=== PATIENT | female | born 2000 | race Caucasian/White ===

== ENCOUNTER 2020-04-22 09:00 | Outpatient (RCR) | payer MEDICAID, SELFPAY ==
--- NOTE | 2020-04-22 09:05 | BH.SGPN.GN ---
Behaviors/Verbalizations/Mental Status: [] Client alert and oriented, casual appearance. Eye contact good. Motor activity appropriate. Speech within normal limits. Affect congruent, mood anxious. Thoughts linear, logical, no signs of hallucinations or delusions. Reviewed client?s symptom tracker, no risk for suicidal ideation, plan, or intent as of 04/22/20. Client Response/Progress/Benefit: [] Client responded well to session, first day in IOP tx and she did well to remain attentive and engaged throughout. Client reports feeling nervous but excited today as she is anxious to start group therapy for the first time but is excited to be taking this step for her mental health. Expressed that her current positives include recognizing the need for help with her anxiety and reaching out for additional support, as well as making progress on repainting her room. Client shared wanting to learn new coping skills for her anxiety. Current stressor noted as adapting to the group environment but did well to identify that it may take some time to learn and find new skills to be helpful. Appeared to benefit from the support of the group environment. Will continue IOP tx to improve mood stability, increase healthy coping skill repertoire, and prevent decompensation. Narrative Note: []
--- NOTE | 2020-04-22 10:13 | BH.SGPN.GN ---
Behaviors/Verbalizations/Mental Status: []Client alert and oriented, neatly dressed and groomed. Eye contact good. Motor activity appropriate. Speech within normal limits. Affect unable to gather due to wearing a mask for COVID protocol, mood anxious. Thoughts linear, logical, no signs of hallucinations or delusions. Client Response/Progress/Benefit: []Client receptive of session, attentive in discussion and activity. Client discussed the quote and connected with personal and interpersonal consequences of not managing emotions. Client helped group identify barriers that impact one?s ability to communicate when emotions are high. These barriers included; negative thoughts, scattered thinking, and feeling out of control. Client stated it is important to communicate effectively when emotions are high to help supports understand. Attentive during psychoeducation on steps to improve emotional regulation. Client participated in the activity and did well to manage emotions throughout. Client did well to provide encouragement. Client appeared to benefit from increasing awareness of how emotions can impact communication and practicing in the moment coping skills. Client's first day of IOP. Will continue IOP tx to prevent decompensation of anxiety and depressive symptoms and to improve daily functioning. Narrative Note: []
--- NOTE | 2020-04-22 11:14 | BH.SGPN.GN ---
Behaviors/Verbalizations/Mental Status: []Client alert and oriented, neatly dressed and groomed. Eye contact good. Motor activity appropriate. Speech within normal limits. Affect unable to gather due to wearing a mask for COVID-19, mood anxious. Thoughts linear, logical, no signs of hallucinations or delusions. Client Response/Progress/Benefit: []Client engaged in session AEB client listening attentively to peers and providing input. Attentive during psychoeducation on 4 zones of regulation. Client able to identify feelings and behaviors for each zone. Group identified coping skills one can use to support self in each zone which included: journaling, opposite action, thought challenging, walking pets, listening to music, deep breathing, progressive muscle relaxation, and reaching out to supports. Client stated belief that she is in the yellow zone today because she feels anxious, nervous, and excited about it being her first day in IOP. Client reports she can benefit from going to [employer] today and sitting in nature. Benefited from increased education on zones of regulation or stages of alertness for emotions and healthy coping skills to use for each zone. Will continue IOP tx to prevent decompensation, improve mood stability, and increase healthy coping skills. Narrative Note: []
--- NOTE | 2020-04-22 14:44 | BH.COMM_ITS ---
Communication Note - Communication with Client Communication Note: Met with pt to complete intial paperwork and [place] suicide risk screening. No signicant changes since pre-admission screening. Low risk for suicide. Denies active SI, plan, or intent. Protective factors. Future- oriented. Pt denies any history of suicide attempts, but reported she once thought about writing letters when she was suicidal but then I stopped myself. Denies any cutting or other self-injurious behaviors.
--- NOTE | 2020-04-23 09:05 | BH.SGPN.GN ---
Behaviors/Verbalizations/Mental Status: [] Eye contact is good. Motor activity is appropriate. Appearance is casual. Speech is Appropriate. Mood is anxious. Affect is congruent. Thoughts are linear and logical. No evidence of psychosis. Reviewed daily check in sheet and no reports of suicidal ideations or intent. Client Response/Progress/Benefit: [] Pt was an active participant in group discussion. Daily symptom tracker notes 4/5 for anxiety. Emotion for today is tired and anxious. Shared that she is feeling emotionally overwhelmed and discussed some recent stressors which have been impacting her mood. Also notes that she did not sleep well last night. Yesterday was her first day in IOP and she beleives that it was helpful and is optimistic about the program. No progress noted. Benefited from group support, encouragment, and feedback. Will continues in IOP to maintain safety, increase functioning, and prevent decompensation. Narrative Note: []
--- NOTE | 2020-04-23 10:08 | BH.SGPN.GN ---
Behaviors/Verbalizations/Mental Status: []Client alert and oriented, casually dressed. Eye contact good. Motor activity appropriate. Speech within normal limits. Affect congruent, mood euthymic, anxious. Thoughts linear, logical, no signs of hallucinations or delusions. Client Response/Progress/Benefit: [] Client receptive of session, engaged throughout. She did well to work with the group on discussing the quote and identifying ways in which perspective can impact mental health and one's outlook. Client shared that learned behaviors and confirmation-bias has had impacts on her perspective in the past. Engaged in discussion on how one develops perspective. Client worked with group to identify how negative perspective can impact mental health which included: unrealistic expectations, self-sabotage, maintain depression and anxiety, assuming the worst, giving up, increased distorted thoughts, and relationship tension. Client connected with group discussion that having a positive or open-minded perspective can help a person overcome challenges, be more willing to seek help, and increase self-confidence. Provided insight that perspective can change depending on where we are currently at mental health brennan. Client appeared to benefit from increasing understanding of mental health benefits of a positive perspective and potential consequences to progress when perspective is negative. Progress noted in increased engagement in group environment. Will continue IOP tx to promote use of healthy coping skills, reduce anxiety symptoms further, and prevent decompensation. Narrative Note: []
--- NOTE | 2020-04-23 11:15 | BH.SGPN.GN ---
Behaviors/Verbalizations/Mental Status: []Client alert and oriented, casual dress, hygiene tended to. Eye contact good. Motor activity appropriate. Speech within normal limits. Affect congruent, mood anxious and euthymic. Thoughts linear, logical, no signs of hallucinations or delusions.? Client Response/Progress/Benefit: [] Client responded well to session, attentive and provided input throughout. Group shared that if one does not recognize their strengths, it could lead to increased mental health symptoms, taking on more than they can handle, and giving up on goals. Client provided a personal example of the power of perspective on self-esteem levels. Connected with the benefits of recognizing personal strengths on improving mental health which included: increased self-confidence, increased willingness to try new things, and open mindedness. Client able to identify personal strengths she possesses which includes: humor, intellect, and self-awareness. Client reported identified strengths have supported mental health progress in the past by allowing for her to remain positive and find the ?silver lining? in a negative situation, motivated her to work towards goals, and reminded herself of her own abilities in times in which she has struggled with self-doubt. Appeared to benefit from recognizing personal strengths and identifying strategies to increase recognition of strengths. ?Will continue IOP tx to prevent decompensation, improve consistent application of skills, as well as continue to improve mood stability and anxiety management. Narrative Note: []
--- NOTE | 2020-04-23 14:07 | BH.MDN ---
Multi-Disciplinary Note - Note 30-min Individual Time Started:: 12:23 Date: 04/23/20 Purpose of session/treatment goals addressed:: The purpose of this session was to gather information on client's current stressors, symptoms, and treatment goals. Another goal was to build rapport and provide psychoeducation. Eye Contact:: Good Motor Activity:: Appropriate Appearance:: Neat Speech:: Rapid Mood:: Euthymic, Anxious Affect:: Other - unable to gather due to wearing a mask for COVID-19 procotol. Thoughts:: Linear, Logical, No evidence of hallucinations/delusions noted Staff Interventions:: Therapist used active listening and open-ended questions to explore client's current stressors, symptoms, history, and treatment goals. Therapist used strengths perspective to build rapport and provide emotional support. Therapist provided psychoeducation on anxiety and maintainance cycles. Therapist gave client encouragement and normalized her anxiety on her first week of IOP. Therapist gave client homework to identify her physical warning signs, safety behaviors, and thoughts associated with anxiety. Client Response:: Client responded well to session, open to meeting with therapist. Client reported she felt less overwhelmed in group today and that client is starting to get used to the flow of IOP. Client willing to share some of her history with therapist. Client reported she has had anxiety forever and she began experiencing depression her radha year of high school. Client described her anxiety as an abusive partner because client's anxiety causes client to avoid, function poorly, and have negative thoughts. Client stated she used to have a better handle on her anxiety, but it has recently become worse. 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 Client reported she is on her 5th year in college because at one point her anxiety was so bad client's grades suffered. Client shared she gets panic attacks, has physical symptoms, and often has ruminations/intrusive thinking. Client reported last week she had intrusive thoughts about suicide which scared client. Client denies any suicidal ideations today. Client identified coping skills that have helped client in the past such as hiking, horseback riding, games, and being in nature. Client receptive to homework given by therapist. Risks/Concerns:: Client reported having intrusive suicidal ideations last week that lasted all day, but were controllable. Client shared she did not have a specific plans or intent to act on these thoughts. Client denies any active suicidal ideations, plan, or intent as of 04/23/20. Client reports ability to maintain safety and is future oriented. Progress Toward Goals/Plan:: Client's first week of IOP, is doing well to connect with peers and engage in group sessions. Client endorses a depressed mood, recent intrusive suicidal ideations, ruminations, panic attacks, racing thoughts, and inability to function at her baseline. Client worries that her anxiety will keep her from doing well in school. Will continue IOP tx to prevent decompensation, evaluate current medications, improve daily functioning, and reduce intensity of anxiety. Time Stopped:: 12:42
--- NOTE | 2020-04-24 09:16 | BH.NA_ITS ---
Physical Data - Vital Signs Pulse Rate: 72 Blood Pressure: 128/72 - Height/Weight Height: 1.6 m - stated Weight:: 95.254 kg - stated Weight in Pounds: 210.0 lbs Nutritional History - Appetite Nutritional Instructions:: If client shows signs of a swallowing problem, weight change of 10 pounds or more in the last month, or is on a diabetic diet, the physician will review and request a dietitian consult, as appropriate. All unintentional weight loss will be referred to the physician for decision on need for dietitian consult. Describe your appetite:: Fair - Client states that she has a decreased appetite from stress and her eating varies. Client states that she will eat 1-2 meals a day. Functional Assessment - Sleep Pattern Describe any problems with sleeping: Client states that she is not sleeping well and is having wierd/stressful dreams. Client states she is getting an average of 8 hours per night but was getting 12 hours of sleep prior. - Activities Motor Activity:: Functional - Client states that she had been feeling with low energy and motivation. Sensory/Communication Assess - Vision Problems Do you have any vision problems?: None - Communication Problems Do you have difficulty understanding what people are saying?: No Medical Problems/History - Additional History Additional comments:: Client states that she has a history of Depression, Anxiety, PTSD, and Panic disorder. Surgical History - Surgical History Have you had any surgeries? If so, list type and date:: Yes - Manilla teeth Substance Abuse - Substance Abuse Please describe substance abuse in the last 30 days:: Client states that she drinks ETOH occasionally/rarely. Client denies any tobacco use past or present. Client states that she has been using Marijuana daily to help with her panic attacks/anxiety. Client states that she consume caffiene, drinks pop 1-2 times per week. Mental Status Summary - Mental Status Significant Findings/Observations on Appearance and Mood:: Client is alert and oriented x4. Client is casually groomed. Client is cooperative with assessment, makes good eye contact during conversation. Client's speech is with normal rate and volume, coherent and spontaneous. Client appears mildly depressed and mildly anxious during assessment. Client makes logical associations, normal processing. Client denies delusions and hallucinations, none evident. Client appears to have good insight and judgement. Suicide Assessment - Suicidal Ideation Are you currently or have you been suicidal in the past?: No - Client reports past SI. Denies current SI/HI. Suicidal Intentional Rating Scale (SIRS): No suicidal thoughts (past or present), Suicidal thoughts (past) - Client states SI in the past, has never had any psychiatric admissions. Physician Notification: If Active suicidal thoughts/Will not contract for safety is checked, contact physician and document in the Physician Notification section below. Past Psychiatric History - MH Treatment Hx Past Psychiatric Medications:: Client states that she has been on past medications; Prozac, Zoloft, Effexor, Viibryd, Pristiq. Age of first mental health symptoms: Client states that she has had mental health symptoms for a long time but was officially diagnosed her freshman year in high school. Describe (age, circumstance, etc) any past hospitalizations: Client denies any past mental health hospitalizations. Current providers for mental health treatment (counselor, psychiatrist, catalytic case operator, etc.): Client states that she is seen by outpatient psych STACY Hernandez from [facility]. Client states that she sees a therapist at [facility] Zeinab Perez. Fall Risk Assessment - Age Age: Less than 60 - Mental Status Mental Status: Willing & able to ask for assistance when needed - Physical Status Physical Status: No problems - Impairments Impairments: None - Elimination Elimination: Continent AND independent - Gait or Balance Gait or Balance: Walks independently - Hx of Falls History of falls in the past 6 months: No known history - Medications/Substances Psychotropics:: Antidepressants, Antihistamines (e.g. Benadryl) Medications/substances used within the past 24 hours or ordered to administer: 1-2 of the medications/substances listed above - Total Score Total Points:: 1 RN Summary of Impressions - Impressions Recommendations: Include psychiatric and medical issues, treatment planning recommendations, and discharge planning needs. Impressions: Psychiatric Issues: Panic disorder (F41.0), generalized anxiety disorder, major depressive disorder recurrent moderate (F33.1); history of PTSD - Level of Care How do the client's current symptoms and functional deficits support need for this level of care?: Client details onset of current episode, stating it started approximately 2 weeks ago after stopping the Viibryd d/t having developed serotonin syndrome. Client states that she was having crying spells, daily panic asstacks, and increased anxiety. Client states that she would use Marijuana to try and treat the panic attacks and anxiety but it would not help. States she was having fleeting SI, low energy and motivation. Client states she is stressed from school, needing to bring her grades up for [employer]et school and resulting in her having to attend school longer with increased school debt. IOP will promote gains and prevent further decompensation while providing social support and skills training.
[2020-04-24 10:17] VITALS: BP 128/72; PULSE 72
--- NOTE | 2020-04-24 11:19 | BH.SGPN.GN ---
Behaviors/Verbalizations/Mental Status: []Client alert and oriented, casually dressed. Eye contact good. Motor activity appropriate. Speech within normal limits. Affect congruent, mood euthymic. Thoughts linear, logical, no signs of hallucinations or delusions. Client Response/Progress/Benefit: []Pt active participant as evidenced by pt providing input throughout session, taking notes, and completed worksheet. Pt engaged in discussion about discussing additional cognitive distortions. Pt engaged in discussion about how to reframe distorted thoughts to a more rational statement. Pt shared example of a personal distorted thought she has My boss seems angry so I must have done something wrong.? Pt reported this thought makes her feel anxious, nervous and on edge. Pt identified distortion to be personalization, mind-reading and predicting the future. Pt stated she reframed the distorted thought to ?I?m not responsible for how she feels, I know I didn?t do anything wrong?. Pt seemed to benefit from practicing identifying and reframing distorted thoughts. Pt to continue IOP level of care to increase healthy coping, decrease anxious symptoms and prevent decompensation. Narrative Note: []
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
--- NOTE | 2020-04-24 11:58 | BH.DR.ITP ---
Initial Treatment Plan - Patient Information Visit Information: ADMISSION DATE: EXPECTED LOS: 4-6 weeks - Problems/Symptoms Problem #1:: Anxiety Symptom:: Worry, rumination, panic attacks Problem #2:: Depression Symptom:: Sadness, decreased concentration, decreased motivation
--- NOTE | 2020-04-24 15:11 | BH.MTP_ITS ---
Master Treatment Plan - Patient Information Program Physician:: Dr. Soheila Juares Primary Therapist:: Jenae Combs - Psychiatric Diagnoses Psychiatric Diagnoses:: Panic disorder (F 41.0), generalized anxiety disorder, major depressive disorder recurrent moderate (F 33.1); history of PTSD Diagnosis Code(s):: F 41.0; F 33.1 - Estimated LOS Estimated LOS (in weeks):: 6 Problem/Goal #1 - Problem/Goal #1 Stated Goal:: Client will reduce anxiety and panic symptoms while increasing ability to function on daily basis. Description of Barriers: Client self-reports high, at times unrealistic, expectations for herself and perfectionism. Client shared this causes her to push herself too hard at times. 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 Client also self-identifies as a people pleaser and has difficulty advocating for her needs at times. Client has a history of serotonin syndrome and worries about medication. Client uses marijuana, which she self-reported is a safety behavior, but client reports it is one of the only things that helps with anxiety. Functional Impact: Client is a 20-year-old female with a history of panic disorder, DEL, and PTSD. Client has no history of psychiatric admissions. Client was referred to [facility] by her outpatient psychiatrist due to worsening depression, daily panic attacks, and fleeting suicidal ideations. Client reports an exacerbation of symptoms within the past two weeks which she believes was triggered by stopping her Viibryd due to serotonin syndrome. Client currently endorses crying spells, increased sleep, low energy, low motivation, lack of concentration, hopelessness, and anhedonia. Client reported she had fleeting suicidal ideations within the last two weeks, describing them as intrusive thoughts. Client denies that she would ever act on the thoughts, but she could t ell that it was getting bad and I needed help. Client's main stressors include school and student loans. 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 Client endorses severe anxiety with ruminations and daily panic attacks. Client reports she self- medicates with marijuana once a day. Client's anxiety and depressive symptoms have been impacting her daily functioning at home, school, and work. Client had to take time off from her job two weeks ago because of her anxiety. Client has not been back to work since. Goal Relevant Strengths/Supports: Client is a kind, intelligent, and hardworking young woman who verbalizes that she wants to improve her mental health. Client has strong family support and is self-motivated. 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 Client uses humor, animals, and creativity to cope with mental health. Client demonstrates good insight to her warning signs and has worked with her outpatient therapist on developing healthy coping skills. - Objectives Objective #1 Stated Objective: Client will identify 2-3 anxiety/panic triggers and 2 coping skills to use when feeling anxious to manage anxiety as shown by decreasing her DSM-5 scores for anxiety. Interventions: Therapist will provide education on anxiety, avoidance behaviors, and maintenance cycles. Therapist will help client explore personal symptoms and warning signs of anxiety. Therapist will teach client coping skills to improve emotional regulation, mindfulness, and distress tolerance to help client cope with anxiety in the moment. Discharge Criteria: Client will have accomplished this goal when she can identify at least 2 triggers and report using 2 coping skills to manage anxiety. Additionally, client will have accomplished this goal when her DSM-5 scores show a reducion for anxiety. Target Date: 06/03/20 Review Date: 05/22/20 Status: open Objective #2 Stated Objective: Client will identify 2-3 cognitive distortions that lead to rumination and learn 2-3 ways to manage these thoughts to better manage anxiety Interventions: Therapist will provide education on the most common cognitive distortions and teach client the connection between thoughts, emotions, and feelings. Therapist will assist client in identifying, challenging, and rep lacing dysfunctional thoughts with positive, more realistic thoughts. Therapist will use CBT and DBT techniques to help client gain awareness of thinking errors and learn how to more effectively handle negative thoughts. Therapist will also use self-compassion to help client set more realistic expectations for herself. Discharge Criteria: Client will have accomplished this goal when can identify at least 2 cognitive distortions and at least 2 coping skills to manage negative thoughts. Target Date: 06/03/20 Review Date: 05/22/20 Status: open Problem/Goal #2 - Problem/Goal #2 Stated Goal:: Client will reduce depressive symptoms, lack of motivation, and sadness due to major depressive disorder. Description of Barriers: Client self-reports high, at times unrealistic, expectations for herself and perfectionism. Client shared this causes her to push herself too hard at times. 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 Client also self-identifies as a pe ople pleaser and has difficulty advocating for her needs at times. Client has a history of serotonin syndrome and worries about medication. Client uses marijuana, which she self-reported is a safety behavior, but client reports it is one of the only things that helps with anxiety. Functional Impact: Client is a 20-year-old female with a history of panic disorder, DEL, and PTSD. Client has no history of psychiatric admissions. Client was referred to [facility] by her outpatient psychiatrist due to worsening depression, daily panic attacks, and fleeting suicidal ideations. Client reports an exacerbation of symptoms within the past two weeks which she believes was triggered by stopping her Viibryd due to serotonin syndrome. Client currently endorses crying spells, increased sleep, low energy, low motivation, lack of concentration, hopelessness, and anhedonia. Client reported she had fleeting suicidal ideations within the last two weeks, describing them as intrusive thoug hts. Client denies that she would ever act on the thoughts, but she could tell that it was getting bad and I needed help. Client's main stressors include school and student loans. 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 Client endorses severe anxiety with ruminations and daily panic attacks. Client reports she self- medicates with marijuana once a day. Client's anxiety and depressive symptoms have been impacting her daily functioning at home, school, and work. Client had to take time off from her job two weeks ago because of her anxiety. Client has not been back to work since. Goal Relevant Strengths/Supports: Client is a kind, intelligent, and hardworking young woman who verbalizes that she wants to improve her mental health. Client has strong family support and is self-motivated. 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 Client uses humor, animals, and creativity to cope with mental health. Client demonstrates good insight to her warning signs and has worked with her outpatient therapist on developing healthy coping skills. - Objectives Objective #1 Stated Objective: Client will identify at least 2-3 negative self-talk messages used to reinforce negative core beliefs and replace thoughts with positive, realistic messages. Interventions: Therapist will help client identify distorted, negative beliefs about self and replace with more realistic, affirmative messages. Therapist will use CBT to help client increase insight to the connection between thoughts, emotions, and behaviors. Therapist will also use dialectical thinking to help client combat all or nothing expectations. Therapist will encourage client to practice thought challenging. Discharge Criteria: Client will have achieved this goal when can verbalize at least 2 negative self-talk messages and effectively replace those thoughts with affirmative messages. Target Date: 06/03/20 Review Date: 05/22/20 Status: open Objective #2 Stated Objective: Client will learn and utilize 2-3 healthy coping strategies to better manage depressive symptoms as shown by a reduced DSM-5 scores for depression. Interventions: Through group and individual sessions, therapist will help client identify triggers and warning signs of depression and emotional dysregulation i ncluding emotional, physical, and behavioral changes. Therapist will teach client various coping skills to manage her symptoms and give client tangible resources to use to regulate emotions. Therapist will use cognitive restructuring techniques and help client gain awareness of negative thoughts that reinforce guilt and depression. Therapist will provide psychoeducation on maintenance cycles and help client learn ways to break unhealthy maintenance cycles. Therapist will help client incorporate behavioral activation and assist client in setting SMART goals. Discharge Criteria: Client will have met this goal when he can report learning and using at least 2 coping skills to manage depressive symptoms. Additionally, client will have met this goal when his depressive symptoms have reduced on the DSM-5 scale. Target Date: 06/03/20 Review Date: 05/22/20 Status: open
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
--- NOTE | 2020-04-25 09:08 | BH.SGPN.GN ---
Behaviors/Verbalizations/Mental Status: [] Client alert and oriented, casually dressed. Eye contact good. Motor activity appropriate. Speech within normal limits. Affect congruent, mood anxious, dysthymic. Thoughts linear, logical, no signs of hallucinations or delusions. Reviewed client?s symptom tracker, no risk for suicidal ideation, denies plan, or intent as of 04/25/20. Client Response/Progress/Benefit: [] Client attentive and willing to share with the group. Reports feeling ?overwhelmed and tired today as she is still adjusting to actively applying the skills learning in IOP tx, as well as remember all materials covered. Connected with discussion on breaking things down and focusing on small group take aways rather than trying to remember everything. Identified current mental health wins as teaching her mom about the different cognitive distortion which led to a positive discussion, as well as making the decision to practice self-love by taking additional time off work to focus on her mental health. Indicated this had been a difficult decision but she is proud of herself for making it. Appeared to benefit from identifying areas of progress as well as the supportive and structured group setting. Will continue IOP tx to continue to promote healthy skill application, improve mood stability and anxiety management, as well as prevent decompensation. Narrative Note: []
--- NOTE | 2020-04-25 10:17 | BH.SGPN.GN ---
Behaviors/Verbalizations/Mental Status: []Client alert and oriented, casual appearance. Eye contact good. Motor activity appropriate. Speech within normal limits. Affect congruent, mood dysthymic. Thoughts linear, logical, no signs of hallucinations or delusions. Client Response/Progress/Benefit: []Client responded well to session, contributing to discussion and engaged during the activity. Attentive during discussion on the quote. Group identified benefits to change included: personal growth, improving relationships, advancement in job, improved mood, better outlook on life, increased motivation and improved hopefulness. Worked with the group to identify barriers to change, which included: unmanaged emotions, toxic person, lack of knowledge of skills, fear of the unknown, self-sabotage, fear of failure, and cognitive distortions. Client participated along with group in activity where they identified and discussed the emotions related to change. Client reported her initial reaction to change varies based on the situation. At times she can embrace the change and other times she avoids change when possible. Benefited from increased awareness and understanding of emotions, benefits, and barriers related to change. Will continue IOP tx to increase healthy coping, challenge unrealistic expectations of self and prevent decompensation. Narrative Note: []
--- NOTE | 2020-04-25 11:16 | BH.SGPN.GN ---
Behaviors/Verbalizations/Mental Status: []Client alert and oriented, neatly dressed and groomed. Eye contact good. Motor activity appropriate. Speech within normal limits. Affect unable to gather due to wearing a mask for COVID-19 protocol, mood anxious. Thoughts linear, logical, no signs of hallucinations or delusions. Client Response/Progress/Benefit: []Client was an active participant, contributing to discussion and listening attentively to peers. Client participated during discussion on the change process as well as weighing the pros and cons associated with change. She shared specific emotions one might experience throughout the process of change, indicating anxiety and hope as emotions common with change. Client benefited from learning to work through pros/cons of personal changes through use of decisional balance sheet. Identified a change she wants to make is seeking a different type of treatment at [facility] for her anxiety. Client able to identify the pros and cons of this change and indicated that making the change would improve her mental health and potentially give her relief without the help of medications. Client?s goal today is to contact the providers at [facility] and learn more about the treatment. Recommended continued IOP tx to prevent decompensation of anxiety symptoms, improve mood stability, and reduce avoidance. Narrative Note: []
--- NOTE | 2020-04-29 09:04 | BH.SGPN.GN ---
Behaviors/Verbalizations/Mental Status: []Client alert and oriented, casually dressed and groomed. Eye contact good. Motor activity appropriate. Speech within normal limits. Affect unable to gather due to client wearing a mask for COVID-19 protocol. Mood anxious and irritable. Thoughts linear, logical, no signs of hallucinations or delusions. Therapist reviewed client?s symptom tracker and there were no signs of suicidal ideation or risk. Client Response/Progress/Benefit: []Client responded well to session, receptive to feedback from peers. Client reports feeling frustrated today. Client shared that the weekend was overall stressful, but there were good things too. Client reported she got to see her sister, saved a bird, and her mom helped client finish painting. Client reported that she experienced a lot of anxiety this weekend and felt overwhelmed. Client shared this caused negative thinking because client wants to get better quickly, so when she experiences anxiety client views it as starting over. Client receptive to thought challenging from group and recognized positives. Client appeared to benefit from reflecting on her use of coping skills and thought challenging in the moment. Will continue IOP tx to prevent decompensation of anxiety symptoms, improve work-related functioning, and increase mood stability. Narrative Note: []
--- NOTE | 2020-04-29 10:11 | BH.SGPN.GN ---
Behaviors/Verbalizations/Mental Status: [] Client alert and oriented, casual appearance. Eye contact good. Motor activity appropriate. Speech WNL. Affect congruent, mood euthymic and anxious. Thoughts linear, logical, no signs of hallucinations or delusions. Client Response/Progress/Benefit: [] Client responded well to session, attentive and engaged throughout discussion and activity. Client appeared to connect with the topic of fear of failure. Client reported that to her failure is ?a void? that can happened when not reaching a goal. Expressed that she has a hard time when faced with potential failure as she often views this as scary and painful. Group discussed common initial reactions to failure which included; decreased motivation, guilt, self-sabotage, and disappointment. Client connected with the concept that mindset is powerful in determining how a person moves forward after failing. Able to connect with the examples fellow participants shared of how failure can lead to future successes. Engaged and positive during the group activity, did well to guide fellow participants during activity. Client appeared to benefit from gaining awareness of the impact of fear of failure can have on one?s mental health and wellbeing. Progress noted in self-report of increased skill application and improved social anxiety management. Will continue IOP tx to prevent decompensation of mood symptoms, improve anxiety management, and continue to improve mental health sx management. Narrative Note: []
--- NOTE | 2020-04-29 11:20 | BH.SGPN.GN ---
Behaviors/Verbalizations/Mental Status: []Client alert and oriented, casual appearance. Eye contact good. Motor activity appropriate. Speech within normal limits. Affect congruent, mood anxious. Thoughts linear, logical, no signs of hallucinations or delusions. Client Response/Progress/Benefit: []Client responded well to session, participating during the group activity and willing to complete the worksheet. Client completed the fear of failure worksheet and reported that fear of failure has kept her from feeling confident in her abilities. Client able to identify barriers that reinforce her fear of failure which included: all or nothing thinking, lack of self-confidence, perfectionism, comparing self, expectations of others, and consequences of failing. Client attentive during discussion of the different strategies to help overcome fear of failure. Group identified strategies such as: positive self-talk, thought challenge, opposite action, redefine definition of failure, positive supports, and remembering that failure is a learning experience. Client appeared to benefit from learning ways to overcome fear of failure. Will continue IOP tx to increase healthy coping, challenge distorted thoughts and prevent decompensation. Narrative Note: []
--- NOTE | 2020-04-30 09:03 | BH.SGPN.GN ---
Behaviors/Verbalizations/Mental Status: [] Client alert and oriented, casually dressed. Eye contact good. Motor activity appropriate. Speech within normal limits. Affect congruent, mood euthymic, anxious. Thoughts linear, logical, no signs of hallucinations or delusions. Reviewed client?s symptom tracker, no risk for suicidal ideation, plan, or intent as of 04/30/20. Client Response/Progress/Benefit: [] Client attentive and willing to share with the group. Reports feeling excited but tired today as she has been trying to use all of the skills learned but feels a little emotionally overwhelmed by the amount of new information. Appeared to benefit from other participants normalizing these feelings for client. Client did well to identify current mental health wins which included reviewing cognitive distortions and helping her mom challenge her own negative thoughts, as well as making plans for self-care this weekend to begin playing a new video game she has been looking forward to. Expressed that her current stressor has been struggling with waking up ?shaky? but did well to implement health coping strategies such as deep breathing and listening to music to help this from ruining her whole day. Appeared to benefit from identifying areas of progress as well as the supportive and structured group setting. Will continue IOP tx to maintain gains, improve mood stability, and continue to promote healthy mental health sx management. Narrative Note: []
--- NOTE | 2020-04-30 10:16 | BH.SGPN.GN ---
Behaviors/Verbalizations/Mental Status: [] Client alert and orient. Appearance casual and appropriately groomed. Speech an appropriate rate and tone. Motor activity WNL. Mood anxious and euthymic, affect congruent. No evidence of delusion or hallucinations. Client Response/Progress/Benefit: [] Pt receptive to session, participating throughout. Provided input as the group brainstormed the positive and negative aspects of stress on physical and mental health. Group worked together to define stress and pt noted that to her stress is an overwhelming feeling or sense of obligation. Identified daily responsibilities as being common stressors. Group did well to identify that the benefits of stress include: motivates us, heightened senses/focus, increased productivity, and keeps us safe. Identified personal impacts of too much stress as: decreased performance, irritability, lashing out, and isolation/avoidance. Client identified her own current stressors as worries related to getting back to work, medication management, finishing her room, finances, physical and mental health, as well as fears about her future. Client reports that the level of her stress jar is ?Pretty full, but not overflowing yet?. Indicated being in IOP treatment has already assisted in better managing current stressors. Progress in improved insight and ability to recognize barriers impacting mental health progress as well as apply healthy coping skills. Recommended to continue IOP tx to improve healthy coping skill application, reduce mental health sx, and prevent decompensation. Narrative Note: []
--- NOTE | 2020-04-30 10:16 | BH.SGPN.GN ---
Behaviors/Verbalizations/Mental Status: []Client alert and oriented, casually dressed and groomed. Eye contact good. Motor activity appropriate. Speech within normal limits. Affect unable to gather due to wearing a mask for COVID-19 protocol, mood euthymic, anxious. Thoughts linear, logical, no signs of hallucinations or delusions. Client Response/Progress/Benefit: []Client receptive to session, participating throughout. Provided input as the group brainstormed the positive and negative aspects of stress on physical and mental health. Provided input on quote, indicating that choosing one thought over another is thought redirecting. Group worked together to define stress and provided input during discussion about eustress vs distress. Client identified her stressors today to include: getting back to work, medications, painting her bedroom, money, health, weight loss, mental health, and worries about future. Client reported her stress jar is not overflowing due to the help and support she has received at IOP. Seemed to benefit from increased awareness of her current stressors and insight of how stress impacts client. Recommended to continue IOP tx to continue healthy coping skill application, reduce mental health sx, and prevent decompensation. Narrative Note: []
--- NOTE | 2020-04-30 11:14 | BH.SGPN.GN ---
Behaviors/Verbalizations/Mental Status: []Client alert and oriented, neatly dressed and groomed. Eye contact good. Motor activity appropriate. Speech within normal limits. Affect unable to gather due to wearing a mask for COVID-19 protocol, mood euthymic, anxious. Thoughts linear, logical, no signs of hallucinations or delusions. Client Response/Progress/Benefit: []Client engaged participant in session as evidenced by client listening attentively to others and providing input during session. Client reported when she does not manage her stress well client cries, yells, sleeps to avoid, eats, smokes, and has panic attacks. Client contributing during discussion about the 4 A's of managing stress. Client able to give different strategies for all the A's and connect it back to her life. Client wants to work on managing her stressor of painting her room. Client reported she wants to reduce her stressor by focusing on ?doing it bit by bit? and reaching out to supports. Client shared this will help client reduce anxiety and be more realistic. Client seemed to benefit from increased awareness of the impact of stress on mental health and increasing repertoire of stress management strategies. Will continue IOP tx to promote use of healthy coping skills, reduce intensity of anxiety, and improve daily functioning. Narrative Note: []
--- NOTE | 2020-04-30 14:03 | BH.MDN_ITS ---
Multi-Disciplinary Note - Note 30-min Individual Time Started:: 12:22 Date: 04/30/20 Purpose of session/treatment goals addressed:: The purpose of this session is to address current symptoms, stressors, and triggers. Another goal was to discuss creating a fear ladder to help client overcome anxiety. Other topics included self-compassion. Eye Contact:: Good Motor Activity:: Appropriate Appearance:: Casual Speech:: Appropriate Mood:: Anxious Affect:: Other - unable to gather due to client wearing a mask for COVID-19 protocol. Thoughts:: Linear, Logical, No evidence of hallucinations/delusions noted Staff Interventions:: Therapist used active listening and open-ended questions to explore client's current symptoms, stressors, and triggers. Therapist used strengths perspective to empower client on her application of coping skills and participation in group. Therapist provided psychoeducation on anxiety and discussed the concept of a fear ladder. Therapist helped client identify and challenge distorted thinking that was reinforcing anxiety about returning to work. Client Response:: Client responded well to session, open to meeting with therapist. Client stated she has been enjoying group and stated it has been easy to participate. Client reports she has been trying to apply the coping skills she has been learning during group. Client identified using thought challenging and positive self-talk. Client continues to struggle with anxious thoughts and panic attacks, but she is proud of herself because client was able to fight off a panic attack the other day. Client reported her biggest stressor right now is feeling like she should return to work. When asked what her intent was behind returning to work, client shared I feel like they will be upset if I don't. Client and therapist challenged this thought. Client stated there is no evidence to suggest that she will get in trouble for not returning, in fact, her boss told her to take the time she needs. Client reported she does not feel ready to return, but she worries about what others think. Encouraged to practice self- compassion and challenge mental health stigma. Client receptive to discussion of creating a fear ladder. Client will work on this for homework. Risks/Concerns:: Client denies any suicidal ideations, plan, or intent as of 04/30/20. Client continues to be future oriented. Progress Toward Goals/Plan:: Client's second week of IOP. Client reports enjoying IOP so far and shared that everything has been very helpful. Client has been using positive self-talk and thought challenging which has been beneficial. Client continues to endorse ruminations, panic attacks, crying spells, difficulty concentrating, and lack of motivation. Will continue IOP tx to prevent decompensation, improve mood stability, and increase ability to cope with anxiety in the moment. Time Stopped:: 12:52
--- NOTE | 2020-05-01 09:06 | BH.SGPN.GN ---
Behaviors/Verbalizations/Mental Status: [] Client alert and oriented, casual dress. Eye contact good. Motor activity appropriate. Speech within normal limits. Affect unable to gather due to client wearing a mask for COVID-19 protocol, mood euthymic and anxious. Thoughts linear, logical, no signs of hallucinations or delusions. Reviewed client?s symptom tracker, no signs of suicidal ideation, plan, or intent as of today. Client Response/Progress/Benefit: [] Client responded well to session, providing feedback to peers. Client reports feeling anxious but positive today sharing that she is proud of the progress she has made but continues to struggle with overwhelming and distorted thoughts which is a current stressor. Noted that although she is continuing to struggle, she has improved in her overall ability to challenge these thoughts and use affirmational statements when experiencing negative self-talk. Current positives identified as taking the step to commit to taking the next 2 weeks of work off to focus on her mental health. Noted this was an anxiety provoking experience but that she felt proud of her decision to care for herself. Identified an additional win as making plans to hangout with a friend this weekend. Appeared to benefit from reflecting on her application of coping skills and ability to challenge negative thoughts. Will continue IOP tx to promote more consist mood stability, improve daily functioning, and reduce intensity of symptoms. Narrative Note: [] Narrative Note: []
--- NOTE | 2020-05-01 09:09 | BH.SGPN.GN ---
Behaviors/Verbalizations/Mental Status: []Client alert and oriented, casual appearance. Eye contact good. Motor activity appropriate. Speech within normal limits. Affect congruent, mood dysthymic. Thoughts linear, logical, no signs of hallucinations or delusions. Client Response/Progress/Benefit: []Pt responded well to session AEB pt openly sharing thoughts and feelings and listening attentively to others. Pt stated she had a rough night because engaged in self-deprecating thoughts after spilling paint two times. Pt reported she she a good job of managing her first pain spill, but after she spilled the paint again she started to thinking negatively of herself. Pt stated she struggled with challenging the negative thoughts. Pt stated a mental health positive was completing her painting project despite having negative thoughts. Pt reported current stressor is feeling frustrated about slipping back into negative thinking because makes her feel like she is not progressing. Pt seemed to benefit from support from peers. Pt to continue IOP to increase healthy coping, reframe distorted thought patterns and prevent decompensation. Narrative Note: []
--- NOTE | 2020-05-01 10:18 | BH.SGPN.GN ---
Behaviors/Verbalizations/Mental Status: []Alert and oriented. Eye contact is good. Motor activity is appropriate. Appearance is casual. Speech is Appropriate. Mood is anxious. Affect unable to gather due to wearing a mask for COVID-19 protocol. Thoughts are linear and logical. No evidence of psychosis. Client Response/Progress/Benefit: []Client was an active participant in group discussion and activity. Listened to discussion on quote and ?growth isn?t by chance because it?s your response that makes growth happen.? Client agreed with peers that there are internal and external forces in life. Group worked together to come up with common negative forces in life which can hold them back from growth. These included; negative thinking, self-doubt, toxic people, lack of effort, and use of unhealthy skills. Group then worked together to identify common positive forces which help them grow. These included; healthy coping skills, positive support, positive self-talk, and self-care. Client reported challenging negative thinking is a positive force. Benefited AEB increased insight and awareness on the impact of negative and positive forces on mental wellness. Will continue IOP tx to reduce decrease intensity of anxiety and panic while increasing ability to function. Narrative Note: []
--- NOTE | 2020-05-01 11:18 | BH.SGPN.GN ---
Behaviors/Verbalizations/Mental Status: [] Eye contact is good. Motor activity is appropriate. Appearance is casual. Speech is Appropriate. Mood is anxious, euthymic. Affect is constricted. Thoughts are linear and logical. No evidence of psychosis. Client Response/Progress/Benefit: [] Pt receptive of session, actively engaged in activity and group discussion. Worked with group to process the activity and connect negative forces in the task with those experienced in their own lives. Pt identified personal negative forces impacting mental health progress to include: unrealistic expectations, negative self-talk, unhealthy coping skills, unregulated emotions, and cognitive distortions. Group then worked together to identify common positive forces in activity and life which help us grow. Pt personal positive forces included: healthy supports, a desire to improve, personal resilience, personal goals, and willingness to put forth the effort. Pt was attentive during psychoeducation on the importance of utilizing many aspects of positive forces and benefited from group with increased insight on the impact of negative and positive forces on mental wellness. Identified wanting to improve kindness to self as a stronger positive force. Progress noted in self-report of improved ability to recognize and utilize healthy skills, as well as her improved use of thought challenging. Pt recommended continued IOP tx to maintain gains, improve symptom management, and continue to work on healthy anxiety management. Narrative Note: []
--- NOTE | 2020-05-01 12:08 | PCM.BH.PN_ITS ---
Progress Note Progress Note: History of Present Illness/Interim History: [] The patient is a 20-year-old single female who is seen in follow-up at the behavioral health program at [facility]. I last saw the patient about 1 week ago and she states that overall she is doing about the same as she was last week. Her mood remains somewhat depressed and she is still having occasional panic attacks. She is still having trouble motivating herself to accomplish things. She took 100 mg of Lamictal but felt dizzy the first day or so that she took it so she decreased back to 75 mg of Lamictal. She has been tolerating the 75 mg dose well. Her mother takes Lamictal for cyclothymia. The patient denies any suicidal or homicidal ideation. She denies hallucinations, delusions or any symptoms of abbie. She is having much less thoughts that she would not care if she or did not wake up tomorrow. Current Psychiatric Medications: [] Lamictal 75 mg p.o. daily (x1 week); Wellbutrin XL 300 mg p.o. every morning Mental Status Examination: [] Patient is a 20-year-old single female who appears normal for stated age and is wearing a mask due to the pandemic. She is cooperative and pleasant during the interview. She has no psychomotor agitation or retardation. She has good eye contact and her speech is normal rate and rhythm and fluent with no pressure. Mood remains somewhat depressed. Affect is full. Thought process is goal-directed and organized. Thought content: No evidence of suicidal or homicidal ideation. There is evidence of occasional passive thoughts that she would not care if she but says that these are less than last week. There is no evidence of hallucinations or del usions. Judgment is intact. Insight: Some present. Impulsivity: Low. Diagnoses: [] [place] I: [] Panic disorder (F 41.0), generalized anxiety disorder, major depressive disorder recurrent moderate; history of PTSD [place] II: [] Deferred [place] III: [] Irregular menses [place] IV:[]] School, and work issues Plan: [] The patient will continue the IOP program in behavioral health at [facility] as the support, structure, education, individual and group therapy will hopefully prevent worsening of the patient's symptoms. She felt safe during the interview and if at any time she does not feel safe she will let us know or go to the emergency room. The risk, options, possible side effects and complications of the medications were discussed with the patient and she understands and accepts these. She agrees to continue the Lamictal 75 mg p.o. daily and a prescription was sent in for 25 mg pills, take 3 or 75 mg p.o. daily. She will continue to follow-up with her outpatient psychiatric and medical providers. 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
--- NOTE | 2020-05-02 09:03 | BH.SGPN.GN ---
Behaviors/Verbalizations/Mental Status: []Client alert and oriented, casually dressed. Eye contact good. Motor activity appropriate. Speech within normal limits. Affect congruent, mood euthymic, anxious. Thoughts linear, logical, no signs of hallucinations or delusions. Reviewed client?s symptom tracker, no risk for suicidal ideation, plan, or intent as of 05/02/20. Client Response/Progress/Benefit: []Client attentive and willing to share with the group. Reports feeling anxious today which she explained is due to feeling she has made progress in managing her mental health sx, but continues to struggle with anxiety and self-doubt. Notes that this is a current stressor for her. Client receptive of support from the group and the discussion that progress is not linear as we often expect it to be. Did well to identify current mental health wins which included stepping outside her comfort zone and hanging out with a ?new friend? as well as continuing to practice components of self-compassion. Progress noted in client self-report of improved application of thought challenge skills and reports of reduced social anxiety. Will continue IOP tx to maintain gains, improve mood stability, and continue to promote healthy mental health sx management. Narrative Note: []
--- NOTE | 2020-05-02 10:17 | BH.SGPN.GN ---
Behaviors/Verbalizations/Mental Status: []Eye contact is good. Motor activity is appropriate. Appearance is casual. Speech is Appropriate. Mood is anxious, euthymic. Affect is unable to gather due to wearing a mask for COIVD-19 protocol. Thoughts are linear and logical. No evidence of psychosis. Client Response/Progress/Benefit: []Client was an active participant in group discussion and activity, providing input throughout. Client worked with peers on defining what goals are. Client reported ?if you wait to be proud of yourself, you get easily discouraged.? Brainstormed with the group the benefits of goal setting which included: increased motivation, sense of accomplishment, increased confidence, growth, and purpose. Client helped group discussed the barriers that keep people from either setting goals are following through with goals. Client gave an example of self-sabotage as a barrier to following through with goals. Able to provide feedback during psychoeducation on SMART goals. Engaged in activity and did well to provide ideas and listen to peers. Client appeared to benefit from learning the mental health benefits of setting goals that are SMART. Will continue IOP tx to further improve mood stability and reduce negative thinking that reinforces anxiety. Narrative Note: []
--- NOTE | 2020-05-06 09:02 | BH.SGPN.GN ---
Behaviors/Verbalizations/Mental Status: []Client alert and oriented, casual dress. Eye contact good. Motor activity appropriate. Speech within normal limits. Affect unable to gather due to client wearing a mask for COVID-19 protocol, mood anxious. Thoughts linear, logical, no signs of hallucinations or delusions. Reviewed client?s symptom tracker, no signs of suicidal ideation, plan, or intent as of today. Client Response/Progress/Benefit: [] Client responded well to session, attentive and providing supportive statements. Client reports feeling anxious today because client is considering texting her boss asking if client should return to work. 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 Client willing to process it more with individual therapist. Client reported several mental health wins today which included: finishing painting her room, following through with journaling her strengths, and using self-care over the weekend. Client shared she has been using positive affirmations and thought challenging to cope with her anxiety. Appeared to benefit from processing her stressor with the group and connecting with peers. Progress noted in client's generalization of coping skills. Will continue IOP tx to promote mood stability, further decrease anxiety, and improve daily functioning. Narrative Note: []
--- NOTE | 2020-05-06 11:15 | BH.SGPN.GN ---
Behaviors/Verbalizations/Mental Status: []Client alert and oriented, casually dressed, hygiene appeared to be tended to. Eye contact good. Motor activity appropriate. Speech within normal limits. Affect unable to gather due to wearing a mask for COVID-19 protocol, mood anxious and depressed. Thoughts linear, logical, no signs of hallucinations or delusions Client Response/Progress/Benefit: []Client receptive of session, engaged and positively contributing. Participated in group discussion on the various areas of self-care, benefits, and types of self-care activities for each area. Client completed self-assessment activity on her own utilization of the different areas of self-care and was able to identify current practices she actively practices and areas she can improve upon. Client reported she can improve financial, professional, and physical self-care. Client stated she wants to work on practicing maintaining a balanced diet more consistently and setting healthier boundaries in the workplace. Client appeared to benefit from increasing awareness of how she can improve self-care balance. Progress noted as client has been able to increase application of healthy coping skills and self-reports improved anxiety management. Will continue IOP tx to decrease negative thoughts, increased symptom management, and improve mood stability. Narrative Note: []
--- NOTE | 2020-05-07 09:02 | BH.SGPN.GN ---
Behaviors/Verbalizations/Mental Status: []Client alert and oriented, casual dress, hygiene tended to. Eye contact good. Motor activity appropriate. Speech within normal limits. Affect congruent, mood anxious. Thoughts linear, logical, no signs of hallucinations or delusions. Reviewed client?s symptom tracker, pt denies current suicidal thoughts or intention to date. Client Response/Progress/Benefit: [] Pt responded well to session as evidenced by her listening to peers, providing feedback to others and sharing thoughts and feelings. Pt stated she was able to complete her goal of writing down two mental health positives and two strengths. Pt stated she used skills of thought challenge, opposite action, and positive affirmations. Pt reported a stressor is feeling disconnected with her dad because they are arguing more lately about politics. Pt accepted feedback from group. Progress noted with pt reporting utilization of healthy coping skills and following through with completing her goal. Pt still reporting depressed mood with anxious thoughts. Pt to continue IOP to increase healthy coping, challenge negative thoughts and prevent decompensation. Narrative Note: []
--- NOTE | 2020-05-07 10:10 | BH.SGPN.GN ---
Behaviors/Verbalizations/Mental Status: []Eye contact is good. Motor activity is appropriate. Appearance is casual. Speech is WNL, soft. Mood is dysthymic, anxious. Affect unable to gather due to wearing a mask for COVID-19 protection. Thoughts are linear and logical. No evidence of psychosis. Client Response/Progress/Benefit: [] Pt was an active participant AEB contributing to discussion and participating in activity. Though at times remaining passive and taking notes rather than providing input. Connected with the topic of pitfalls and helped the group discuss barriers that keep them from choosing a healthier path to mental wellness. These barriers included; lack of self-confidence, negative self-talk, grief, lack of awareness, desire to remain in comfort zone, and toxic people. Pt reported that low self-confidence and avoidance are barriers that have impacted ability to overcome pitfalls in the past. Group worked together to identify examples of personal pitfalls which included; not reaching out to supports, isolation, avoidance, making excuses, lack of motivation, not using skills, and overworking. Engaged during the activity and did well to provide support and encouragement to the group. Several times pt appeared to become anxious when faced with increased responsibilities during the task. She did well to use healthy coping skills to regulate these emotions and prevent becoming overwhelmed. Pt benefited from increased awareness on the impact that pitfalls can have on mental health. Will continue IOP tx to further decrease negative thinking that impacts anxiety, improve communication with supports, and better manage her mental health sx. Narrative Note: []
--- NOTE | 2020-05-07 11:08 | BH.SGPN.GN ---
Behaviors/Verbalizations/Mental Status: []Client alert and oriented, casually dressed and groomed. Eye contact good. Motor activity appropriate. Speech within normal limits. Affect unable to gather due to client wearing a mask for COVID-19 protocol, mood anxious. Thoughts linear, logical, no signs of hallucinations or delusions. Client Response/Progress/Benefit: []Client receptive of session, engaged throughout AEB client participating in discussion and listening to others. Processed activity with group and connected it to overcoming personal pitfalls in life. Client completed a worksheet where she identified personal pitfalls impacting mental health progress. Identified pitfalls as: unrealistic expectations, fear of failure, avoidance, negative self-talk, and all or nothing thinking. Attentive and contributing during psychoeducation on strategies to overcome pitfalls. Client stated she will work on the pitfall of unrealistic expectations. Client stated she will work on this by asking herself would I have these expectations for a loved one? Benefited from identifying personal pitfalls and strategies to overcome these pitfalls. Client to continue IOP level of care to improve mood stability, reduce intensity of anxiety, and improve work-related functioning. Narrative Note: []
--- NOTE | 2020-05-07 14:02 | BH.MDN ---
Multi-Disciplinary Note - Note 45-min Individual Time Started:: 12:19 Date: 05/07/20 Purpose of session/treatment goals addressed:: The purpose of this session was to address client's current stressors, symptoms, and ambivalence. Another was to use a decisional balance technique to improve healthy decision making. Other topics included: thought challenging and self-compassion. Eye Contact:: Good Motor Activity:: Appropriate Appearance:: Casual Speech:: Appropriate Mood:: Anxious Affect:: Congruent - tearful Thoughts:: Linear, Logical Staff Interventions:: Therapist used active listening and open-ended questions to explore client's current stressors, symptoms, and ambivalence. Therapist used a decisional balance exercise to help client make a well-balanced decision. Therapist assisted client in using cognitive restructuring techniques to combat distortions. Therapist also encouraged client to use self-compassion rather than having unrealistic expectations for self. Therapist gave client homework to challenge two negative thoughts a day. Client Response:: Client responded well to session, open to meeting with therapist. Client shared she has been doing well with applying coping skills. Client reflected on her progress and recognized that it has been one week since she had a full blown panic attack. Client shared her biggest stressor right now is feeling ambivalent about whether she should return to work or not. Client stated she is torn because on one hand client is feeling not ready to return because of anxiety, but on the other hand what if I am ready and I'm just making excuses. Client receptive to completing a decisional balance chart. 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 After further reflection, client recognized that she would benefit more from continuing to take time off work. Client's pros for staying off work included: time for self-care, continuing to work on her mental health, and getting better in a less stressful environment. Client shared the main reason she wanted to return to work is because she fears what others will think if she stays off. Client able to practice thought challenging and self-compassion to combat negative thinking. Receptive to communicating her choice with her boss and parents. Also receptive to practicing thought challenging for homework. Risks/Concerns:: Client denies any suicidal ideations, plan, or intent as of 05/07/20. Client is future oriented and notes many protective factors. Progress Toward Goals/Plan:: Client has been responding well to treatment and is demonstrating progress towards her treatment goals. Client has been using healthy coping skills including deep breathing, positive self-talk, mindfulness, and thought challenging. Client reported her last panic attack was a week ago which is significant progress because she was reporting daily panic attacks. Client continues to struggle with decision making, ruminations, poor appetite, crying spells, and inability to work. Client will continue IOP tx to promote use of healthy coping skills, improve work-related functioning, and reduce anxiety symptoms. Time Stopped:: 13:00
--- NOTE | 2020-05-08 10:25 | BH.SGPN.GN ---
Behaviors/Verbalizations/Mental Status: []Client alert and oriented, neatly dressed and groomed. Eye contact good. Motor activity appropriate. Speech within normal limits. Affect unable to gather due to wearing a mask for COVID-19 protocol, mood euthymic. Thoughts linear, logical, no signs of hallucinations or delusions. Client Response/Progress/Benefit: []Client was an engaged participant throughout group session AEB client contributing to discussion of healthy versus unhealthy coping skills. Client reported ?we don?t have to carry our stress load in unhealthy ways, we can use positive skills.? Group identified unhealthy coping skills which included; avoidance, isolation, drugs and alcohol, denial, and taking emotions out on others. Group reported people turn to unhealthy skills because of habit and learned behaviors. Client agreed that learning healthy coping skills takes self-awareness and practice. Participated in the activity and discussed the importance of creating a strong foundation of healthy coping skills in order to manage life stressors. Client seemed to benefit from increased awareness of importance of increasing healthy coping skills and consequences of utilizing unhealthy coping skills. Client will continue IOP tx to promote gains, further decrease anxiety, and improve work-related functioning. Narrative Note: []
--- NOTE | 2020-05-09 09:03 | BH.SGPN.GN ---
Behaviors/Verbalizations/Mental Status: []Client alert and oriented, neatly dressed and groomed. Eye contact good. Motor activity appropriate. Speech within normal limits. Affect unable to gather due to wearing a mask for COVID-19 protocol, mood euthymic. Thoughts linear, logical, no signs of hallucinations or delusions. Reviewed client?s symptom tracker, no risk for suicidal ideation, plan, or intent as of 05/09/20. Client Response/Progress/Benefit: []Client responded well to session, providing supportive statements to peers. Client reports feeling calm and optimistic today. Client shared she has reached the one week masha of the journaling goal client set for herself last week. Client stated she is proud of herself for sticking to this goal and it has helped client reframe negative thinking. Client's other mental health wins included having a productive conversation with her mother and spending time with a friend. Client's stressor today is that she needs to have a conversation with her dad and client feels anxious about this. Appeared to benefit from reflecting on her generalization of coping skills and improved mood. Progress noted in client's report of reduced intensity of anxiety. Will continue IOP tx to further decrease symptoms, improve self-confidence, and increase ability to function. Narrative Note: []
--- NOTE | 2020-05-09 11:20 | BH.SGPN.GN ---
Behaviors/Verbalizations/Mental Status: []Client alert and oriented, casual in appearance. Eye contact good. Motor activity appropriate. Speech within normal limits. Affect congruent, mood euthymic, anxious. Thoughts linear, logical, no signs of hallucinations or delusions. Client Response/Progress/Benefit: []Pt active participant and providing input throughout. Appeared to connect with the discussion reviewing three categories of skills for managing anxiety which included mind-based, body-based, and self-soothing. She worked with the group to provide examples throughout and contributed ideas. Pt described to the group what mindfulness is and gave an example of grounding skills she has used in the past to help with managing her own anxiety. Pt did well to identify a skill in each mindfulness category she is willing to practice. Identified skills included: body-based: nature walks, Self-soothing as: watching Tunde Ross, and mind-based: logic games. Pt seemed to benefit from increased awareness of healthy skills to manage anxiety related symptoms and in identifying skills willing to practice outside treatment environment. Progress noted with increased thought challenging and reduced reports of panic sx. Client to continue IOP level of care to increase healthy coping skills, continue to promote emotion regulation skills, and prevent decompensation. Narrative Note: []
--- NOTE | 2020-05-13 09:05 | BH.SGPN.GN ---
Behaviors/Verbalizations/Mental Status: [] Client alert and oriented, casual dress. Eye contact good. Motor activity appropriate. Speech within normal limits. Affect unable to gather due to client wearing a mask for COVID-19 protocol, mood euthymic and anxious. Thoughts linear, logical, no signs of hallucinations or delusions. Reviewed client?s symptom tracker, no signs of suicidal ideation, plan, or intent as of today. Client Response/Progress/Benefit: []Pt responded well to session, providing feedback to peers. Reports feeling a little anxious but calm today. Pt indicated that she is nervous about an upcoming vet appointment for her cat as she always gets anxious about something being wrong when taking them for check-ups. She did well to challenge ?what if? thoughts and identify skill such as listening to calming music that she could use to reduce overall anxiety levels. Pt expressed using thought challenging much more consistently which is a current mental health positive for her. Additional positive noted as reaching out to a new friend regarding her anxiety and expressed that this had been a positive experience as her friend has struggled with their own anxiety and could relate. Pt appeared to benefit from reflecting on her application of coping skills and continued ability to challenge negative thoughts. Will continue IOP tx to promote more consist mood stability, improve daily functioning, and reduce intensity of symptoms. Narrative Note: []
--- NOTE | 2020-05-13 11:16 | BH.SGPN.GN ---
Behaviors/Verbalizations/Mental Status: []Client alert and oriented, casually dressed and groomed. Eye contact good. Motor activity appropriate. Speech within normal limits. Affect unable to gather due to client wearing a mask for COVID-19 protocol, mood euthymic. Thoughts linear, logical, no signs of hallucinations or delusions. Client Response/Progress/Benefit: []Client engaged participant as evidenced by client providing input throughout discussion and listening attentively to peers. Client participated in the discussion of how each resiliency component can help increase personal resiliency. Client identified current resiliency traits she currently possesses and then identified what trait she would like to improve. Client reports belief she has been using the resiliency traits of making connections and self-care. Client stated she would like to work on nurturing a positive view of self. Client reported she will do this by challenging one negative thought, based on a past experience, a day to promote self-compassion. Client appeared to benefit from increasing insight to ways in which client can improve resilience to adversity and daily stressors. Client to continue IOP tx to improve mood stability, increase work-related functioning, and promote emotional regulation. Narrative Note: []
--- NOTE | 2020-05-14 09:00 | BH.SGPN.GN ---
Behaviors/Verbalizations/Mental Status: []Client alert and oriented, neatly dressed and groomed. Eye contact good. Motor activity appropriate. Speech within normal limits. Affect unable to gather due to wearing a mask for COVID-19 protocol, mood anxious. Thoughts linear, logical, no signs of hallucinations or delusions. Reviewed client?s symptom tracker, no risk for suicidal ideation, plan, or intent as of 05/14/20. Client Response/Progress/Benefit: []Client responded well to session, receptive to feedback and providing support to others. Client reports feeling anxious today. Client shared she had a lot of social anxiety this weekend, but for the most part, client was able to manage it. Client's game plan from last week was to challenge negative thinking and client stated she has been practicing this skill frequently. Client stated she has also been spending time outdoors to decompress which has been effective in reducing anxious thoughts and physical symptoms. Appeared to benefit from reflecting on her generalization of coping skills. Will continue IOP tx as client continues to struggle with work-related functioning and can further reduce intensity of anxiety. Narrative Note: []
--- NOTE | 2020-05-14 11:16 | BH.SGPN.GN ---
Behaviors/Verbalizations/Mental Status: []Client alert and oriented, casually dressed and groomed. Eye contact good. Motor activity appropriate. Speech within normal limits. Affect congruent, though difficult to assess as pt wearing a mask due to COVID-19 hospital protocol, mood euthymic and anxious. Thoughts linear, logical, no signs of hallucinations or delusions. Client Response/Progress/Benefit: [] Client an active participant AEB contributing to discussion, providing feedback, and taking notes throughout. Client participated in group discussion about the different types of support and benefits different support can provide. She gave examples regarding occupational, self-help, and spiritual supports. Client noted that spiritual support can include meditation and being outdoors in nature. Client identified she would like to increase social support in the area of personal mental health support by challenging herself to reach out to current supports more consistently and being open to developing new relationships. Client shared this will help improve the diversity and strength of her overall support system. Client seemed to benefit from identifying a type of support she would like to improve upon and brainstorming small steps to take in order to successfully do so. Progress noted as shown by client's improved ability to manage anxieties without escalating to panic and increased skill application. Client to continue IOP tx to maintain gains, improve healthy coping skills, and increase mood stability. Narrative Note: []
== END 2020-05-14 23:59 ==
LOC: BHIOP 09:00
PROVIDERS: Referring Provider Psychiatry & Neurology Psychiatry; Visit Provider Psychiatry & Neurology Psychiatry
DX: F41.0 Panic disorder [episodic paroxysmal anxiety] (principal); F41.1 Generalized anxiety disorder; F33.1 Major depressive disorder, recurrent, moderate; F12.90 Cannabis use, unspecified, uncomplicated; N92.6 Irregular menstruation, unspecified; Z79.899 Other long term (current) drug therapy
CPT/HCPCS: 90792; 99213; H0035; H2012; H2020; T1002; 90832; 90834

== ENCOUNTER 2020-05-15 09:00 | Outpatient (RCR) | payer MEDICAID, SELFPAY ==
[2020-05-15 00:35] VITALS: BP 128/72; PULSE 72
--- NOTE | 2020-05-15 09:05 | BH.SGPN.GN ---
Behaviors/Verbalizations/Mental Status: [] Client alert and oriented, casual dress. Eye contact good, tearful when processing. Motor activity appropriate. Speech within normal limits. Affect unable to gather due to client wearing a mask for COVID-19 protocol, mood dysthymic and anxious. Thoughts linear, logical, no signs of hallucinations or delusions. Reviewed client?s symptom tracker, no signs of suicidal ideation, plan, or intent as of today. Client Response/Progress/Benefit: [] Client attentive and openly shared with the group, tearful throughout. Reports feeling anxious today. Client attributes this to struggling to manage her anxiety on the previous date and feeling discouraged as a result. She went on to discuss trying several different skills to ease her anxiety without success which resulted in client beginning to experience intrusive thoughts. Shared worrying that she had not made as much progress as she had thought but was able to apply thought challenging to prevent from further escalating. Client was receptive of and appeared to benefit from supportive feedback and suggestions provided by the group. Able to identify that today is a new day and there are several steps she can take to manage her anxiety this morning. Progress noted in client ability to apply thought challenging skills to reduce escalation. Will continue IOP tx to prevent decompensation, improve mood stability, and promote healthy mental health sx management. Narrative Note: []
--- NOTE | 2020-05-15 10:22 | BH.SGPN.GN ---
Behaviors/Verbalizations/Mental Status: []Client alert and oriented, casual dress, hygiene tended to. Eye contact good. Motor activity appropriate. Speech within normal limits. Affect unable to gather due to wearing a mask for COVID-19 protocol, mood euthymic and anxious. Thoughts linear, logical, no signs of hallucinations or delusions. Client Response/Progress/Benefit: []Client responded well to session, attentive and contributing to discussion. Client worked cooperatively with the group to identify factors that contributed to how we define ourselves which included: upbringing, societal expectations, our abilities, accomplishments, failures, education, and how others view us. Client reported she has experienced the impacts of mental health stigma. Client reported she has been told ?anxiety is something I can just control.? Client worked with group to identify that stigma can keep people from: connecting with others, being open with others, going after a job or goals, and asking for help. Client seemed to benefit from increased awareness of how mental health stigma can impact progress. Client to continue IOP tx further decrease anxiety symptoms, improve daily functioning, and increase confidence. Narrative Note: []
--- NOTE | 2020-05-15 11:18 | BH.SGPN.GN ---
Behaviors/Verbalizations/Mental Status: []Pt eye contact fair, casually dressed, motor activity appropriate, speech normal rate and tone. mood euthymic. Affect could not be assessed due to patient wearing a mask because of COVID-19 precautions. thoughts linear and intact, no evidence of delusions or hallucinations. Client Response/Progress/Benefit: []Client responded well to session AEB listening and taking notes, as well as providing input throughout session. Engaged in activity about facts and statistics of mental illness. Group connected with the mental health statistics, recognizing the prevalence of mental health. Group brainstormed strategies to combat social and perceived stigma which included: educating others and themselves, no longer using negative language about mental illness, being open about mental health and not using deflection like humor or joking to minimize symptoms. Client stated she would benefit from being more open and honest to others about her mental health in order to reduce social and perceived mental health stigma. Appeared to benefit from increasing awareness of strategies to combat stigma. Will continue IOP tx to reduce anxiety, challenge distorted thoughts, and prevent decompensation. Narrative Note: []
--- NOTE | 2020-05-15 14:08 | BH.MDN_ITS ---
Multi-Disciplinary Note - Note 45-min Individual Time Started:: 12:05 Date: 05/15/20 Purpose of session/treatment goals addressed:: The purpose of this session was to address current mood state and review techniques to help client manage anxiety and challenge distortions. Other topics included: boundary setting, communication, and self-care. Eye Contact:: Good Motor Activity:: Appropriate Appearance:: Neat Speech:: Rapid Mood:: Anxious Affect:: Congruent - tearful at times Thoughts:: Racing, No evidence of hallucinations/delusions noted Staff Interventions:: Therapist used active listening and open-ended questions to explore client's current symptoms, triggers, and stressors. Therapist helped client process a recent trigger with client's mother. Therapist gently challenged client's distorted thought patterns and assisted client in reframing negative thoughts. Therapist explore barriers to boundary setting with client's mother and helped client challenge these barriers. Therapist empowered client to practice verbalizing boundaries. Therapist gave client homework to set boundaries tonight and practice self-care. Client Response:: Client responded well to session, open to meeting with therapist. Client reports feeling anxious and exhausted today following a stressful day yesterday. Client reported her mother is a support in client's life, but also a trigger for anxiety. Client shared my mom catastrophizing a lot and that their anxiety feeds off one another. Client reports this has been the case for a long period of time. Client shared her mother refuses to get professional help and relies mainly on client and client's father for support. Client stated it's like I'm her therapist and it's a lot of pressure. Client recognizes she could benefit from setting boundaries with her mother, but client is afraid to verbalize boundaries. Client fears that she will hurt her mother and ?feel like I?m walking on eggshells.? Client receptive to thought challenging from therapist. Client acknowledged that if client continues to not set boundaries client's mental health will be negatively impacted and client will continue to enable her mother from not getting professional help. Client receptive to having a family session to help verbalize some of client's boundaries and improve communication. Client plans to communicate one boundary tonight and to take time for self-care. Risks/Concerns:: Client denies any suicidal ideations, plan, or intent as of 05/15/20. Future oriented an multiple protective factors. Progress Toward Goals/Plan:: Client has been responding well to treatment and is demonstrating progress towards her treatment goals. Client has been using healthy coping skills including deep breathing, positive self-talk, mindfulness, and thought challenging. Client reported her last panic attack was two weeks ago and yesterday she experienced significant anxiety, but client did not have a panic attack. Client continues to struggle with ruminations, poor appetite, crying spells, and boundary setting with her mother that causes distress. Client will continue IOP tx to promote use of healthy coping skills, improve work- related functioning, and reduce anxiety symptoms. Time Stopped:: 12:48
--- NOTE | 2020-05-16 10:19 | BH.SGPN.GN ---
Behaviors/Verbalizations/Mental Status: []Client alert and orient. Appearance casual and appropriately groomed. Speech an appropriate rate and tone. Motor activity WNL. Mood euthymic, affect unable to gather due to client wearing a mask for COVID-19 protocol. No evidence of delusion or hallucinations.? Client Response/Progress/Benefit: []Client responded well to session, attentive and contributing to discussion. Group discussed benefits of healthy communications on mental health which included: getting help, better relationships, less misinterpretations, and improved emotional regulation. Group additionally discussed potential barriers to communication including: shutting down, tone of voice, assumptions, yelling, passive aggressive behaviors, and poor emotional regulation. Client stated mind-reading is a ?big communication pothole? because it causes frustration. Attentive during psychoeducation on the four communication styles. Client self-reports identifying most with the passive communication style. Client shared she is a people pleaser and does not want to ruin relationships. However, client finds that when she is passive, client does not express her needs or set healthy boundaries. Progress noted in increased insight into personal communication styles and barriers. Client to continue in IOP tx further decrease anxiety, improve daily functioning, and increase self-confidence. Narrative Note: []
--- NOTE | 2020-05-17 09:00 | BH.SGPN.GN ---
Behaviors/Verbalizations/Mental Status: [] Client alert and oriented, casual dress. Eye contact good. Motor activity appropriate. Speech within normal limits. Affect unable to gather due to client wearing a mask for COVID-19 protocol, mood euthymic and anxious. Thoughts linear, logical, no signs of hallucinations or delusions. Reviewed client?s symptom tracker, no signs of suicidal ideation, plan, or intent as of today. Client Response/Progress/Benefit: [] Pt responded well to session, providing feedback to peers. Reports feeling cautiously optimistic today. Pt indicated that she is feeling more confident in her progress and ability to better manage symptoms of anxiety since struggling on the previous date. Expressed that she took the day to practice stepping outside of her usual comfort zone and challenged herself to have an unstructured ?relaxation day?. Shared typically feeling the need to create a plan which may have been contributing to overall anxiety levels. So, instead pt told herself ?You need to actually take a break? and spent time enjoying nature. Able to identify this as a mental health win. Additional win noted as planning to begin a building project with her dad which is something she enjoys doing. Noted an ongoing stressor as ongoing nausea, but expressed plans to touch base with the psychiatrist and was receptive of tips from the group. Progress noted in pt ability to implement healthy coping skills and self-reported improved mental health sx. Will continue IOP tx to promote more consist mood stability, improve daily functioning, and reduce intensity of symptoms. Narrative Note: []
--- NOTE | 2020-05-21 11:22 | BH.SGPN.GN ---
Behaviors/Verbalizations/Mental Status: []Client alert and oriented, neatly dressed and groomed. Eye contact good. Motor activity appropriate. Speech within normal limits. Affect unable to gather due to wearing a mask for COVID-19 protocol, mood anxious and euthymic. Thoughts linear, logical, no signs of hallucinations or delusions. Client Response/Progress/Benefit: []Client was an active participant in group discussion and attentive during the activity. Engaged during activity and provided ideas on how to cope with internal barriers that keep clients stuck from moving towards goals. Barriers identified by the group included: fear of the unknown, not knowing what skills to use, poor boundaries, low motivation, and negative thinking. Strategies identified for overcoming these barriers included: deep breathing, affirmations, reaching out to supports, thought challenging, opposite action, and positive self-talk. Client reported she wants to work on overcoming her barrier of fear of failure which is keeping client from returning to work. Client shared she plans to do this by facing her fears and texting her boss to return to work on a part-time basis. Benefited from group by identifying obstacles and solutions to desired reality. Progress noted in client?s increased self-awareness of barriers. Will continue IOP tx to promote gains made in reducing the intensity of her anxiety and to improve daily functioning. Narrative Note: []
--- NOTE | 2020-05-21 14:25 | BH.MDN_ITS ---
Multi-Disciplinary Note - Note 45-min Individual Time Started:: 09:08 Date: 05/21/20 Purpose of session/treatment goals addressed:: The purpose of this session was to address client's current symptoms, application of coping skills, and progress. Another goal was to discuss plan of care moving forward and ways to promote gains. Other topics included scheduling a family session. Eye Contact:: Good Motor Activity:: Appropriate Appearance:: Neat Speech:: Appropriate Mood:: Euthymic Affect:: Congruent - laughing Thoughts:: Linear, Logical, No evidence of hallucinations/delusions noted Staff Interventions:: Therapist used active listening and open-ended questions to explore client's current symptoms, application of coping skills, and thoughts on progress. Therapist gave client the DSM-5 and reviewed progress with client. Therapist explored client?s goals moving forward and discussed plan of care. Therapist used strengths perspective to empower client on her boundary setting this weekend, use of coping skills, and progress. Therapist gave client homework on self-care. Client Response:: Client responded well to session, open to meeting with therapist. Client reported she has been doing well and was cheerful about recent progress. Client shared she set a boundary with her mother this weekend and spent time with her father. Client has been practicing thought challenging and spends time each night practicing mindfulness. Client shared I'm definitely kinder to myself. Client stated thought challenging and self-compassion have helped client reduce anxiety and combat unrealistic expectations. Client reported she would like to continue working on managing her physical anxiety symptoms and shared that she has been having issues with eating and nausea. Client completed the DSM-5 and expressed excitement over her progress. Client shared I think I want to ramp it up a notch. Client would like to work on sitting with the uncomfortable, maintenance, and being intentional about self- care. Client practiced sitting uncomfortable with the therapist during session. Client and therapist sat in silence for a minute. Client shared she was anxious, but used her sense of humor to cope. Client willing to work on self-care for homework. Risks/Concerns:: Client denies any suicidal ideations, plan, or intent as of 05/21/20. Progress Toward Goals/Plan:: Client has been responding well to treatment and is demonstrating progress towards her treatment goals. Client has been using healthy coping skills including deep breathing, positive self-talk, mindfulness, and thought challenging. Client her last panic attack was several weeks ago and that she has been able to manage her anxiety more consistently. Client?s DSM-5 scores have decreased by 50% since admission. Client continues to struggle with ruminations, poor appetite,unrealistic expectations of self, and boundary setting. Client will continue IOP tx to promote use of healthy coping skills, improve work-related functioning, and reduce anxiety symptoms. Time Stopped:: 09:48
--- NOTE | 2020-05-21 14:42 | BH.MTP_ITS ---
Treatment Plan Review Date of Admission:: 04/22/20 Date of Treatment Plan Review:: 05/21/20 Admitting Diagnoses:: Panic disorder (F 41.0), generalized anxiety disorder, major depressive disorder recurrent moderate (F 33.1); history of PTSD Current Diagnoses:: Panic disorder (F 41.0), generalized anxiety disorder, major depressive disorder recurrent moderate; history of PTSD Patient's Response to Treatment:: Client has been responding well to treatment and is demonstrating progress towards her treatment goals AEB reduction in DSM-5 scores and high engagement in group and individual sessions. Client has been using healthy coping skills including deep breathing, positive self-talk, mindfulness, and thought challenging. Client is an active group member who often gives insight to discussion, feedback to peers, and connects the topics to her daily life. Client is highly engaged in her individual sessions and is consistent with homework and skill utilization outside of group. Client's consistent application of skills is likely the reason for her reduction in symptoms and improved mood. Client is established with aftercare and would like to join the [facility] aftercare group when she discharges. Status of Current Problems and Symptoms: Client continues to struggle with ruminations, poor appetite, unrealistic expectations of self, and boundary setting with her mother. Client stated she has been feeling sick to my stomach most days which makes it difficult for client to eat. Client shared this is consistent with her physical symptoms of anxiety in the past. Will see Dr. Juares about this tomorrow. Client's symptoms of anxiety and depression have decreased, but her anxiety scores are still within the moderate to severe range. Problem #1 Problem Name:: Will reduce anxiety and panic symptoms while increasing ability to function Status of Goals:: Objective 1- mostly complete with ongoing work encouraged. Client can identify her warning signs and triggers for panic and anxiety and client has been practicing healthy coping skills on a daily basis. Client has not had a panic attack in over two weeks. Client?s DSM-5 scores for anxiety have decreased by 41% but her scores are still in the moderate-severe range and can be further decreased. Client reports feeling more confident about returning to work part-time. Objective 2- complete with ongoing work encouraged. Client can identify her cognitive distortions that lead to rumination and she has been actively practicing thought challenging skills. Client reports she still catastrophizes at times, but this has reduced in duration. Team Recommendations:: Client encouraged to continue working on this treatment goal to reinforce healthy coping skills and to further decrease anxiety symptoms which will help client return to work. Client and therapist currently working on mindfulness, boundary setting, thought challenging, and self-compassion. Problem #2 Problem Name:: Client will reduce depressive symptoms, lack of motivation, and sadness Status of Goals:: Objective 1- complete with ongoing work encouraged. Client is able to more easily recognize negative self-talk statements and has been practicing journaling her positive qualities. Client has also been practicing thought challenging on a daily basis. Objective 2- complete with ongoing work encouraged to further reduce symptoms. Client?s DSM-5 scores for depression decreased by 50% since admission and she no longer feels hopeless or down most days. Client has been more active AEB spending time with friends, getting out in nature, and practicing positive self-talk. Team Recommendations:: Client encouraged to continue working on this treatment goal to reinforce healthy coping skills and to further decrease depressive symptoms. Client and therapist currently working on realistic expectations, thought challenging, and positive self-talk.
--- NOTE | 2020-05-22 12:41 | PCM.BH.PN ---
Progress Note Progress Note: History of Present Illness/Interim History: [] The patient is seen in follow-up at the [facility] behavioral health IOP program. The patient is a 20-year-old single female who I last saw 3 weeks ago. At that time no medication changes were made. She states that she has had some nausea for about 2 weeks now and feels at times sick to her stomach. I discussed with the patient that this is not likely to be due to her medications because her medication doses have not been changed for over 4 weeks now. She states that her mood is better and is good currently. Her anxiety is much improved and she has not had a panic attack since over 3 weeks ago. She feels she is learning a lot in the IOP program. She denies suicidal or homicidal ideation. She denies hallucinations, delusions or any symptoms of abbie. She denies any thoughts of . Current Psychiatric Medications: [] Lamictal 75 mg p.o. daily (x4 weeks now); Wellbutrin XL 300 mg p.o. every morning Mental Status Examination: [] Patient is a 20-year-old single female who appears normal for stated age and is seen by telehealth. She is casually dressed and groomed with good hygiene. She is cooperative and pleasant during the interview. She has no psychomotor agitation or retardation. Her eye contact is good and her speech is normal rate and rhythm and fluent with no pressure. Mood is euthymic. Affect is full. Thought process is goal-directed and organized. Thought content: No evidence of suicidal or homicidal ideation. No evidence of passive thoughts. No evidence of hallucinations or delusions. Judgment is intact. Insight: Good. Impulsivity: Low Diagnoses: [] [place] I: []. Panic disorder; generalized anxiety disorder; major depressive disorder recurrent moderate; history of PTSD [place] II: [] Deferred [place] III: [] Irregular menses [place] IV:[]] School and work issues Plan: [] The patient will continue the IOP program as the structure, support, education, individual and group therapy are hopefully preventing worsening of the patient's symptoms. She felt safe during the interview and if at any time she does not feel safe she will let us know or go to the emergency room. The risks, options, possible side effects and complications of the medication were discussed with the patient and she understands and accepts these. She did have dizziness when she was on 100 mg of Lamictal but the dizziness resolved when we dropped it to 75 mg. After long discussion with the patient we decided she would give it a few more weeks and see if the symptoms resolve as the symptoms could be due to the over 90 ?F temperature is we have had outside all week. She is encouraged to drink enough fluids. I will see the patient in 1 to 2 weeks and at that time if she her symptoms have of nausea have not improved I will possibly decrease the Lamictal back down to 50 mg. Her mother tolerates Lamictal well. If her symptoms worsen she will call to tell us her contact her primary care doctor or go to the emergency room.
--- NOTE | 2020-05-24 09:00 | BH.SGPN.GN ---
Behaviors/Verbalizations/Mental Status: []Client alert and oriented, neatly dressed and groomed. Eye contact good. Motor activity appropriate. Speech within normal limits. Affect unable to gather due to wearing a mask for COVID-19 protocol, mood euthymic. Thoughts linear, logical, no signs of hallucinations or delusions. Reviewed client?s symptom tracker, no risk for suicidal ideation, plan, or intent as of 05/24/20. Client Response/Progress/Benefit: []Client responded well to session, attentive and providing supportive feedback to peers. Client reports feeling calm today. Client shared many mental health wins today including going fishing with a friend, reaching out to her boss and not catastrophizing when boss did not respond, and practicing coping skills. Client reported her game plan has been a lot of thought challenging. Client reported she likes to sit outside and practice coping skills client learns in IOP. Client's stressor today is that one of her cats is getting fixed and client shared getting her pets to the vet can be a process, but client shared belief this stress is manageable. Appeared to benefit from reflecting on her generalization of healthy coping skills. Will continue IOP tx to further decrease anxiety, reduce negative thinking, and improve daily functioning. Narrative Note: []
--- NOTE | 2020-05-24 10:03 | BH.SGPN.GN ---
Behaviors/Verbalizations/Mental Status: []Client alert and oriented, casual dress, hygiene tended to. Eye contact fair. Motor activity appropriate. Speech within normal limits. Affect could not be assessed due to pt wearing a face mask as precaution against coronavirus. mood euthymic. Thoughts linear, logical, no signs of hallucinations or delusions. Client Response/Progress/Benefit: []Pt engaged in session AEB pt providing input throughout discussion, taking notes and listening attentively to peers. When processing quote pt stated without boundaries everyone can walk all over you. Pt reported when setting boundaries you are setting yourself up for success because putting what you need first. Pt shared she set a boundary with her mom about what they talk to each other about which pt stated has improved their communication. Pt assisted group with identifying that boundaries can impact the following: how much someone takes advantage of you, either bring people closer or push people away, keep us safe, reduce the risk of peer pressure, impact positive or negative self-worth. Pt seemed to benefit from increased awareness of how poor boundaries can negatively impact mental health. Progress noted in pt?s increased awareness of importance of boundaries. Will continue IOP tx to continue use of healthy coping, challenge distorted thoughts, and prevent decompensation. Narrative Note: []
--- NOTE | 2020-05-24 11:05 | BH.SGPN.GN ---
Behaviors/Verbalizations/Mental Status: [] Client alert and oriented, casually dressed. Eye contact good. Motor activity appropriate. Speech within normal limits. Affect congruent, mood anxious and euthymic. Thoughts linear, logical, no signs of hallucinations or delusions. Client Response/Progress/Benefit: [] Client responded well to session, actively contributing to discussion and able to make connections during the activity. Client engaged in the boundary self-assessment activity and processing discussion. Indicated relating to the assessment question ?It is my duty to hold my supports together and solve other?s problems?, noting she often struggles with feeling this way. Client attentive during psychoeducation on the boundary setting styles and shared belief she uses porous and flexible boundary setting styles. Client stated she starts off as flexible with her boundaries but will sometimes become anxious or think she sounds stupid which results in trying to explain herself or oversharing. Reported wanting to work on challenging herself to sit with the uncomfortable went tempted to engage in oversharing. Progress noted in client?s report of reduced anxiety sx and improved skill application. Will continue IOP tx to promote use of healthy coping skills, further decrease symptoms, and improve functioning. Narrative Note: []
--- NOTE | 2020-05-28 15:24 | BH.MDN_ITS ---
Multi-Disciplinary Note - Note Family Time Started:: 14:00 Date: 05/28/20 Purpose of session/treatment goals addressed:: The purpose of this session was to engage client's mother in client's treatment by addressing symptoms, warning signs, and strategies to provide support. Another purpose was to improve communication and set boundaries. Eye Contact:: Good Motor Activity:: Appropriate Appearance:: Casual Speech:: Appropriate Mood:: Euthymic, Anxious Affect:: Congruent Thoughts:: Linear, Logical, No evidence of hallucinations/delusions noted Staff Interventions:: Therapist used open-ended questions and active listening to gather information on client's, and her mother?s, expectations for the session. Therapist had client and her mother read through a handout on ways to help loved ones with anxiety and processed it during session. Therapist enc ouraged open communication and provided clarification when necessary. Therapist provided psychoeducation on anxiety and cognitive distortions. Therapist advocated for client?s treatment needs and empowered client to share what support client will help client. Therapist assisted client and her mother in setting realistic goals and boundaries. Client Response:: Client and her mother responded well to session, open to meeting with therapist. Client's expectations for session were to increase communication and mental health support. Client's mother also wanted to accomplish these goals during session. Client's mother shared she has seen progress in client, especially in client's reduction in intensity of symptoms. Client demonstrated empowerment as she discussed her views on progress with mother. Client and her mother were open to reading and processing the handout on ways to help a loved one with anxiety. While reading through the handout, client and her mother identified strengths they already possess in support giving as well as ways they can improve. Strengths identified included: recognizing worst case scenario and identifying strategies, being realistic with each other, being a listening ear, and being mindful. Client advocated for herself and shared ways her mother could better support client's mental health. Client and mother identified areas of growth to be: not personalizing, less catastrophizing, practicing mindfulness, communicating when they need a break, and helping one another get off of negative autopilot. Client and her mother were both receptive to discussion and ways to better support one another. Discussed the importance of self-care for client and her mother. Risks/Concerns:: Client denies any suicidal ideations, plan, or intent as of 05/28/20. Progress Toward Goals/Plan:: Client has been responding well to treatment and continues to demonstrate progress towards her treatment goals. Client?s DSM-5 scores have decreased by 50% since admission and client reports improvement in functioning. Client has been using healthy coping skills and client?s mother also reports a change in client?s mood and mental health. Client continues to struggle with negative thinking that reinforces anxiety related to work and school. Client will continue IOP tx to promote use of healthy coping skills, improve work-related functioning, and reduce anxiety symptoms. Time Stopped:: 15:05
--- NOTE | 2020-05-30 09:05 | BH.SGPN.GN ---
Behaviors/Verbalizations/Mental Status: [] Eye contact is good. Motor activity is appropriate. Appearance is dischevled. Speech is Appropriate. Mood is anxious. Affect is congruent. Thoughts are linear and logical. No evidence of psychosis. Reviewed daily check in sheet and no reports of suicidal ideations or intent. Client Response/Progress/Benefit: [] Pt participated at times during group discussions. Emotion for today is stressed. Discussed several recent stressors and how they are impacting her. Insight that these stressors are impacting her mental health and reports that she is attempting to minimize their impact through coping skills (self-care, opposite-action, and thought-challenging). Progress noted per pt report. Benefited from group support, encouragement, and feedback. Will continue in IOP to maintain safety, prevent decompensation, and improve functioning. Narrative Note: [] This psychotherapy group was provided via telehealth using two-way, real-time interactive telecommunication technology between the patients and the provider.?The interactive telecommunication technology included audio and video.? ?The patient was offered telemedicine as an option for care delivery during the COVID-19 pandemic and consented to this option. ?Patient location: [place] ?Provider located at [facility]
--- NOTE | 2020-05-30 10:12 | BH.SGPN.GN ---
This psychotherapy group was provided via telehealth using two-way, real-time interactive telecommunication technology between the patients and the provider. The interactive telecommunication technology included audio and video. The patient was offered telemedicine as an option for care delivery during the COVID-19 pandemic and consented to this option. Patient location: [place] Provider located at [facility] Behaviors/Verbalizations/Mental Status: []Client alert and oriented, casually dressed. Eye contact good. Motor activity appropriate. Speech within normal limits. Affect congruent, though difficult to assess as pt attending via telehealth option. mood euthymic, anxious. Thoughts linear, logical, no signs of hallucinations or delusions. Client Response/Progress/Benefit: []Client engaged throughout session AEB providing input to discussion and taking notes throughout. Connected with discussion on how coping with external crises by using unhealthy coping skills could result in a personal crisis. Client noted that radical acceptance is fleming to learning to cope with potential crisis situations. Group reported that it is important to have awareness of warning signs which can prevent reaching crisis point. Group identified warning signs for crisis and client completed the personal warning signs worksheet. Client identified personal crisis warning signs to include: increase or decrease of appetite, loss of motivation, and negative thinking. Client went on to explain her warning signs often differ depending on whether she is anxious or depressed. Benefited by increasing awareness of crisis and personal warning signs. Progress noted in client self-report of improved overall mood and increased ability to manage daily stresors. Will continue IOP tx to increase healthy coping, improve mood stability and prevent decompensation. Narrative Note: []
--- NOTE | 2020-05-30 11:11 | BH.SGPN.GN ---
This psychotherapy group was provided via telehealth using two-way, real-time interactive telecommunication technology between the patients and the provider.?The interactive telecommunication technology included audio and video.? ?The patient was offered telemedicine as an option for care delivery during the COVID-19 pandemic and consented to this option. ?Patient location: [place] ?Provider located at [facility] Behaviors/Verbalizations/Mental Status: []Client alert and oriented, casually dressed and groomed. Eye contact fair. Motor activity appropriate. Speech within normal limits. Affect congruent. Mood euthymic. Thoughts linear, logical, no signs of hallucinations or delusions. Client Response/Progress/Benefit: []Client responded well to session as evidenced by client listening attentively to others and providing input throughout session. Client identified her warning signs for crisis and gained further awareness of earliest warning signs. Client used the warning signs: loss of motivation, negative thinking, and change in appetite to create her crisis plan. Client created a crisis action plan to help client better manage warning signs for crisis. Client?s plan included: opposite action, creating small goals, engaging in hobbies, positive self-talk, identifying her strengths, drinking more water, and using healthy distractions. Client also recognizes that she can ask outside support for help. Client appeared to benefit from creating a crisis action plan and increasing self-awareness. Client to continue IOP tx to promote use of healthy coping skills, further improve mood stability, and increase work-related functioning. Narrative Note: []
--- NOTE | 2020-05-31 09:01 | BH.SGPN.GN ---
Behaviors/Verbalizations/Mental Status: []Client alert and oriented, casual dress. Eye contact good. Motor activity appropriate. Speech within normal limits. Mood euthymic, anxious. Affect congruent, though difficult to gather due to client wearing mask per [address] guidelines. Thoughts linear, logical, no signs of hallucinations or delusions. Reviewed client?s symptom tracker, no signs of suicidal ideation, plan, or intent as of today. Client Response/Progress/Benefit: []Pt responded well to session, actively engaged throughout and providing feedback as well as input throughout. Reports feeling excited but kareem anxious today which she attributes to being able to identify areas of progress in her ability to manage multiple stressors during the week but is still struggling with some associated anxiety. Did to identify current mental health positives which include making time for self-care despite several unexpected changes in plans, as well as applying thought challenge skills when tempted to ruminate on a stressor. Expressed feeling more confident and motivated to continue working on treatment goals as a result. Shared current stressor includes having to reschedule the vet appointment for her cat which had been a source of stress earlier in the week. Pt was receptive of and appeared to benefit from support provided by the group. Progress noted in pt self-report of improved utilization of thought challenge and mindfulness skills and increased ability to manage anxiety related symptoms. Will continue IOP tx to increase coping skills which promote mood stability, improve consistency of skill application, and maintain gains made. Narrative Note: []
--- NOTE | 2020-05-31 10:15 | BH.SGPN.GN ---
Behaviors/Verbalizations/Mental Status: []Client alert and oriented, neatly dressed and groomed. Eye contact good. Motor activity appropriate. Speech within normal limits. Affect unable to gather due to wearing a mask for COVID-19 protocol, mood euthymic and anxious. Thoughts linear, logical, no signs of hallucinations or delusions. Client Response/Progress/Benefit: []Client active participant in group AEB client contributing thoughts and ideas throughout session and listening attentively to peers. Client reported the quote ?really resonates with me? and shared a personal example. Group worked together to identify barriers to making changes or taking action in their lives which included: habits, negative mindset, fear of failure, negative thinking, lack of resources, and toxic people. Group also identified that even though there are barriers to change, change is important in order to improve mental health. Client identified areas she would like to take back control over in her life to include: unrealistic expectations, fear of failure, and lack of self-confidence. Client shared these things have prevented client from having confidence about her future and second guess her career. Benefited from group through awareness of personal areas she wants to improve and benefits to taking action towards mental wellness. Will continue IOP tx to promote gains, further improve work-related functioning, and increase confidence. Narrative Note: []
--- NOTE | 2020-06-03 09:01 | BH.SGPN.GN ---
Behaviors/Verbalizations/Mental Status: []Client alert and oriented, casual dress, hygiene tended to. Eye contact good. Motor activity appropriate. Speech within normal limits. Affect congruent, mood depressed, anxious. Thoughts linear, logical, no signs of hallucinations or delusions. Reviewed client?s symptom tracker, pt reports suicidal thoughts at a rate of 2/5, though denies plan or intention to date. Reports willingness to meet with individual therapist following IOP group for further assessment. Client Response/Progress/Benefit: []Pt was an active participant in group discussion, providing input and feedback throughout, as well as openly processing thoughts and emotions with the group. Pt stated feeling ?anxious and disappointed? today as she had a difficult day yesterday. Indicated that multiple stressors had been impacting her overall mood throughout the day and that upon being reminded that school is going to start again soon, she began to experience increased panic. Pt reports attempting to use several skills to help manage her anxiety and prevent further escalation. Pt expressed setting a boundary with her mother about not being able to discuss returning to school in that moment and then taking the initiative to remove herself from the environment and go outside. Pt able to identify these as mental health wins and with encouragement from the group was able to identify that continuing to try in the face of potential setbacks/stressors indicates ongoing progress. Pt seemed to benefit from support from peers and normalizing her current difficulties with continued maintenance. Pt recommended to continue IOP level of care to increase healthy coping, challenge negative thoughts, and prevent decompensation. Narrative Note: []
--- NOTE | 2020-06-03 10:20 | BH.SGPN.GN ---
Behaviors/Verbalizations/Mental Status: []Client alert and oriented, casual dress, hygiene tended to. Eye contact fair. Motor activity appropriate. Speech within normal limits. Affect could not be assessed due to pt wearing a face mask as precaution against coronavirus. mood anxious. Thoughts linear and logical. No evidence of delusions or hallucinations. Client Response/Progress/Benefit: [] Pt responded well to session, attentive and engaged throughout discussion and activity. Pt appeared to connect with the topic of fear of failure. Pt connected with the concept that mindset is powerful in determining how a person moves forward after failing. Pt stated although failure initially is difficult to overcome, she recognizes she can learn what doesn't work from past failures. Pt could connect with unrealistic expectations as being a form of self-sabotage that leads to failure. Engaged and positive during the group activity. Pt appeared to benefit from gaining awareness of the impact of fear of failure can have on one?s mental health and wellbeing. Progress noted in pt improving with setting more realistic expectations for self. Will continue IOP tx to continue use of healthy coping skills, maintain gains, and prevent decompensation. Narrative Note: []
--- NOTE | 2020-06-03 11:20 | BH.SGPN.GN ---
Behaviors/Verbalizations/Mental Status: []Client alert and oriented, casual appearance. Eye contact good. Motor activity appropriate. Speech within normal limits. Affect unable to gather due to wearing a mask for COVID-19 protocol, mood anxious and frustrated. Thoughts linear, logical, no signs of hallucinations or delusions. Client Response/Progress/Benefit: []Client responded well to session, participating during the group activity and willing to complete the worksheet. Client completed the fear of failure worksheet and reported that fear of failure has kept her from trusting herself, trying new things, and being social. Client able to identify barriers that reinforce her fear of failure which included: double standards of self, other?s expectations and client?s perception of expectations, and fear of not coping with negative consequences. Client attentive during discussion of the different strategies to help overcome fear of failure. Group identified strategies such as: self-compassion, opposite action, setting boundaries with self and others, thought challenging, and reaching out to supports. Client appeared to benefit from learning ways to overcome fear of failure. Will continue IOP tx to increase healthy coping, challenge distorted thoughts and promote work-related functioning. Narrative Note: []
--- NOTE | 2020-06-03 13:24 | BH.MDN_ITS ---
Multi-Disciplinary Note - Note 45-min Individual Time Started:: 12:20 Date: 06/03/20 Purpose of session/treatment goals addressed:: The purpose of this session was to address current mood state and review techniques to help client manage anxiety and challenge distortions. Other topics included: boundary setting, communication, and self-care. Eye Contact:: Good Motor Activity:: Appropriate Appearance:: Casual Speech:: Appropriate Mood:: Anxious, Irritable Affect:: Congruent Thoughts:: Linear, Logical, No evidence of hallucinations/delusions noted Staff Interventions:: Therapist used active listening and open-ended questions to explore client's current symptoms, triggers, and stressors. Therapist helped client process a recent trigger which led to a panic attack yesterday. Therapist gently challenged client's distorted thought patterns and assisted client in reframing negative thoughts reinforcing frustration with progress. Therapist taught client about dialectical thinking and how client can apply this skill to help practice self-compassion. Therapist and client discussed the benefits of practicing self-care tonight. Therapist gave client homework to practice self- compassion and practice self-care. Client Response:: Client responded well to session, open to meeting with therapist. Client shared she is feeling frustrated today due to a recent panic attack. Client reported I'm just angry that I have to keep dealing with this...I hate that I have to keep working at it. Client vented her frustrations for a few minutes and then was receptive to challenging her negative thinking. Client recognized that her mood today was impacted by her negative thoughts regarding progress. Client able to challenge these thoughts by reminding herself that she has been able to control her anxiety more since starting IOP. Client provided several examples highlighting her ability to reduce anxiety in the moment and not catastrophize. Client reports feeling worried that she will never be able to take a break from working on her mental health. Discussed how this is unrealistic and processed the difference between self-care breaks and self-sabotage. Client identified self-care to be taking a night off, not being p roductive for one day, and not practicing thought challenging for a day. Client identified self-sabotage to be taking a week off, not being productive for multiple days, avoiding tasks, and not using healthy coping skills to bounce back from a tough day. Client gained awareness of her potholes or things that could keep client stuck. Receptive to practicing self-care today and reported finding dialectical thinking to be helpful in reframing her negative thoughts. Risks/Concerns:: Client denies any suicidal ideations, plan, or intent as of 06/03/20. Future oriented and multiple protective factors. Progress Toward Goals/Plan:: Client has been responding well to treatment and continues to demonstrate progress towards her treatment goals. However, client shared she had a panic attack this weekend, for the first time in almost four weeks, caused by multiple stressors. Client shared this then triggered negative thinking and frustration with progress. Client acknowledges that despite having a panic attack yesterday, she still has made significant strides in managing her anxiety. Client has been using healthy coping skills and has been able to bounce back more quickly after stressful moments. Client continues to struggle with negative thinking that reinforces anxiety related to work and school. Client will continue IOP tx to promote use of healthy coping skills, improve work- related functioning, and reduce anxiety symptoms. Time Stopped:: 13:00
--- NOTE | 2020-06-04 09:05 | BH.SGPN.GN ---
Behaviors/Verbalizations/Mental Status: [] Eye contact is good. Motor activity is appropriate. Appearance is disheveled. Speech is Appropriate. Mood is depressed. Affect is flat. Thoughts are linear and logical. No evidence of psychosis. Reviewed daily check in sheet and no reports of suicidal ideations or intent. Client Response/Progress/Benefit: [] Pt participated at times during the group discussion. Emotion for today is tired. Shared recent stressors which involves her home life and anxiety related to college starting up on 07/03/20. She feels confident and prepared regarding managing her emotions. [place] overwhelmed yesterday however was able to identify and utilized coping skills including self-care which prevent her stress from getting too overwhelming. Progress noted. Insight and utilization of skills. Benefited from group support, encouragement, and feedback. Will continue in IOP to prevent decompensation, increase coping skills, and improve daily functioning. Narrative Note: []
--- NOTE | 2020-06-04 10:16 | BH.SGPN.GN ---
Behaviors/Verbalizations/Mental Status: []Client alert and oriented, casual dress, hygiene tended to. Eye contact good. Motor activity appropriate. Speech within normal limits. Affect congruent, mood euthymic. Thoughts linear, logical, no signs of hallucinations or delusions. Client Response/Progress/Benefit: []Engaged participant AEB pt providing input throughout session, listening attentively to others and taking notes. When discussing quote pt stated at first she didn't want to come to [facility] to get help but now can see that IOP has been a great opportunity for her to get better and have personal growth. Engaged during psychoeducation portion reviewing fixed mindset. Pt worked with group to identify how a fixed mindset can impact our mental health which included: decreased motivation, giving up when faced with a setback, not asking for help, low self-esteem, and staying stuck. Seemed to connect with others when discussing example fixed mindset thoughts. Pt identified one fixed thought she has is, What if it doesn't get any better?. Pt did well to recognize that this fixed thought leads to increased doubt in her decision, decreased motivation and not wanting to make changes. Seemed to benefit from group by increasing awareness of how one's mindset impacts mental health. Progress noted with pt continuing to demonstrate increased self-awareness of negative and distorted thoughts with improved ability to challenge thoughts. Pt to continue IOP level of care to continue use of healthy coping skills, maintain gains, and prevent decompensation. Narrative Note: []
--- NOTE | 2020-06-04 11:16 | BH.SGPN.GN ---
Behaviors/Verbalizations/Mental Status: [] Client alert and oriented, casually dressed and groomed. Eye contact good. Motor activity appropriate. Speech within normal limits. Affect unable to gather due to client wearing a mask as part of COVID-19 protocol. mood anxious and euthymic. Thoughts linear, logical, no signs of hallucinations or delusions. Client Response/Progress/Benefit: [] Client actively listening during discussion and taking notes throughout. Client did well to work with group on identifying characteristics and benefits of adopting a growth mindset, indicating that this would improve overall willingness to try and self-esteem. Client taking notes and providing input during example activity in which participants helped reframe example fixed thoughts into growth mindset thoughts. Client worked to apply skills learned to reframe her own personal fixed thoughts. Reframed thought of ?This is never going to work? with growth mindset thought of ?I can develop the skills and gain the knowledge to make this work?. Noted that this would aid in improving ability to better manage potential setbacks. Benefitted from discussing benefits of growth mindset and brainstorming strategies for prompting growth-mindset. Client progress noted in improved thought challenging and anxiety management. Will continue IOP tx to continue to promote active thought challenging and skill application as well as maintain gains made.
--- NOTE | 2020-06-06 09:05 | BH.SGPN.GN ---
Behaviors/Verbalizations/Mental Status: [] Eye contact is good. Motor activity is appropriate. Appearance is casual. Speech is Appropriate. Mood is euthymic. Affect is full. Thoughts are linear and logical. No evidence of psychosis. Reviewed daily check in sheet and no reports of suicidal ideations or intent. Client Response/Progress/Benefit: [] Pt was an active participant in group discussion. Emotion for today is calm. She talked about some concentration and focus issues which she has noticed since her depressive symptoms increased. Trouble during conversations often finding herself forgetting what others are saying. Group provided feedback and discussed how they noticed the same thing with increased anxiety and depression. Provided support and some feedback on ways to increase focus during conversations. Progress noted per pt report. Utilizing skills feels more confident and stable than in the past. Will continue in IOP to maintain safety, prevent decompensation, and show consistent stable mood. Narrative Note: []
--- NOTE | 2020-06-06 11:20 | BH.SGPN.GN ---
Behaviors/Verbalizations/Mental Status: []Client alert and oriented, casually dressed and grooming appropriate. Eye contact good. Motor activity appropriate. Speech within normal limits. Affect congruent though difficult to determine as client wearing a mask per COVID-19 protocol, mood euthymic, anxious. Thoughts linear, logical, no signs of hallucinations or delusions. Client Response/Progress/Benefit: []Client engaged in session AEB contributing to discussion and taking notes throughout. Client participated in the continued discussion on what prevents moving on to the ?next chapter? in our life and the importance of problem-solving solutions to address identified barriers. Identifying denial as a barrier. Worked with peers to brainstorm the components of A,B,C,D,E problem solving method and various strategies for promoting follow-through in each stage. Client identified difficulty coping with anxiety ?in the moment? as a barrier preventing her from moving to the next chapter in mental health recovery. Shared that by problem-solving this barrier she will feel more confident and capable of managing anxiety sx in order to continue to make progress. Identified creating a list of local resources as a first step she can take in the problem-solving process. Appeared to benefit from learning about problem solving method and practice applying this to personal barriers identified. Progress noted in self-report of increased ability to apply skills prior to reaching crisis point. Continues to struggle with application of preventative coping however. Will continue IOP tx to prevent decompensation, maintain gains, and continue to improve anxiety management. Narrative Note: []
--- NOTE | 2020-06-11 09:00 | BH.SGPN.GN ---
Behaviors/Verbalizations/Mental Status: []Client alert and oriented, neatly dressed and groomed. Eye contact good. Motor activity appropriate. Speech within normal limits. Affect unable to gather due to wearing a mask for COVID-19 protocol, mood euthymic and a little anxious. Thoughts linear, logical, no signs of hallucinations or delusions. Reviewed client?s symptom tracker, no risk for suicidal ideation, plan, or intent as of 06/11/20. Client Response/Progress/Benefit: []Client responded well to session, providing supportive feedback and reflecting on progress. Client reports feeling calm but a little on edge this morning. Client reported her mood has been consistently better and her mindset has been more positive. However, client feels a little anxious about this being her last week in IOP. Assistant News Director helped client explore positive forces that can help client maintain progress. Client identify her mental health wins today which included: using opposite action, reaching out to her therapist, and having a good conversation with her mother. Client noted progress in thought challenging and use of self-compassion since starting IOP. Appeared to benefit from connecting with others and reflecting on application of coping skills. Will continue IOP tx for one more day to reinforce healthy coping skills and provide closure to treatment. Narrative Note: []
--- NOTE | 2020-06-11 10:12 | BH.SGPN.GN ---
Behaviors/Verbalizations/Mental Status: []Client alert and oriented, casually dressed and groomed. Eye contact good. Motor activity appropriate. Speech within normal limits. Affect unable to gather due to wearing a mask for COVID-19 protocol, mood anxious and euthymic. Thoughts linear, logical, no signs of hallucinations or delusions. Client Response/Progress/Benefit: []Client was an engaged participant throughout group session AEB client contributing to discussion of healthy versus unhealthy coping skills and taking notes throughout. Client reported ?it?s all about how we respond to stress?. Group identified barriers to using healthy coping skills which included; habit, not wanting to put in the effort, lack of awareness, negative attitude, and toxic environments. Client agreed that learning healthy coping skills takes time and effort and discussed how she had to practice patience with herself as she learned to implement healthier coping skills throughout the tx process. She participated in the challenge activity and agreed with the group on the importance of creating a strong foundation of healthy coping skills in order to manage life stressors. Group discussed various skills that can aid in facilitating better application of health coping skills which included: accountability, positive self-talk, visual reminders, keeping in mind the consequences of not following through, and creating a routine. Client reported connecting most with establishing a consistent routine. Client seemed to benefit from increased awareness of importance of increasing healthy coping skills and consequences of utilizing unhealthy coping skills. Client will continue IOP tx to promote gains, further improve healthy anxiety management, and continue to promote change behaviors. Narrative Note: []
--- NOTE | 2020-06-11 14:17 | BH.MDN ---
Multi-Disciplinary Note - Note 30-min Individual Time Started:: 11:30 Date: 06/11/20 Purpose of session/treatment goals addressed:: The purpose of this session was to review client's progress and review strategies that will promote mood stability and gains made in IOP. Another goal was to discuss discharge recommendations and process any current stressors. Eye Contact:: Good Motor Activity:: Appropriate Appearance:: Casual Speech:: Appropriate Mood:: Euthymic, Anxious Affect:: Congruent Thoughts:: Linear, Logical, No evidence of hallucinations/delusions noted Staff Interventions:: Therapist used open-ended questions to explore client's thoughts on personal progress. Therapist also provided emotional support and helped client problem-solve current stressors. Therapist reviewed supports and coping skills with client to promote gains and prevent setbacks. Therapist discussed aftercare plan with client and used strengths-perspective to empower client on the goals client has accomplished. Therapist discussed the benefits of ongoing maintenance and use of daily coping skills. Therapist gave client a quote collage for closure. Client Response:: Client responded well to session, open to meeting with therapist. Client reports feeling somewhat anxious about leaving, but stated she has more confidence in her skills now. Client also acknowledges that she has external supports as well who can help client including IOP aftercare, outpatient counseling, and her family. Client reflected on her progress during IOP and reported that she has noticed increased self-compassion, increased self-love and confidence, consistent use of healthy coping skills, and reduced intensity of anxiety symptoms. Client self-identified healthy coping skills that have helped client which included: opposite action, grounding, positive self-talk, thought challenging, self-care, taking breaks, setting realistic expectations, and goal setting. Client expressed gratitude for the IOP program and stated, ?you guys saved my life.? Client plans to follow up with [facility] aftercare and will see her outpatient therapist starting the middle of June. Risks/Concerns:: Client denies any suicidal ideations, plan, or intent as of 06/11/20. Progress Toward Goals/Plan:: Client has responded well to treatment and has made great progress while in IOP. Client self-reports overall improved mood, reduced anxiety, only one panic attack in 7 weeks, and improved ability to manage daily stressors. Client reports increased ability to manage her emotions and challenge negative thoughts and improved self-compassion. Client still endorses mild anxiety, but she reports increased confidence to manage these symptoms and has hope for the future. Will discharge from [facility] on 06/13/20. Time Stopped:: 11:57
--- NOTE | 2020-06-12 16:28 | BH.AFTERPLAN ---
Aftercare Plan - Demographics Treatment End Date:: 06/13/20 Psychiatrist:: Soheila Juares Psychiatrist Office #:: [phone] [facility] Therapist:: Jenae Combs Therapist Phone #:: [phone] - Medications Home Medications: Home Medications Bupropion HCl 300 mg PO DAILY 04/24/20 Fluticasone 0.05% [Flonase Nasal [place]] 1 spray NASAL DAILY PRN 04/24/20 hydrOXYzine tablet [Atarax tablet] 10 mg PO DAILY PRN 04/24/20 Lamotrigine [Lamictal] 25 mg PO DAILY 30 Days #90 tab 05/01/20 - Plan Details Progress/Aftercare Plan Details:: Keturah has made significant strides since starting IOP as shown by her improved mood, increased confidence in her skills, and increased ability to cope with daily stressors. When Keturah started IOP she was experiencing significant anxiety and daily panic attacks. Keturah was struggling with depressive thoughts, not functioning at her baseline, and managing her negative thinking. Now, Keturah can catch and challenge distortions that reinforced anxiety and hopelessness, use healthy coping skills more easily, and she feels more confident in her abilities. Keturah self-reports progress in the following areas: learning and applying self-compassion, consistent use of thought challenging, recognition of her strengths, less catastrophizing, better boundaries and communication, consistent application of coping skills, and increased confidence. Keturah also reports less smoking and has tolerated her medications well. Keturah was highly active in both group and individual therapy sessions. Keturah contributed to group discussions, offered emotional support to peers, and consistently followed through with her GAPs. In individual sessions, Keturah was receptive to feedback, consistent with homework, and willing to push herself despite anxiety. Keturah?s high motivation, willingness to be uncomfortable, and joyful personality were likely the reason for her significant progress. Keturah plans to attend [facility] aftercare group which starts for Keturah on 06/20/20. Keturah also plans to follow up with her outpatient psychiatrist and therapist for ongoing mental health services. Strategies for Success:: 1. Opposite action! Continue to break that cycle of anxiety by doing the anxious and hard thing. 2. Thought challenging! Remember to challenge distortions and reframe your thinking! 3. self-care! You deserve to take time for you, which includes taking breaks and having down time that?s not 100% productive 4. Reach out to supports! You've been doing great with this, just remember to keep it up! Also remember it?s okay to verbalize your needs to your sister and best friend. 5. Challenge your perspective and practice self-compassion. Ask yourself if your expectations are truly realistic. 6. Get out and do some grounding! Get in nature and practice that mindfulness. 7. Set small, realistic goals. 8. Practice positive self-talk and keep track of your strengths. 9. Remember progress isn?t linear! You may have a setback or bump in the road, but that doesn?t mean you?ve lost all progress. 10. Give yourself some credit! You worked your ass off! - Appointments Appointments/Referrals to Other Services:: 1. Aftercare for IOP starting on 06/20/20. 2. Meeting with me individually 06/25/20 at 2:30pm. 3. Follow up with Nereyda in [place] middle of June. 4. Follow up with outpatient psychiatry. Last appointment was 06/10/20.
--- NOTE | 2020-06-13 10:15 | BH.SGPN.GN ---
Behaviors/Verbalizations/Mental Status: []Client alert and oriented, neatly dressed and groomed. Eye contact good. Motor activity appropriate. Speech within normal limits. Affect unable to gather due to wearing a mask for COVID-19 protocol, mood euthymic. Thoughts linear, logical, no signs of hallucinations or delusions. Client Response/Progress/Benefit: []Client responded well to session, engaged and participating in group discussion. Client connected with the quote and discussed the difference between ruminating and reflecting for growth with group members. Client helped group identify the importance of change which included: growth, less anxiety and depression, confidence, and happiness. Group also identified barriers keeping clients from changing which included: fear of the unknown, fear of failure, comfort, and habit. Participated in the discussion of the different zones of change. Client reported she has struggled to get out of her comfort zone in the past which has hindered progress. Client described her comfort zone as ?complacency and not engaging in my hobbies.? Client stated she has pushed herself in IOP to get out of her comfort zone and into the learning zone which has helped client make progress. Appeared to benefit from gaining awareness of the benefits of change as well as the different zones of change. Will discharge from IOP today as client has made significant progress and no longer meets criteria for IOP level of care. Narrative Note: []
--- NOTE | 2020-06-13 11:13 | BH.SGPN.GN ---
Behaviors/Verbalizations/Mental Status: []Client alert and oriented, casually dressed and groomed. Eye contact good. Motor activity appropriate. Speech within normal limits. Affect unable to gather due to client wearing a mask per COVID-19 protocol, though appears congruent, mood euthymic. Thoughts linear, logical, no signs of hallucinations or delusions. Client Response/Progress/Benefit: []Pt was engaged throughout AEB contributing to discussion on ?comfort zone? of behavior and potential costs as well as benefits of remaining in the comfort zone. Pt reported that for her the comfort zone can lead to: reduced motivation, no longer engaging in activities she enjoys or completing responsibilities, as well as reduced self-care. Did well to work with the group on identifying potential mental health costs of remaining in one?s comfort zone which included: staying stuck, lack of personal growth, resistance to change, disengagement, and lack of motivation. Pt shared small steps she can take to step out of pt?s comfort zone as: Doing something outside of the house 1x/week, as well as journaling nightly. Pt contributed to discussion reviewing importance of accountability in following through with identified goals. Appeared to benefit from psychoeducation and working with the group to brainstorm strategies for improving personal accountability. Pt identified using the [employer] lo and writing out potential costs of not working on her goals as ways to promote personal accountability. Progress noted in self-report of improved mood as well as more active application of skills learned. Pt will discharge from [facility] tx on this date given gains made and is encouraged to follow-up with her outpatient providers as well as begin the aftercare program to continue to maintain progress. Narrative Note: []
--- NOTE | 2020-06-13 12:27 | BH.DS_ITS ---
Discharge Summary - Demographics Date of Admission:: 04/22/20 Discharge Date: 06/13/20 Presenting Problems at Admission:: Client is a 20-year-old female with a history of panic disorder, DEL, and PTSD. Client was referred to [facility] by her outpatient psychiatrist due to worsening depression, daily panic attacks, and fleeting suicidal ideations. Client reported an exacerbation of symptoms two weeks prior to starting IOP which client believed was triggered by medication changes and serotonin syndrome. At admission, client endorsed crying spells, increased sleep, low energy, low motivation, lack of concentration, hopelessness, and anhedonia. Client reported she had fleeting suicidal ideations prior to admission, describing them as intrusive thoughts. 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 Client endorsed severe anxiety with ruminations, avoidance behaviors, and daily panic attacks. Client reported her anxiety and depressive symptoms were impacting her daily functioning at home, school, and work. Discharge Diagnoses:: Panic disorder (F 41.0), generalized anxiety disorder, major depressive disorder recurrent moderate (F 33.1); history of PTSD Reason for Discharge:: Client has made significant progress towards her treatment goals AEB her reduction in DSM-5 symptom scores, self-report of increased ability to manage anxiety, and improved functioning. Client no longer meets criteria for [facility] level of care and will transition to outpatient counseling and [facility] aftercare. - Treatment Progress During Treatment & Response: Client responded well to treatment as shown by her overall consistent attendance, active participation, and significant reduction of overall DSM-5 symptoms. Client was an active participate who frequently contributed to discussions, gave insightful feedback, and took notes. Client often connected with peers and provided supportive statements and ideas to promote the use of coping skills. In individual sessions, client was receptive to learning new coping skills and was engaged in her treatment. Client followed through with her homework which often involved client facing anxiety-producing situations rather than continuing to avoid them. Per client?s report, she was consistently applying opposite action, self-care, boundary setting, and thought challenging. Client self-identified her progress as increase self-compassion, reduce panic and anxiety, increased consistency, and increase confidence in her abilities. At discharge, client?s DSM-5 symptom scores decreased by 59%. Client?s DSM-5 scores for depression decreased by 83%, anxiety decreased by 67%, and her suicidal ideations decreased by 100%. Additionally, at discharge client reported better outlook on life and optimism about work and school. Issues Still to be Addressed:: Client can continue to benefit from outpatient counseling and aftercare at [facility] to reinforce healthy coping skills and maintain progress. Client can also continue working on further improving boundaries, self-care, and use of thought challenging. Lastly, client would like to further cut back on using unhealthy coping skills to manage anxiety. Discharge Recommendations/Instructions:: Client is encouraged to follow up with her outpatient counseling, Nereyda, who does private practice near [facility]. Client plans to see this counselor when she returns to school the week of 07/01/20. Client will participate in [facility] aftercare starting on 06/20/20 and see this therapist on 06/25/20 to promote continuity of care while client waits to be seen by her outpatient therapist. Client will follow up with her outpatient psychiatrist at [facility]. Client?s last appointment was on 06/10/20. Discharge Handout: Complete Discharge Handout with client on aftercare options and continuity of care.
== END 2020-06-13 14:00 | disposition home or self-care (01) ==
LOC: BHIOP 09:00
PROVIDERS: Referring Provider Psychiatry & Neurology Psychiatry; Visit Provider Psychiatry & Neurology Psychiatry
DX: F41.0 Panic disorder [episodic paroxysmal anxiety] (principal); F41.1 Generalized anxiety disorder; F33.1 Major depressive disorder, recurrent, moderate; F43.10 Post-traumatic stress disorder, unspecified; N92.6 Irregular menstruation, unspecified; Z79.899 Other long term (current) drug therapy
CPT/HCPCS: 99214; H0035; H2012; H2020; 90832; 90834; 90847

== ENCOUNTER 2020-06-20 14:00 | Outpatient (RCR) | payer MEDICAID, SELFPAY ==
--- NOTE | 2020-06-20 02:01 | BH.SGPN.GN ---
Behaviors/Verbalizations/Mental Status: []Client alert and oriented, casual dress, hygiene tended to. Eye contact good. Motor activity appropriate. Speech within normal limits. Affect unable to assess due to client wearing mask per COVID-19 protocol, mood euthymic and anxious. Thoughts linear, logical, no signs of hallucinations or delusions. Client Response/Progress/Benefit: []Pt first day in aftercare program, reported she has been working on increasing her personal independence and that a personal victory had been being able to go on a solo camping trip to [facility] last week. Pt additionally shared that in the past week she has been working on developing a new self-care routine now that she no longer has the structure of the IOP program. Discussed that she does not currently have a consistent routine for promoting self-care and maintaining gains but would like to work on developing one. Pt worked cooperatively with group to identify benefits of having a daily routine which included: improving sense of purpose, increasing motivation, and improving follow through. Pt engaged in brainstorming of various daily routine ideas. Pt completed task of creating a daily morning routine and identifying a supportive mantra. Pt stated her morning routine will start by incorporating making the bed to her current routine each morning. Morning mantra identified as reminding herself ?If it were easy then everybody would do it? as a reminder to be more patient with herself when things get tough. Pt seemed to benefit from support from peers and learning about benefits of routine. Pt first day in aftercare program. Pt to continue aftercare group to improve consistent use of healthy coping, maintain gains, and prevent decompensation. Narrative Note: []
--- NOTE | 2020-06-20 16:37 | BH.MTP_ITS ---
Master Treatment Plan - Patient Information Program Physician:: Dr. Soheila Bailey Primary Therapist:: GABRIEL Mayes - Psychiatric Diagnoses Psychiatric Diagnoses:: Panic disorder (F 41.0), generalized anxiety disorder, major depressive disorder recurrent moderate (F 33.1); history of PTSD Diagnosis Code(s):: F 41.0, F 33.1 - Estimated LOS Estimated LOS (in weeks):: 12 Problem/Goal #1 - Problem/Goal #1 Stated Goal:: Pt will maintain or see a reduction in symptoms AEB pt?s score on the DSM 5 cross-cutting measure and improve pt?s daily functioning. - Objectives Objective #1 Stated Objective: Pt will continue to consistently apply health coping skills and strategies to maintain progress made through the IOP treatment program. Interventions: Through group therapy, pt will review warning signs/ triggers, as well as healthy coping skills used in the IOP treatment program to successfully maintain gains while transitioning into outpatient therapy. Discharge Criteria: Pt will have met this goal when pt?s score on the DSM 5 cross cutting measure has successfully remained stable or decreased over a period of 12 weeks and per pt?s report. Target Date: 09/12/20 Review Date: 07/18/20 Objective #2 Stated Objective: Pt will learn and successfully implement two to three maintenance strategies to prevent decompensation through the Aftercare group Interventions: Through groups therapy, pt will be provided with education on healthy maintains behaviors and relapse prevention techniques to prevent decomp ensation. Discharge Criteria: Pt will have met this goal when can report consistently using at least 2 maintenance skills to prevent decompensation. Target Date: 09/12/20 Review Date: 07/18/20
--- NOTE | 2020-06-27 14:00 | BH.SGPN.GN ---
Behaviors/Verbalizations/Mental Status: []Client alert and oriented, neatly dressed and groomed. Eye contact good. Motor activity appropriate. Speech within normal limits. Affect unable to gather due to wearing a mask for COVID-19 protocol, mood euthymic. Thoughts linear, logical, no signs of hallucinations or delusions. Client Response/Progress/Benefit: []Pt receptive of session, engaged throughout. Notes feeling ?excited? today as she has many positives since last session. Shared she is going camping with her mother jose, has been making her bed every morning, and has been practicing thought challenging. Pt also moves back to [place] for saperatec this weekend which client reports feeling excited for. Receptive of discussion on personal accountability and its importance in maintaining mental health stability. Pt worked cooperatively with group to identify benefits of maintaining personal accountability. Engaged in discussion on different accountability styles and brainstorming strategies for improving ability to hold themselves accountable. Pt identified that for homework she will write out her schedule and assignments for school. Pt reported she can hold herself accountable by setting reminders and making sure to share her accomplishment with the group next week. Pt seemed to benefit from support from peers and increasing understanding of personal accountability benefits and strategies. Progress noted in client?s application of coping skills and optimistic perspective on college. Will continue IOP aftercare group. Narrative Note: []
--- NOTE | 2020-07-04 14:00 | BH.SGPN.GN ---
Addendum entered and electronically signed by Luz Toney LSW 07/05/20 16:45: This psychotherapy group was provided via telehealth using two-way, real-time interactive telecommunication technology between the patients and the provider. The interactive telecommunication technology included audio and video. The patient was offered telemedicine as an option for care delivery during the COVID-19 pandemic and consented to this option. Patient location: [place] Provider located at [facility] Original Note: Behaviors/Verbalizations/Mental Status: []Client alert and oriented, casual dress, hygiene tended to. Eye contact good. Motor activity appropriate. Speech within normal limits. Affect unable to gather due to client attending via telehealth - though appearing congruent, mood euthymic. Thoughts linear, logical, no signs of hallucinations or delusions. Client Response/Progress/Benefit: []Client responded well to session, attentive and engaged throughout. Client reported following through with her game plan from last week which was to begin creating a more structured weekly schedule now that she has retuned to school. Client shared she also has been taking time to practice self-care by setting a boundary to stop working on schoolwork by 8pm and practicing daily grounding skills. Client reported the coping skills used this week to help accomplish goals were; thought challenging, deep breathing, and looking at the positives in a potential stressful situation. Client stated her stressor today is continuing to adjust to her new routine. Participated in discussion on making healthy choices and the barriers keeping clients from making healthy choices. Client identified her personal barriers as self-doubt, habit, fear of failure, and fear of success. Client reported she would like to make healthier decisions with organizing her time and ensuring she does not overwhelm herself. Client attentive and contributing to discussion of strategies to improve healthy decision making. Client selected the strategy of creating a pros and cons list as her game plan for the week. Appeared to benefit from reflecting on application of coping skills, identifying barriers, and creating a game plan to improve healthy decision-making skills. Narrative Note: []
== END 2020-07-15 23:59 ==
LOC: BHOG 14:00
PROVIDERS: Referring Provider Psychiatry & Neurology Psychiatry; Visit Provider Psychiatry & Neurology Psychiatry
DX: F41.0 Panic disorder [episodic paroxysmal anxiety] (principal); F33.1 Major depressive disorder, recurrent, moderate; F43.10 Post-traumatic stress disorder, unspecified
CPT/HCPCS: 90853

== ENCOUNTER 2020-07-18 14:00 | Outpatient (RCR) | payer MEDICAID, SELFPAY ==
--- NOTE | 2020-07-18 14:00 | BH.SGPN.GN ---
This psychotherapy group was provided via telehealth using two-way, real-time interactive telecommunication technology between the patients and the provider.?The interactive telecommunication technology included audio and video.? ?The patient was offered telemedicine as an option for care delivery during the COVID-19 pandemic and consented to this option. ?Patient location: [place] ?Provider located at [facility] Behaviors/Verbalizations/Mental Status: []Client alert and oriented, neatly dressed and groomed. Eye contact good. Motor activity appropriate. Speech within normal limits. Affect congruent, mood euthymic. Thoughts linear, logical, no signs of hallucinations or delusions. Client Response/Progress/Benefit: []Client responded well to session, checking in using GAPS. Client?s emotion today is ?empowered and in control? and stated she had a rough day because of school stress, but she was able to manage this and not stay stuck. Client reported multiple wins including a good therapy session, spending time with a friend, and practicing self-compassion with school. Client followed her gameplan and put up visual cues in her apartment to remind client to use self-care. Client has also been using grounding, self-talk, and thought challenging to manage mood. Receptive of discussion on self-talk and its influence in maintaining long-term mental health stability. Client shared personal benefits of practicing affirmations such as increased self-compassion and confidence. Provided strategies for improving effective creation and application of believable personal affirmations. Client wrote out two affirmation statements to put in her car. Statements were ?I?m having a bad day and that?s okay I don?t have to live there? and ?I have the skills to improve this moment.? Progress noted in client?s self-report of improved mood stability and confidence in self. Client to continue aftercare group to promote gains and further increase application of healthy coping skills. Narrative Note: []
--- NOTE | 2020-07-18 18:56 | BH.MTP_ITS ---
Treatment Plan Review Date of Admission:: 06/20/20 Date of Treatment Plan Review:: 07/18/20 Admitting Diagnoses:: Panic disorder (F 41.0), generalized anxiety disorder, major depressive disorder recurrent moderate (F 33.1); history of PTSD Current Diagnoses:: Panic disorder (F 41.0), generalized anxiety disorder, major depressive disorder recurrent moderate (F 33.1); history of PTSD Patient's Response to Treatment:: Pt has responded well to treatment and remains actively engaged in the aftercare group. This is evidenced by pt's consistent attendance, active contributions in group, continued use of self-reflection, and reports of ongoing reports of application of treatment skills learned. Pt stated she has been struggling somewhat recently with managing her symptoms of depression and anxiety. Pt attributes this to recently moving back on campus for school and adjusting to the stress of the start of the school year. Reports that although she has experience increased anxiety, she is able to mostly manage these thoughts by reaching out to her supports and using the thought challenging skills she has learned while in the IOP program. Pt additionally stated that setting healthy boundaries with herself and her supports is aiding in reducing unnecessary extra stressors and that creating a daily schedule has helped to manage her anxiety as well. Pt stated she is still utilizing her healthy skills despite these stressors, but is finding herself struggling in doing so at times. Status of Current Problems and Symptoms: Pt reports struggling with ongoing anxiety since discharging from [facility] tx. Pt reports that although her symptoms continue, she feels she is managing her new stressors in healthy ways and is doing better to address her emotions rather than shutting down or minimizing as she has in the past. Pt continues to have some difficulties in managing stress in the moment, but has been working on doing better with using calming skills to manage anxiety in these moments as well as apply thought challenging skills to catastrophizing. Problem #1 Problem Name:: Pt will maintain or see a reduction in mental health symptoms Status of Goals:: Obj 1 - Pt is showing overall improvements in her DSM-d scores as overall report of sx has dropped by 6%. Pt reports that she has been able to maintain her management of anxiety without seeing a significant increase despite returning to school. Attributes this to ongoing healthy skill application. Pt's depressive symptoms have increased by 50%. Pt reports this may be related to returning to school and adjusting to not having her primary supports available as frequently. She reports that she has been doing well to try to implement self-care skills and reaching out to supports for managing her depressive sx as they occur. Obj 2 - Pt is able to verbalize at least 2 of the maintenance skills and is applying skills but struggles at times with consistency. Team Recommendations:: Team recommends pt continue IOP aftercare group in addition to attending regular outpatient counseling in order to decrease depressive and anxious symptoms as well as prevent further decompensation.
--- NOTE | 2020-07-25 14:05 | BH.SGPN.GN ---
This psychotherapy group was provided via telehealth using two-way, real-time interactive telecommunication technology between the patients and the provider.?The interactive telecommunication technology included audio and video.? ?The patient was offered telemedicine as an option for care delivery during the COVID-19 pandemic and consented to this option. ?Patient location: [place] ?Provider located at [facility] Behaviors/Verbalizations/Mental Status: [] Client alert and oriented, casually dressed and groomed. Eye contact good. Motor activity appropriate. Speech within normal limits. Affect congruent. mood euthymic. Thoughts linear and logical. No signs of hallucinations or delusions. Client Response/Progress/Benefit: [] Client responded well to session, checked in using her GAPs worksheet. Client identified making progress on goal of more actively saying positive affirmations, indicating that she has been using visual aids as a regular reminder to stop and tell herself something positive. Identified recent coping skills used as: thought challenging, affirmations, and being willing to more actively reach out to her supports. Client shared a stressor today is struggling with negative thoughts related to a recent fight she had with her mother. Did well to identify that giving them both space and using her other supports would be a healthy way of maintaining the relationship. Client engaged well during the discussion of self-compassion. Noted connecting with the benefits of self-compassion and shared that for her this is an area she has always struggled with, but that she has been improving in this area. Client appeared to benefit from psychoeducation on the three elements of self-compassion and debunking common myths about what self-compassion is. Client engaged during discussion brainstorming various strategies to improve use of self-compassion. Identified wanting to use more self-compassionate affirmations by regularly reminding herself ?We all have setbacks and that?s okay?. Narrative Note: []
--- NOTE | 2020-08-08 14:00 | BH.SGPN.GN ---
This psychotherapy group was provided via telehealth using two-way, real-time interactive telecommunication technology between the patients and the provider.?The interactive telecommunication technology included audio and video.? ?The patient was offered telemedicine as an option for care delivery during the COVID-19 pandemic and consented to this option. ?Patient location: [place] ?Provider located at [facility] Behaviors/Verbalizations/Mental Status: []Client alert and oriented, neatly dressed and groomed. Eye contact good. Motor activity appropriate. Speech within normal limits. Affect congruent, mood euthymic and anxious. Thoughts linear, logical, no signs of hallucinations or delusions. Client Response/Progress/Benefit: []Client responded well to session, engaged throughout. Client reviewed her GAPs and shared current stressors which included being stressed about schoolwork. Client reports in the past week she has been using opposite action, thought challenging, and positive affirmations. Client participated in the group discussion of maintenance and the benefits of creating a maintenance plan. Client contributed as the group discussed what components make up a maintenance plan. Client created her own maintenance plan for burnout. Client identified warning signs which included: over-working herself, worrying about the future, and unrealistic expectations. Client's coping skills included: stepping away from schoolwork, self-care, and cutting out any unnecessary stressors. Appeared to benefit from creating a maintenance plan to promote gains and prevent setbacks. Will continue aftercare next week. Narrative Note: []
== END 2020-08-14 23:59 ==
LOC: BHOG 14:00
PROVIDERS: Referring Provider Psychiatry & Neurology Psychiatry; Visit Provider Psychiatry & Neurology Psychiatry
DX: F41.0 Panic disorder [episodic paroxysmal anxiety] (principal); F33.1 Major depressive disorder, recurrent, moderate; F43.10 Post-traumatic stress disorder, unspecified
CPT/HCPCS: 90853

== ENCOUNTER 2020-08-15 13:59 | Outpatient (RCR) | payer MEDICAID, SELFPAY ==
--- NOTE | 2020-08-15 14:05 | BH.SGPN.GN ---
Addendum entered and electronically signed by Luz Toney LSW 08/16/20 12:14: This psychotherapy group was provided via telehealth using two-way, real-time interactive telecommunication technology between the patients and the provider. The interactive telecommunication technology included audio and video. The patient was offered telemedicine as an option for care delivery during the COVID-19 pandemic and consented to this option. Patient location: [place] Provider located at [facility] Original Note: Behaviors/Verbalizations/Mental Status: []Client alert and oriented, casually dressed and groomed. Eye contact good. Motor activity appropriate. Speech within normal limits. Affect congruent, mood euthymic. Thoughts linear, logical, no signs of hallucinations or delusions. Client Response/Progress/Benefit: [] Pt responded well to session, provided input and listened attentively to peers. Reported feeling ?motivated? today and attributed this to continuing to do well with maintaining a balance between self-care and school work. Expressed she has been doing so by adhering to the personal boundary of ending her study time by 7pm each night. Pt engaged in discussion on self-advocacy. Worked with group to identify the benefits of self-advocacy, as well as common barriers. Identified a personal barrier as struggling to remind herself that self-care is necessary even when there are other stressors present. Worked with group to identify strategies to increase ability to advocate for oneself. Pt reported she wants to work on communicating her needs with both herself and her supports. Pt seemed to benefit from reviewing treatment progress and skill application, as well as learning about how to increase self-advocacy. Pt to continue aftercare program to continue to promote ongoing skill application, continue use of self-accountability in maintaining healthy coping, and prevent decompensation. Narrative Note: []
--- NOTE | 2020-09-05 14:22 | BH.DS ---
Discharge Summary - Demographics Date of Admission:: 06/20/20 Discharge Date: 09/12/20 Presenting Problems at Admission:: Client discharged from IOP tx and transitioned to IOP aftercare to maintain gains client made in IOP and to reinforce healthy coping skills. At admission to IOP aftercare, client reported experiencing slight symptoms of anxiety and depression. Client was also experiencing life stressors including returning to college, finances, and COVID. Client also continued to experience perfectionist tendencies and worries about her future of reduced intensity. Despite these stressors, client reported ability to cope with her mental health and was activity using healthy skills. Discharge Diagnoses:: Panic disorder (F 41.0), generalized anxiety disorder, major depressive disorder recurrent moderate (F 33.1); history of PTSD Reason for Discharge:: Client has accomplished her tx goals AEB her ability to maintain mood stability and gains made in IOP. Client will transition to traditional outpatient counseling. - Treatment Progress During Treatment & Response: Client was engaged in IOP aftercare as evidenced by client's participation in group discussions and self-report of consistently applying coping skills. Client's DSM-5 scores for depression had increased at review, but client attributed it to starting a new semester. At discharge, Client self-reported that she was experiencing less depression and anxiety. Additionally, client was reporting an improved mood, more positive thinking patterns, consistent use of healthy coping skills, better balance at school, and better self-boundary setting skills. Issues Still to be Addressed:: Client can benefit from ongoing outpatient counseling and medication management to promote gains and reinforce healthy coping skills. Client can continue to work on assertive communication, thought challenging, boundary self-compassion, and self-advocacy. Discharge Recommendations/Instructions:: Client is encouraged to continue with outpatient counseling on a weekly basis. Client has a therapist she sees near her college in [place]. Client also plans to follow up with her psychiatric provider at [facility]. Discharge Handout: Complete Discharge Handout with client on aftercare options and continuity of care.
--- NOTE | 2020-09-12 14:05 | BH.SGPN.GN ---
Behaviors/Verbalizations/Mental Status: [] Client alert and oriented, casual dress, hygiene tended to. Eye contact good. Motor activity appropriate. Speech within normal limits. Affect congruent, mood euthymic and anxious. Thoughts linear, logical, no signs of hallucinations or delusions. Client Response/Progress/Benefit: []Pt attentive and provided input throughout. Noted feeling ?bittersweet? as it is her last day in Aftercare. Shared progress she has made throughout treatment and discussed feeling much more confident and capable of managing her mental health sx as a result. Identified a personal win as allowing herself to take credit for and be proud of her personal progress in the program. Pt engaged in group discussion reviewing the mental health benefits of establishing a consistent daily routine. Group identified benefits to include: improving sense of purpose, increasing self-confidence, reducing stress, and improving follow through. Pt connected with discussion on common barriers to following through with personal routine and engaged in brainstorming strategies to overcome identified barriers. Pt identified wanting to improve her current routine by doing a nightly ?declutter? of her physical space. Shared this will help to support her mental sohail by reducing stress and feeling less overwhelmed by the physical environment. Pt seemed to benefit from support from peers and reviewing the mental health benefits of routine. Progress noted in pt overall ability to maintain gains throughout Aftercare program as well as continued reports of improved sx management. Pt to discharge from Aftercare given progress and will continue with individual counseling on an outpatient basis. Narrative Note: []
--- NOTE | 2020-10-14 14:17 | BH.TPR ---
Treatment Plan Review Date of Admission:: 06/20/20 Date of Treatment Plan Review:: 08/15/20 Admitting Diagnoses:: Panic disorder (F 41.0), generalized anxiety disorder, major depressive disorder recurrent moderate (F 33.1); history of PTSD Current Diagnoses:: Panic disorder (F 41.0), generalized anxiety disorder, major depressive disorder recurrent moderate (F 33.1); history of PTSD Problem #1 Problem Name:: Pt will maintain or see a reduction in mental health symptoms
--- NOTE | 2020-10-14 14:23 | BH.DS ---
Discharge Summary - Demographics Date of Admission:: 06/20/20 Discharge Date: 09/12/20 Discharge Diagnoses:: Panic disorder (F 41.0), generalized anxiety disorder, major depressive disorder recurrent moderate (F 33.1); history of PTSD - Treatment Discharge Handout: Complete Discharge Handout with client on aftercare options and continuity of care.
== END 2020-09-14 23:59 ==
LOC: BHOG 13:59
PROVIDERS: Referring Provider Psychiatry & Neurology Psychiatry; Visit Provider Psychiatry & Neurology Psychiatry
DX: F41.0 Panic disorder [episodic paroxysmal anxiety] (principal); F33.1 Major depressive disorder, recurrent, moderate; F43.10 Post-traumatic stress disorder, unspecified
CPT/HCPCS: 90853

== ENCOUNTER 2024-05-15 08:00 | Outpatient (RCR) | payer MEDICAID, SELFPAY ==
--- NOTE | 2024-05-15 10:10 | BH.SGPN.GN ---
Behaviors/Verbalizations/Mental Status: [] Pt alert and oriented, appropriate grooming/appearance. Eye contact good. Motor activity appropriate. Speech within normal limits. Affect congruent, mood euthymic. Thoughts linear, logical, no signs of hallucinations or delusions. Client Response/Progress/Benefit: [] Pt first day in program and was an active participant in group discussions. Attentive during psychoeducation. Contributed during interactive discussions in which peers attempted to define crisis. Group identified examples of potential crisis. Group also worked together to identify unhealthy responses to crisis which included lashing out, isolation, self-harm, substance abuse, and sleep disturbances.. Pt identified personal warning signs as negative thinking, canceling plans, and self-harm. Benefited from increased understanding of crisis and awareness of personal responses to crisis. Pt will continue IOP tx to increasing healthy boundary making, improve distress tolerance, and prevent decompensation. Narrative Note: []
--- NOTE | 2024-05-15 11:10 | BH.SGPN.GN ---
Behaviors/Verbalizations/Mental Status: [] Pt alert and oriented, appropriate grooming/appearance. Eye contact good. Motor activity appropriate. Speech within normal limits. Affect congruent, mood euthymic. Thoughts linear, logical, no signs of hallucinations or delusions. Client Response/Progress/Benefit: [] Pt was an active participant in group discussions. Attentive during psychoeducation. In small group pt along with peers developed an active plan for their crisis warning signs. Pt identified three crisis warning signs as well as an action plan for each. One crisis warning sign was lack of racing thoughts. Pt identified coping skills to help with this such as: thought challenging, breathing exercising, change of scenery, and grounding techniques. Benefited from increased awareness of crisis warning signs and by developing crisis intervention strategies. Will continue in IOP to prevent decompensation, improve daily functioning, and increase self care. Narrative Note: []
--- NOTE | 2024-05-17 09:50 | BH.NA ---
Physical Data Vital Signs Pulse Rate: 83 Blood Pressure: 132/88 Height/Weight Height: 1.6 m Weight:: 104.326 kg Weight in Pounds: 230.0 lbs Current Medication Compliance Medication Compliance Do you take your medication as prescribed?: Yes Nutritional History Appetite Nutritional Instructions: Describe your appetite:: Fair Additional nutritional information:: Client denies a change in weight, but states she has noticed a decreased appetite. Functional Assessment Sleep Pattern Describe any problems with sleeping: Client states she sleeps 8-10 hours per night. Sensory/Communication Assess Vision Problems Do you have any vision problems?: Glasses Communication Problems Do you have difficulty understanding what people are saying?: No Medical Problems/History Neurological Conditions Neurological: Headaches Pain Assessment Do you have acute or chronic pain?: No Surgical History Surgical History Have you had any surgeries? If so, list type and date:: Yes (wisdom teeth) Substance Abuse Substance Abuse Please describe substance abuse in the last 30 days:: Client states she occasionally drinks alcohol. Client states she started smoking cigarettes in April during her hospitalization, and now only vapes (and previously had not done that before hospitalization). Client states she used to use marijuana daily, but states she now uses it only occasionally and last used it about a week ago. Client states she has 1-2 drinks per day with caffeine, and states occasionally has an energy drink. Mental Status Summary Mental Status Significant Findings/Observations on Appearance and Mood:: Client is alert and oriented x 4. Client is casually groomed. Client is cooperative with assessment. Client makes good eye contact. Client's voice has normal rate and volume. Client has mostly appropriate affect, but laughs at times while talking (about drinking alcohol last night, about starting to smoke cigarettes while in the hospital, etc). Client makes logical associations and has normal processing. Client denies delusions/hallucinations. Client denies current SI, but does state she does have passive SI at times without intent or plan. Suicide Assessment Suicidal Ideation Are you currently or have you been suicidal in the past?: Yes Suicidal Intentional Rating Scale (SIRS): Suicidal thoughts (past) (passive SI at times but denies at this time) Physician Notification Past Psychiatric History MH Treatment Hx Past Psychiatric Medications:: Lamictal, Klonopin, Buspar, Propranolol, Effexor, Pristiq, Wellbutrin, Viibryd. Client states she has had serotonin syndrome in the past and will not take SSRI's or SNRI's now. Age of first mental health symptoms: Client states she first had counseling in 9th grade around age 12, and did start medication for depression while in high school after that. Describe (age, circumstance, etc) any past hospitalizations: 04/28/24- [facility] for SI with a plan to overdose. Client has no history of suicide attempts. Current providers for mental health treatment (counselor, psychiatrist, case aide, etc.): Nereyda Perez for therapy, Ro Burkett [facility] [employer] at [place] [id number] for psychiatry Fall Risk Assessment Age Age: Less than 60 Mental Status Mental Status: Willing & able to ask for assistance when needed Physical Status Physical Status: No problems Impairments Impairments: None Elimination Elimination: Continent AND independent Gait or Balance Gait or Balance: Walks independently Hx of Falls History of falls in the past 6 months: No known history Medications/Substances Psychotropics:: Antidepressants and Mood stabilizers Others:: Antihypertensives Medications/substances used within the past 24 hours or ordered to administer: 3 or more of the medications/substances listed above Total Score Total Points:: 2 RN Summary of Impressions Impressions Recommendations Impressions: Psychiatric Issues: 1. Major depressive disorder, recurrent, severe without psychosis 2. Generalized anxiety disorder 3. Panic disorder 4. Borderline personality disorder Level of Care How do the client's current symptoms and functional deficits support need for this level of care?: Client was in IOP in April 2020, and has returned to [facility] at this time after a recent hospitalization in April 2024 for suicidal ideations with a plan to overdose. 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 Client also states around the time she was hospitalized, she felt lonely without a good support system and had panic attacks daily around going to work. Client states she has not had a panic attack since 04/28/24 when she was hospitalized. Client reports stress now after being hospitalized as she does not have a job and financial stress is put on her boyfriend to pay their bills. IOP will promote gains and prevent further decompensation while providing social support and skills training.
--- NOTE | 2024-05-17 10:10 | BH.SGPN.GN ---
Behaviors/Verbalizations/Mental Status: [] Eye contact is good. Motor activity is appropriate. Appearance is casual. Speech is Appropriate. Mood is euthymic. Affect is congruent. Thoughts are linear and logical. No evidence of psychosis. Client Response/Progress/Benefit: [] Pt engaged participant AEB listening to others, engaging in activity, and providing feedback at times. Attentive during psychoeducation and provided insight into obstacles that impede mental wellness. Pt shared with group current mental health reality and desired mental health reality. Stating she would like to have more healthy choices. Identified barriers to desired reality include: self doubt, lack of confidence, and unrealistic expectations. Benefited from taking look at current mental health state and obstacles for progress. Pt to continue IOP tx to improve mood stability, increase self image, and prevent decompensation. Narrative Note: []
--- NOTE | 2024-05-17 11:10 | BH.SGPN.GN ---
Behaviors/Verbalizations/Mental Status: [] Eye contact is good. Motor activity is appropriate. Appearance is casual. Speech is Appropriate. Mood is euthymic. Affect is congruent. Thoughts are linear and logical. No evidence of psychosis. Client Response/Progress/Benefit: [] Pt was an engaged participant in group discussion and activity. Worked with group to identify strategies to help overcome barriers and obstacles to desired reality. Group developed strategies for the common barriers. Identified personal barriers to desired reality and choose one obstacle to work. Pt stated she wants to work on barrier of avoidance by setting small goals instead of looking to big ones. Pt seemed to benefit from increased repertoire of healthy coping skills/strategies to overcome common barriers to moving forward. Pt is to continue IOP to challenge distortions and prevent decompensation. Narrative Note: []
[2024-05-17 12:08] VITALS: BP 132/88; PULSE 83
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
--- NOTE | 2024-05-17 12:33 | BH.DR.ITP ---
Initial Treatment Plan Patient Information Visit Information: ADMISSION DATE: EXPECTED LOS: 4-6 weeks Problems/Symptoms Problem #1:: Depression Symptom:: Sadness, decreased concentration, hopelessness, guilt, passive, fleeting suicidal ideation, recent active suicidal ideation Problem #2:: Anxiety Symptom:: Worry, rumination, panic attacks
--- NOTE | 2024-05-17 15:12 | BH.MDN ---
Multi-Disciplinary Note Note 45-min Individual: Time Started:: 09:06 Date: 05/17/24 Purpose of session/treatment goals addressed:: Purpose of session was to establish rapport, gather updated information on mental health hx and current functioning, as well as identify goals for tx. Eye Contact:: Good Motor Activity:: Appropriate Appearance:: Casual Speech:: Appropriate Mood:: Anxious and Depressed Affect:: Congruent Thoughts:: Linear, Logical and No evidence of hallucinations/delusions noted Staff Interventions:: motivational interviewing, psychoeducation on: (Borderline Personality Disorder and the BPD relationship cycle), rapport building, strengths perspective and treatment planning Client Response:: Therapist met with pt as pt individual therapist is out this week due to illness. Pt was previously in the IOP program April-July 2020, this is her first day back in IOP treatment and shared wanting to refresh her coping skills and better understand her new diagnosis. Pt was recommended to return to [facility] treatment due to worsening sx of depression and anxiety resulting in psychiatric admission. Pt admitted to [facility] psychiatric unit on April 28 for worsening depression and suicidal ideation secondary to increasing occupational stress. Pt had been working as a [employer] for the last 7 months and noted that in the past few months staffing has been limited, resulting in pt being asked to take on additional responsibilities which she was unable to keep up with. Reports quitting her job shortly after hospitalization, which was initially a relief but pt is now stressed about finances. Pt is currently living with her boyfriend of 2 years who she reports is supportive but has also been placing pressure on pt to look for a new source of income as his sole income is not enough to support them both. Pt reports she has recently been isolating from friends and family outside of her boyfriend, resulting in increased dependance and difficulties coping when he is not home. Reports that additional stressors include ongoing tension in the relationship with her mother and fear of abandonment or rejection by her boyfriend. Noted her outpatient therapist recently diagnosed pt with Borderline Personality Disorder and she connects with several characteristics. Pt noted wanting to learn more about this diagnosis and how her symptoms specifically impact her mental health and relationships. Receptive of psychoeducation on the BPD relationship cycle and pt able to identify various characteristics within each of the stages that she has displayed in past relationships and how these characteristics impacted the health of the relationships and reinforced pt fears of rejection/abandonment. Risks/Concerns:: Pt denies any SI, plan, or intent since her psych admission in April. Denies any current si, plan or intent as of this date 05/17/24. Will continue to monitor. Progress Toward Goals/Plan:: Pt first day in IOP program, therefore no progress noted. Pt reports feeling hopeful the program will aid in improving her mood stability and remind her of healthy skills to manage her mental health sx. At time of admission, pt endorses, panic, daily ruminating thoughts and worry about the future, isolation, easily overwhelmed, loss of motivation, loss of interest, fear of abandonment or rejection, negative self-talk, and poor self-esteem. Pt would like to improve her confident, better manage her anxiety, and learn more about her dx. Time Stopped:: 09:47
--- NOTE | 2024-05-23 09:05 | BH.SGPN.GN ---
Behaviors/Verbalizations/Mental Status: [] Eye contact is good. Motor activity is appropriate. Appearance is casual. Speech is Appropriate. Mood is euthymic. Affect is full. Thoughts are linear and logical. No evidence of psychosis. Reviewed daily check in sheet and no reports of suicidal ideations or intent. Client Response/Progress/Benefit: [] Pt was an active participant in group discussions. Attentive. Daily symptom tracker notes 02/17 for anxiety. Shared with the group that she experiences a ptsd flare-up yesterday which led flashbacks and a panic attack. She was able to identify that she was escalating and needed to act. Utilized coping skills and was able to decrease distress and calm thoughts/fears. Proud that she did not ruminate on negative thoughts and was able to move on from the event and enjoy her evening. She has been stressed and concerned about losing her apartment which resulted in finding a job. Hopeful about the new job. Benefited from group support, encouragement, and feedback. Will continue in IOP to maintain safety, prevent decompensation/re-admission to psych unit, and to increase healthy coping skills. Narrative Note: []
--- NOTE | 2024-05-23 10:20 | BH.SGPN.GN ---
Behaviors/Verbalizations/Mental Status: []Pt alert and oriented, casually dressed and groomed. Eye contact good. Motor activity appropriate. Speech within normal limits. Affect congruent, mood euthymic. Thoughts linear, logical, no signs of hallucinations or delusions. Client Response/Progress/Benefit: [] Pt responded well to session, contributing to discussion, and engaged during the activity. Group identified the benefits of change which included: increased confidence, improving mental health, and making progress. Worked with the group to identify barriers to change, which included: uncomfortable emotions such as anxiety and fear, lack of energy, worried about what others will think, and fear of the unknown. Pt participated along with group in activity where they identified and discussed the emotions related to change. Pt connected with peers that one can have many conflicting emotions when faced with change. Benefited from increased awareness and understanding of emotions, benefits, and barriers related to change. Will continue IOP tx to improve healthy coping, improve daily functioning, challenge distorted thoughts, and prevent decompensation.
--- NOTE | 2024-05-23 14:00 | BH.MDN ---
Multi-Disciplinary Note Note 45-min Individual: Time Started:: 11:15 Date: 05/23/24 Purpose of session/treatment goals addressed:: To gain insight on pt's symptoms of BPD that reinforce depression and anxiety. Another goal was to work on goal #1 of pt's tx plan. Eye Contact:: Fair Motor Activity:: Appropriate Appearance:: Casual Speech:: Appropriate and Tangential Mood:: Anxious Affect:: Congruent Thoughts:: Linear, Logical and No evidence of hallucinations/delusions noted Staff Interventions:: thought challenging, motivational interviewing, mindfulness skills, strengths perspective, treatment planning, goal setting and other (Started the BPD Workbook) Client Response:: Pt responded well to session, open to meeting with therapist. Pt shared last week went well in IOP, but she has been stressed at home due to finances. Pt stated her boyfriend recently told her that if they lose their apartment, he is not sure they can be together. This triggered pt's fear of abandonment which led to some thoughts of the other day. Pt shared she was able to combat these thoughts and she had a conversation with her boyfriend about the situation. Pt stated he has commitment issues and I have abandonment issues and sometimes those don't match up. Pt shared when she fears abandonment it leads to panic, catastrophizing, and excessive guilt about not doing enough. Pt stated after she and her boyfriend talked, pt went out and looked for a job. Pt found a job and basically got hired on the spot. This reduced some of pt's stress, but pt shared with this job she will still not be able to afford all her bills right now. Pt plans to reach out to her dad to loan her some money which pt feels is realistic. Pt receptive to working on the BPD workbook and pt completed the self-assessment. Pt's severe symptoms of BPD were fear of abandonment, mood instability, dissociation, identity disturbance, and self-destructive behaviors. Pt looked at times when this symptoms were present and identified outliers to these symptoms. Pt receptive to working on exploring her attachment style for homework as this can help pt work on her fear of abandonment. Pt also encouraged to combat inappropriate guilt. Risks/Concerns:: Pt denies any SI, plan, or intent since discharging from the hospital. Pt is future oriented. Progress Toward Goals/Plan:: Pt started IOP tx last week and she reports enjoying the program. Pt expressed she wanted to work on her BPD symptoms and learn more about these, so we began the BPD workbook today. Pt was receptive and connected with numerous symptoms and thought patterns. Pt able to see how her anxiety, depression, and BPD are all connected. Pt will continue IOP tx to prevent decompensation, increase distress tolerance skills, and improve daily functioning. Time Stopped:: 12:00
--- NOTE | 2024-05-23 15:29 | BH.MTP_ITS ---
[facility] Treatment Plan Patient Information Program Physician:: Dr. Soheila Juares Primary Therapist:: Jenae RIOS Psychiatric Diagnoses Psychiatric Diagnoses:: Major depressive disorder, recurrent, severe without psychosis F 33.2; Generalized anxiety disorder; Panic disorder; Borderline personality disorder Diagnosis Code(s):: F 33.2 Estimated LOS Estimated LOS (in weeks):: 6 Problem/Goal #1 Problem/Goal #1 Stated Goal:: Pt will decrease depressive symptoms, hopelessness, worthlessness, negative self-talk, and suicidal ideations. Description of Barriers: Pt currently having difficulties maintaining employment due to severe panic attacks with dissociation, erratic moods, and depressive symptoms. Pt reports severe fear of abandonment which can cause distress in relationships. Pt has negative thoughts of self and unrealistic expectations of self. Functional Impact: Pt is a 24-year-old female with a history of MDD, DEL, BPD, and self-reported autism spectrum disorder. Pt was referred to [facility] following a hospitalization in April 2024 for suicidal ideation with plans to OD in the [facility]. Pt is known to [facility] at [facility] and successfully completed the program in 2019. Pt presents to [facility] with a depressed mood, recent SI, negative thoughts of self, excessive guilt, anhedonia, and lack of motivation. Pt also reports symptoms of BPD including periods of dissociation, erratic moods, feelings of emptiness, and poor sense of self. Pt's panic attacks have been impacting pt's ability to work and function on a daily basis as well. Goal Relevant Strengths/Supports: Pt has outpatient counseling and psychiatry. Pt has a supportive boyfriend and she has hobbies she enjoys. Pt completed IOP in the past and reported it was helpful. Objectives Objective #1: Stated Objective: Pt will learn and utilize 2-3 healthy coping strategies to better manage depressive symptoms and reduce intensity of BPD symptoms as shown by a decrease of DMS-5 symptoms for depression. Interventions: Through group and individual sessions, therapist will help pt identify triggers and warning signs of depression and guilt including emotional, physical, and behavioral changes. Therapist will teach pt various coping skills to manage symptoms and give pt tangible resources to use to regulate emotions. Therapist will use cognitive restructuring techniques and help pt gain awareness of negative thoughts that reinforce guilt and depression. Therapist will provide psychoeducation on maintenance cycles and help pt learn ways to break unhealthy maintenance cycles. Therapist will help pt incorporate behavioral activation and assist pt in setting SMART goals. Discharge Criteria: Pt will have met this goal when can report learning and using at least 2 coping skills to manage depressive symptoms and reduce isolation. Additionally, pt will have met this goal when pt's DSM-5 scores for depression decrease. Target Date: 06/26/24 Review Date: 06/05/24 Status: open Objective #2: Stated Objective: Pt will identify at least 2-3 negative self-talk messages used to reinforce negative core beliefs, worthlessness, and isolation and replace thoughts with balanced, realistic messages. Interventions: Therapist will help pt identify distorted, negative beliefs about self and replace with more realistic, affirmative messages. Therapist will use CBT and DBT to help pt increase insight to the connection between thoughts, emotions, and behaviors. Therapist will encourage pt to practice thought challenging. Discharge Criteria: Pt will have achieved this goal when can verbalize at least 2 cognitive distortions and effectively replace those thoughts with affirmative messages. Target Date: 06/26/24 Review Date: 06/05/24 Status: open Problem/Goal #2 Problem/Goal #2 Stated Goal:: Will reduce anxiety and panic symptoms through increasing emotional regulation and distress tolerance skills Description of Barriers: Pt currently having difficulties maintaining employment due to severe panic attacks with dissociation, erratic moods, and depressive symptoms. Pt reports severe fear of abandonment which can cause distress in relationships. Pt has negative thoughts of self and unrealistic expectations of self. Functional Impact: Pt is a 24-year-old female with a history of MDD, DEL, BPD, and self-reported autism spectrum disorder. Pt was referred to [facility] following a hospitalization in April 2024 for suicidal ideation with plans to OD in the [facility]. Pt is known to [facility] at [facility] and successfully completed the program in 2019. Pt presents to [facility] with a depressed mood, recent SI, negative thoughts of self, excessive guilt, anhedonia, and lack of motivation. Pt also reports symptoms of BPD including periods of dissociation, erratic moods, feelings of emptiness, and poor sense of self. Pt's panic attacks have been impacting pt's ability to work and function on a daily basis as well. Goal Relevant Strengths/Supports: Pt has outpatient counseling and psychiatry. Pt has a supportive boyfriend and she has hobbies she enjoys. Pt completed IOP in the past and reported it was helpful. Objectives Objective #1: Stated Objective: Pt will increase ability to manage stressors and anxiety by gaining 2-3 distress tolerance skills. Interventions: Through group and individual therapy, pt will learn various coping skills to help manage stress and anxiety. Therapist will utilize DBT distress tolerance skills to increase awareness and give pt tools to more effectively manage anxiety. Therapist will provide psychoeducation on emotional regulation and help pt identify unhealthy coping skills he wants to change. Discharge Criteria: Pt will have accomplished this goal when can report improved ability to manage stressors and identify at least 2 distress tolerance skills. Target Date: 06/26/24 Review Date: 06/05/24 Status: open Objective #2: Stated Objective: Pt will identify 2-3 anxiety and panic triggers and 2 coping skills to use when feeling anxious or overwhelmed to manage anxiety as shown by reducing DSM-5 scores for anxiety Interventions: Therapist will provide education on anxiety, avoidance behaviors, and maintenance cycles. Therapist will help pt explore personal symptoms and warning signs of anxiety and irritability. Therapist will teach pt coping skills to improve emotional regulation, mindfulness, and distress tolerance to help pt cope with anxiety in the moment. Discharge Criteria: Pt will have accomplished this goal when he can identify at least 2 triggers and report using 2 coping skills to manage anxiety and irritability. Additionally, pt will have accomplished this goal AEB reduction of DSM-5 scores for anxiety. Target Date: 06/26/24 Review Date: 06/05/24 Status: open
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
--- NOTE | 2024-05-25 09:00 | BH.SGPN.GN ---
Behaviors/Verbalizations/Mental Status: []Pt alert and oriented, casually dressed and groomed. Eye contact good. Motor activity appropriate. Speech within normal limits. Affect congruent, mood anxious and tired. Thoughts linear, logical, no signs of hallucinations or delusions. Reviewed pt?s symptom tracker, no risk for suicidal ideation, plan, or intent 05/25/24 Client Response/Progress/Benefit: []Pt responded well to session, attentive and engaged. Pt reports feeling on edge this morning because pt is feeling overwhelmed by financial stress. Pt shared she is trying to problem-solve ways to pay her bills and her family is being supportive, but this causes pt to feel like a burden. Pt did start her new job yesterday and pt shared it went well and she enjoys her boss. Pt was reminded to use self-care practices to help reduce the mental load pt is carrying currently. Pt appeared to benefit from positive feedback that reinforced pt's healthy decisions. Pt will continue IOP tx to prevent decompensation, reduce avoidance, and improve daily functioning. Narrative Note: []
--- NOTE | 2024-05-25 10:10 | BH.SGPN.GN ---
Behaviors/Verbalizations/Mental Status: [] Eye contact is good. Motor activity is appropriate. Appearance is casual. Speech is Appropriate. Mood is anxious, content. Affect is congruent. Thoughts are linear and logical. No evidence of psychosis. Client Response/Progress/Benefit: [] Pt receptive of session, actively engaged throughout AEB taking notes, providing input, and contributing in small group discussion. Appeared to connect with group topic of automatic thoughts and cognitive distortions, as well as the impact of thought patterns on mental health, coping behaviors, and relationships. This particular group is very heavy on psychoeducation and pt appeared to connect with distortions and how they can impact functioning. Identified struggling with all or nothing thinking and overgeneralization distortions. Pt appeared to benefit from gaining insight on distorted thinking patterns and how this impacts overall mental health. Will continue IOP to stabilize mood, improve ability to function, and prevent decompensation. Narrative Note: []
--- NOTE | 2024-05-25 11:20 | BH.SGPN.GN ---
Behaviors/Verbalizations/Mental Status: []Pt alert and oriented, casually dressed and groomed. Eye contact good. Motor activity appropriate. Speech within normal limits. Affect congruent, mood euthymic. Thoughts linear, logical, no signs of hallucinations or delusions Client Response/Progress/Benefit: [] Pt was an active participant during group discussion. Pt was placed in a smaller group and participated in combatting example distortions with peers. Pt was engaged in the smaller group, participated in group interactions to brainstorm answers, and appeared to be comprehending cognitive distortions. Pt could connect with mind reading and all or nothing distortions to negatively impact her. Benefited from gaining further insight and awareness of cognitive distortions as well as practicing ways to reframe and challenge thoughts. Will continue in IOP tx to increase consistent use of healthy coping skills, challenge negative thinking, and prevent deocmpensation.
--- NOTE | 2024-05-26 09:05 | BH.SGPN.GN ---
Behaviors/Verbalizations/Mental Status: [] Eye contact is good. Motor activity is appropriate. Appearance is casual. Speech is Appropriate. Mood is depressed. Affect is congruent. Thoughts are linear and logical. No evidence of psychosis. Reviewed daily check in sheet and no reports of suicidal ideations or intent. Client Response/Progress/Benefit: [] Pt was an active participant in group discussions. Attentive. Daily symptom tracker notes 01/17 for depression and anxiety. Pt states I can't find any wins reporting isolation, limited motivation, and low energy yesterday. Struggled to leave her bed due to depression. As she talked she was able to identify times throughout the day in which she utilized oppositive-action. She has also started a new job which she enjoys. Stressors include losing my psychiatrist. According to pt her psychiatrist left the practice. Shared how difficulty it can be to start with a new provider. She talked at length regarding upcoming stressors as well as lack of money. Limited progress noted. Benefited from group support, encouragment, and feedback. Will continue in IOP to maintain safety, prevent decompensation/re-admission to psych, and to improve functioning. Narrative Note: []
--- NOTE | 2024-05-26 10:15 | BH.SGPN.GN ---
Behaviors/Verbalizations/Mental Status: []Client alert and oriented, casually dressed and groomed. Eye contact good. Motor activity appropriate. Speech within normal limits. Affect congruent, mood anxious and content. Thoughts linear, logical, no signs of hallucinations or delusions. Client Response/Progress/Benefit: []Pt engaged in session AEB listening attentively to others and providing input throughout. Pt engaged in activity, able to connect how it can be uncomfortable and difficult to accept when things are out of one?s own control. Pt worked with group to identify what things in life can be hard to accept. Group identified things hard to accept as: change, loss, mental health diagnosis, other?s behaviors, and failure. Pt identified struggling to accept her current financial situation. Seemed to benefit from increased awareness of the importance of acceptance. Pt to continue in IOP tx to improve healthy coping skills, promote mood stability, and prevent decompensation. Narrative Note: []
--- NOTE | 2024-05-26 11:10 | BH.SGPN.GN ---
Behaviors/Verbalizations/Mental Status: []Pt alert and oriented, casually dressed and groomed. Eye contact good. Motor activity appropriate. Speech within normal limits. Affect congruent, mood content, anxious. Thoughts linear, logical, no signs of hallucinations or delusions. Client Response/Progress/Benefit: [] Pt responded well to session AEB taking notes and contributing to discussion throughout. Pt engaged as group continued discussion on acceptance and the mental health benefits of practicing acceptance. Pt and peers identified what makes acceptance challenging and pt completed a self-reflection exercise on what is hard to accept in pt's life. Pt identified what is hard to accept in her life and how it makes things harder when pt resists acceptance. Group identified strategies to increase acceptance and pt wants to work on creating a mantra to remind herself of when struggling with acceptance. Pt appeared to benefit from gaining insight and learning strategies to increase acceptance. Pt will continue IOP tx to prevent decompensation, improve daily functioning, and promote mood stability. Narrative Note: []
--- NOTE | 2024-05-31 09:00 | BH.SGPN.GN ---
Behaviors/Verbalizations/Mental Status: [] Pt alert and oriented, neatly dressed and groomed. Eye contact good. Motor activity appropriate. Speech within normal limits. Affect congruent, mood tired.. Thoughts linear, logical, no signs of hallucinations or delusions. Reviewed pt?s symptom tracker, no risk for suicidal ideation, plan, or intent 05/31/24 Client Response/Progress/Benefit: []Pt responded well to session, attentive and engaged. Pt reports feeling tired this morning due to stress about her grandma per her report. Pt's grandma recently had a heart attack, but pt shared her grandma is doing much better. Pt stated one of her wins today is that she is trying to use healthy distractions such as reading to manage her anxiety. Pt appeared to benefit from reflecting on progress and connecting with peers. Pt will continue IOP tx to prevent decompensation, improve daily functioning, and increase distress tolerance. Narrative Note: []
--- NOTE | 2024-05-31 10:10 | BH.SGPN.GN ---
Behaviors/Verbalizations/Mental Status: [] Pt alert and oriented, casually dressed and groomed. Eye contact good. Motor activity appropriate. Speech within normal limits. Affect congruent, mood anxious and depressed. Thoughts linear, logical, no signs of hallucinations or delusions. Client Response/Progress/Benefit: [] Pt active participant AEB pt providing input throughout group discussion. Pt attentive during psychoeducation about defense mechanisms. Engaged during small group discussions and helped group identify which defense mechanisms were maladaptive, adaptive, or ?somewhere in the nuñez.? Pt worked with small group on identifying how each defense mechanism can impact mental health and gave examples. Pt was engaged during small group discussion. ?Seemed to benefit from gaining awareness about the different defense mechanisms. Will continue in IOP to prevent decompensation/ re-admission to psych unit, maintain safety, and increase healthy coping. Narrative Note: []
--- NOTE | 2024-05-31 11:15 | BH.SGPN.GN ---
Behaviors/Verbalizations/Mental Status: []Pt alert and oriented, casually dressed and groomed. Eye contact good. Motor activity appropriate. Speech within normal limits. Affect congruent, mood dysthymic and anxious. Thoughts linear, logical, no signs of hallucinations or delusions. Client Response/Progress/Benefit: [] Pt responded well to session, participating in activity and small group discussion. Group reviewed the rest of the defense mechanisms and discussed how these are adaptive, maladaptive, or somewhere in the nuñ[place]. Pt participated in the experiential activity which encouraged pts to draw a castle that portrayed their different defense mechanisms. Pt's defense mechanisms included anticipation, humor, intellectualization, and denial. Pt shared she is working on managing humor by trying to challenge herself when tempted to joke about something serious. Pt listened to hall clerk teach different skills to help pt?s cope with or change their defense mechanisms. Pt appeared to benefit from gaining insight to the different defense mechanisms and learning coping skills. Pt will continue IOP tx to promote mood stability, increase coping repertoire, and prevent decompensation. Narrative Note: [] Narrative Note: []
--- NOTE | 2024-05-31 12:15 | PCM.BH.PN ---
Progress Note Progress Note: History of Present Illness/Interim History: The patient is a 24-year-old single female with a history of depression, anxiety, panic attacks and borderline personality disorder who is seen in follow-up at the [facility]. I last saw the patient 2 weeks ago and at that time no medication changes were made. According to the staff the patient has been consistent in her attendance and is engaged in the program. 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 In addition her grandmother became sick and went in the hospital recently and this has really stressed her. She has financial stress from debt she got into in the past and was still somewhat overwhelmed by this. Her panic attacks have decreased and she has had none in the past 2 weeks. She is having less crying episodes and hopelessness is only on occasion now. She still has some sadness and guilt. She denies passive thoughts of , suicidal ideation, homicidal ideation, plan for suicide, hallucinations or delusions. She will on occasion have fleeting, passive suicidal ideation if she gets severely stressed in his situation. Current Psychiatric Medications: [] Latuda 40 mg p.o. daily with food (x 5 weeks); propranolol 10 mg p.o. twice daily; Topamax 100 mg p.o. twice daily for mood and vestibular migraine headaches. Trazodone 50 mg at bedtime and rare use of Klonopin of unknown dose. Mental Status Examination: [] The patient is a 24-year-old female who appears normal for stated age and is seen with 1 lip piercing and wearing glasses. She has no psychomotor agitation or retardation and is ambulatory with a normal gait. She is casually dressed and groomed with good hygiene. Eye contact is good and speech is normal rate and rhythm and fluent with no pressure. Mood is depressed and anxious. Affect is full and normal. Thought process is goal-directed and organized. Thought content: There is no current evidence of passive thoughts of , suicidal ideation, homicidal ideation, hallucinations or delusions. Reality testing is intact. Judgment is intact. Insight fair. Impulsivity moderate to high. Diagnoses: [] 1. Major depressive disorder, recurrent, severe without psychosis 2. Generalized anxiety disorder 3. Panic disorder 4. Borderline personality disorder 5. Work and financial issues 6. Vestibular migraine headaches Plan: [] The patient will continue the IOP and behavioral health as the structure, support, education and group therapy will hopefully prevent worsening of the patient's symptoms which could require rehospitalization. She felt safe during the interview and if it anytime she does not feel safe she agrees to let us know or go to the emergency room. No medication changes were made today as the patient sees a new psychiatric outpatient provider tomorrow and has been on a lot of medication and feels this regimen is working for her. I did discuss with the patient that the Topamax dose which is needed for her vestibular migraine headaches could also cause her to feel tired or foggy. She will continue to follow-up with her outpatient psychiatric and medical providers and I will see the patient in follow-up in several weeks.
--- NOTE | 2024-06-01 10:10 | BH.SGPN.GN ---
Behaviors/Verbalizations/Mental Status: []Pt alert and oriented, neatly dressed and groomed. Eye contact good. Motor activity appropriate. Speech within normal limits. Affect congruent, mood anxious and euthymic. Thoughts linear, logical, no signs of hallucinations or delusions Client Response/Progress/Benefit: [] Pt was an active participate AEB listening attentively to others, participating in group discussions, and taking notes throughout. Participated as the group identified ways we can hurt others or sabotage self by not regulating our emotions. Participated with peers to identified ways emotions impact communication which pt shared she shuts down, personalizes, and assumes when she has strong emotions. Participated during group activity. Pt benefited from session by gaining an increased understanding on the importance of managing emotions to improve daily functioning. Will continue IOP tx to promote mood stability, combat distorted thoughts, and improve daily functioning. ?? Narrative Note: []
--- NOTE | 2024-06-01 11:10 | BH.SGPN.GN ---
Behaviors/Verbalizations/Mental Status: []Pt alert and oriented, casually dressed and fairly groomed. Eye contact good. Motor activity appropriate. Speech within normal limits. Affect congruent, mood euthymic and anxious. Thoughts linear, logical, no signs of hallucinations or delusions. Client Response/Progress/Benefit: [] Pt engaged in session AEB Pt listening attentively to peers and providing input. Attentive during psychoeducation on 4 zones of regulation. Pt able to identify feelings and behaviors for each zone. Pt identified coping skills one can use to support self in each zone. Identified being in the blue zone today, so pt feels she would benefit from playing video games she enjoys when she gets home. ?Benefited from increased education on zones of regulation or stages of alertness for emotions and healthy coping skills to use for each zone. Will continue IOP tx to promote mood stability, reduce negative self-talk, and improve daily functioning. Narrative Note: []
--- NOTE | 2024-06-01 13:26 | BH.MDN ---
Multi-Disciplinary Note Note 45-min Individual: Time Started:: 09:10 Date: 06/01/24 Purpose of session/treatment goals addressed:: To work on goal #1 of pt's tx plan. Another goal was to explore pt's attachment style and how this impacts relationships. Eye Contact:: Good Motor Activity:: Appropriate Appearance:: Neat Speech:: Appropriate Mood:: Anxious and Depressed Thoughts:: Circular and No evidence of hallucinations/delusions noted Staff Interventions:: thought challenging, mindfulness skills, strengths perspective, goal setting, taught coping skills (over-identification vs mindfully feeling.) and other (worked on the BPD workbook and reviewed attachment styles. Gave pt homework to read.) Client Response:: Pt responded well to session, open to meeting with therapist. Pt stated she is feeling motivated about treatment and she wants to explore more about her borderline personality disorder diagnosis. Pt and therapist went through the assessment in the BPD workbook and pt identified the symptoms she connects with the most and how mild-severe these impact her. Pt wanted to work on BPD because pt feels her fear of abandonment, mood instability, and negative view of self significantly impact her ability to function and her relationships. Pt was receptive to gentle thought challenge and validation from therapist as pt expressed feeling shame for having this diagnosis. Pt learned about mindfully feeling vs over-identification and pt reports this will be beneficial when pt is feeling a strong emotion. Pt also connected with attachment styles and shared she could be both anxious and fearful. Pt reported this impacts her current relationships because she is anxiously attached to her boyfriend, but has fearful attachment with friendships. Pt also stated that she is all or nothing with friendships which makes it challenging to maintain. Pt receptive to learning more about attachment for homework. Risks/Concerns:: Pt denies any suicidal ideations, plan, or intent. Progress Toward Goals/Plan:: Pt responding well to IOP tx AEB pt's consistent attendance and self-report of utilizing coping skills outside of IOP. Pt's symptoms are ongoing and pt reports her anxiety is worsening again due to financial stress. Pt is actively seeking employment, but not having a job has been a major stressor and trigger for negative thoughts of self. Pt will continue IOP tx to prevent decompensation, improve daily functioning, and increase self-compassion. Time Stopped:: 10:55
--- NOTE | 2024-06-02 09:05 | BH.SGPN.GN ---
Behaviors/Verbalizations/Mental Status: [] Eye contact is good. Motor activity is appropriate. Appearance is casual. Speech is Appropriate. Mood is euthymic. Affect is full. Thoughts are linear and logical. No evidence of psychosis. Reviewed daily check in sheet and pt reports 1/5 for suicidal thoughts and 0/5 for intent. Client Response/Progress/Benefit: [] Pt participated at times during the group discussion. Attentive. Daily symptom tracker notes 4/5 for depressed mood and 2/5 for anxiety. Tearful at times during check-in. Able to identify mental health wins which included self-care and behavioral activation. I enjoyed something yesterday. Also met with new outpatient psychiatrist which went well. Ruminations regarding finances are primary stressor which is leading to negative thoughts. Feels like a burden and overwhelmed. I'm depressed all the time. Communicating with support and they developed a budget last evening. Pt is also expecting her first check today. Awareness that he work on the past few weeks will pay off soon. No progress noted. Beneifted from group support, encouaragement, and feedback. Will continue in IOP to maintain safety, stabilize mood, and increase healthy coping skills. Narrative Note: []
--- NOTE | 2024-06-02 10:15 | BH.SGPN.GN ---
Behaviors/Verbalizations/Mental Status: []Pt alert and oriented, neatly dressed and groomed. Eye contact good. Motor activity appropriate. Speech within normal limits. Affect congruent, mood depressed but hopeful. Thoughts linear, logical, no signs of hallucinations or delusions. Client Response/Progress/Benefit: [] Pt responded well to session AEB sharing and listening attentively to others. Group identified types of social support (family, pets, professionals, spiritual, etc) and provided examples of benefits of having social support, including: decreased stress, increased self-esteem, encouragement, distraction, etc. Pt also participated in group discussion regarding the barriers to accessing support which pt shared she can over-rely on certain supports. Pt participated in experiential activity illustrating the impact communication, boundaries, and patience play in creating healthy support systems. Pt appeared to benefit from increased knowledge of the benefits of social support and greater self-awareness. Will continue IOP to increase distress tolerance skills, improve daily functioning, and combat distortions. ? Narrative Note: []
--- NOTE | 2024-06-02 11:15 | BH.SGPN.GN ---
Behaviors/Verbalizations/Mental Status: []Pt alert and oriented, neatly dressed and groomed. Eye contact good. Motor activity appropriate. Speech within normal limits. Affect congruent, mood anxious and frustrated. Thoughts linear, logical, no signs of hallucinations or delusions. Client Response/Progress/Benefit: [] Pt was an active participant throughout AEB contributing to discussion, providing personal examples, and taking notes. Pt processed emotions felt in the activity and how they coped in the moment. Pt provided input during discussion on the types of support our supports can provide. Pt able to identify current support system and barriers that get in the way of using supports by drawing out their own support net. Pt reported after identifying what type of supports they receive; they gained awareness that they could benefit from reinforcing emotional support. Pt plans to do this by continuing to communicate with her boyfriend and work on coping skills. Pt seemed to benefit from identifying the type of support Pt needs to work on improving. Pt recommended to continue IOP tx to promote mood stability, reinforce healthy coping skills, and reduce negative thinking patterns. Narrative Note: []
--- NOTE | 2024-06-06 10:10 | BH.SGPN.GN ---
Behaviors/Verbalizations/Mental Status: [] ?Eye contact is good. Motor activity is appropriate. Appearance is casual. Speech is Appropriate. Mood is depressed/anxious. Affect is congruent. Thoughts are linear and logical. No evidence of psychosis. Client Response/Progress/Benefit: [] ?Pt did well to participate in activity and was engaged and attentive during psychoeducation and interactive discussion on coping skills, why people use unhealthy coping skills, how to replace unhealthy coping skills, and internal vs external coping skills. Attentive and engaged as peers came up with list of negative coping skills including not asking for help, avoidance, isolating, sleeping, shopping, substance use, and several others. Pt reports often turning to avoidance and sleeping which helps short-term but results in increased guilt and stress long-term. Group discussed the effects of how negative coping skills can impact mental health in a negative way. Benefited from increased understanding of unhealthy coping skills and the need for developing healthy internal and external coping skills. Will continue in IOP to prevent decompensation, increase healthy coping skills, and improve functioning. Narrative Note: []
--- NOTE | 2024-06-06 11:10 | BH.SGPN.GN ---
Behaviors/Verbalizations/Mental Status: []Pt alert and oriented, neatly dressed and groomed. Eye contact good. Motor activity appropriate. Speech within normal limits. Affect congruent, mood anxious and content. Thoughts linear, logical, no signs of hallucinations or delusions. Client Response/Progress/Benefit: [] Pt responded well to session, taking notes and contributing when prompted. Group discussed the different categories of coping skills which included distraction, emotional release, grounding, self-love, and thought challenging. Pt participated in creating a coping skills ?menu? from the five categories of coping skills. Pt's coping skill menu included: photography, venting with supports, aromatherapy, giving herself credit, and dialectical thinking. Appeared to benefit from increasing repertoire of healthy coping skills. Will continue IOP tx to prevent decompensation, improve daily functioning, and reduce negative self-talk. Narrative Note: []
--- NOTE | 2024-06-06 15:38 | BH.MDN ---
Multi-Disciplinary Note Note 45-min Individual: Time Started:: 09:15 Date: 06/06/24 Purpose of session/treatment goals addressed:: To work on goal #2 of pt's tx plan. Another goal was to review homework and practice self-compassion. Eye Contact:: Good Motor Activity:: Appropriate Appearance:: Neat Speech:: Appropriate Mood:: Anxious and Depressed Affect:: Full Thoughts:: Linear, Logical and No evidence of hallucinations/delusions noted Staff Interventions:: thought challenging, CBT techniques, mindfulness skills, strengths perspective, goal setting, taught coping skills and other (gave pt homework to reflect on boundaries and ways to create a safe space within herself. ) Client Response:: Pt responded well to session, open to meeting with therapist. Pt reports she is doing okay which pt shared means she is coping overall better than she had been, but her mood is still depressed and she is still having panic attacks. Pt stated she had some difficulty moments this week at work, but pt feels like she coped well. However, some of her work stress led to conflict within her relationship when pt was expressing her anxiety and this led to her boyfriend becoming upset. Pt shared I think it just now sunk in for him that I'll have anxiety all my life. Pt stated she and her boyfriend got into an argument after pt had a panic attack which led pt to verbalize her need for some space outside. Pt shared she was able to calm herself down by going outside to her favorite tree and cry and breathe. Pt stated when she calmed down she went back into and they had a good talk. Pt feels this resolved things, but pt also recognizes that she and her boyfriend could improve on how they support each other when feeling strong emotions. Pt reports she did give him feedback on how to better help her when pt has anxiety or a panic attack. Pt was also encouraged to reflect on boundaries she wants to verbalize with her mother and her boyfriend some day. Pt has expressed that she struggles to know what she needs and with setting boundaries. Pt reports seeing the benefit of reflecting on this as pt wants to create a safe space within herself. Risks/Concerns:: Pt denies any SI, plan, or intent as of 06/06/24. Pt denies any thoughts of . Progress Toward Goals/Plan:: Pt demonstrating progress towards her tx goals AEB pt's report of utilizing healthy coping skills yesterday when pt and her boyfriend got into an argument. Pt stated she used communication, grounding, and self-talk. Pt has been working part-time now for about two weeks and she is enjoying her job and it is also stressful. Pt's symptoms continue to impact her daily functioning and overall mood. Pt will continue IOP tx to prevent decompensation, further increase use of healthy coping skills, and reduce negative self-talk. Time Stopped:: 10:00
--- NOTE | 2024-06-06 15:54 | BH.TPR ---
Treatment Plan Review Demographics Date of Admission:: 05/17/24 Date of Treatment Plan Review:: 06/06/24 Admitting Diagnoses:: Major depressive disorder, recurrent, severe without psychosis F 33.2; Generalized anxiety disorder; Panic disorder; Borderline personality disorder Current Diagnoses:: Major depressive disorder, recurrent, severe without psychosis F 33.2; Generalized anxiety disorder; Panic disorder; Borderline personality disorder Patient Status Patient's Response to Treatment:: Pt has responded well to session AEB consistently attending IOP and engaging in both individual and group therapy sessions. Pt consistently completes homework provided from individual counseling. Pt contributes at times during group discussions, takes notes, appears to listen to others, and engages in group activities. Pt's overall DSM-5 scores have increased since admission, but anxiety has decreased by 11%, anger has decreased by 33%, and SI has decreased by 50% since admission. Status of Current Problems and Symptoms: Pt's depressive symptoms increased since admission and pt reports this could be due to a recent argument with her boyfriend, her grandmother being in the hospital, and adjusting to her new job. Despite her scores increasing, pt continues to report consistent use of healthy coping skills and progress with regulating her emotions. Pt identifies her negative thinking, lack of interest, and negative view of self as her biggest depressive symptoms. Pt also continues to have panic attacks and daily anxiety, but she has been using calming skills and has prevent at least one panic attack. Progress Problem #1: Problem Name:: Depression, hopelessness, worthlessness, and recent suicidal ideation. Status of Goals:: Objective 1- not complete. Pt?s scores for depression have increased since admission (see above) but pt continues to work on applying coping skills. Objective 2- in progress. Pt is working on incorporating more self-compassion and catching negative self-talk. Team Recommendations:: Team recommends continued goals and objectives to reinforce skills and reduce symptoms. Team recommends pt continue working on combating distortions, being more self-compassionate, and communicating openly with closest supports. Problem #2: Problem Name:: Anxiety, panic attacks, and low distress tolerance. Status of Goals:: Objective 1- in progress. Pt is working on increasing her distress tolerance skills by using assertive communication, trying to practice more self-care, and through deep breathing strategies. Objective 2- in progress. Pt?s scores for anxiety have decreased by 11% since admission. Pt reports utilizing grounding skills and practicing affirmations at work. Team Recommendations:: Treatment team encourages pt to continue working on distress tolerance skills and practicing self-care to reduce stress. Pt also encouraged to set boundaries and set realistic expectations for herself at work.
--- NOTE | 2024-06-08 09:07 | BH.SGPN.GN ---
Behaviors/Verbalizations/Mental Status: [] Eye contact fair to good. Motor activity appropriate. Speech within normal limits. Affect congruent, mood anxious and euthymic. Thoughts linear, logical, no signs of hallucinations or delusions. Reviewed client?s symptom tracker, denies SI, plan, or intent as of 06/08/2024. Client Response/Progress/Benefit: [] Client receptive of session, attentive and willing to process with group. Reports improved sx of depression?(1/5) and anxiety (1/5) per daily sx tracker. ?Identified mental health ?win as successfully applying thought challenging and self-compassionate statements when making a mistake at work. Noted reminding herself that mistakes are a normal thing and that she is still in the learning phase of her job. Additional win noted as spending time taking pictures when feeling overwhelmed after a long day. Current stressor identified as finances and worrying she will have to find a higher paying job despite enjoying her current one. Did well to process the pros/cons with the group. Benefitted from encouragement and support of the group. Recommended continued IOP tx to further improve mood stability, promote consistent skill application, improve confidence, as well as prevent decompensation. Narrative Note: []
--- NOTE | 2024-06-08 10:10 | BH.SGPN.GN ---
Behaviors/Verbalizations/Mental Status: [] Eye contact is good. Motor activity is appropriate. Appearance is casual. Speech is Appropriate. Mood is anxious and depressed. Affect is congruent. Thoughts are linear and logical. No evidence of psychosis Client Response/Progress/Benefit: [] Pt an active participant in group discussions. Participated during interactive discussion on defining conflict (internal/external) and possible benefits to conflict. Attentive during psychoeducation on conflict styles (Avoidant, Accommodating, Competing, Cooperative) and engaged during interactive discussion in which peers identified the benefits and consequences to each conflict style. Pt identified their primary conflict style as accommodating. I have a lot of people-pleasing attributes. Benefited from increased awareness of the impact of conflict styles in mental health. Will continue in IOP tx to prevent decompensation/re-admissino to psych unit, stabilize mood, and increase healthy coping skills. Narrative Note: []
--- NOTE | 2024-06-08 11:10 | BH.SGPN.GN ---
Behaviors/Verbalizations/Mental Status: []Eye contact is good. Motor activity is appropriate. Appearance is casual. Speech is Appropriate. Mood is anxious, content. Affect is congruent. Thoughts are linear and logical. No evidence of psychosis. Client Response/Progress/Benefit: [] Pt was an active participant in group discussions and activity. Engaged with peers in activity and identifying healthy ways to approach each conflict scenario. Group discussed various conflict resolution skills that can be useful in addressing conflict outside of IOP. Benefited from practicing and learning conflict resolution skills during group activity. Able to identify areas pt wants to work on to improve how pt manages conflict both internally and externally. Expressed wanting to work on their stonewalling and defensiveness by taking time to regulate their emotions before addressing an issue. Will continue in IOP to stabilize mood, combat distortions, and improve daily functioning. ? Narrative Note: []
--- NOTE | 2024-06-09 09:00 | BH.SGPN.GN ---
Behaviors/Verbalizations/Mental Status: [] Pt alert and oriented, neatly dressed and groomed. Eye contact good. Motor activity appropriate. Speech within normal limits. Affect congruent, mood tired and euthymic.. Thoughts linear, logical, no signs of hallucinations or delusions. Reviewed pt?s symptom tracker, no risk for suicidal ideation, plan, or intent 06/09/24 Client Response/Progress/Benefit: []Pt responded well to session, attentive and engaged. Pt reports feeling calm and sleepy this morning after having a lazy bones day with my boyfriend. Pt shared one of her wins today is that she and her boyfriend had a fight, but pt stated it turned into something productive and they were able to work through it. Pt stated her stressor today is that her boyfriend is going away for a weekend and pt is worried about how she will fill her time without him. The group offered ideas and encouraged pt to use this time to get back into old hobbies. Pt appeared to benefit from reflecting on progress and connecting with peers. Pt will continue IOP tx to increase emotional regulation skills, reduce intensity of anxiety, and improve daily functioning. Narrative Note: []
--- NOTE | 2024-06-09 10:15 | BH.SGPN.GN ---
Behaviors/Verbalizations/Mental Status: []Patient was alert and oriented, casually dressed and groomed. Eye contact was good, motor activity normal, speech within normal limits. Affect congruent, mood calm. Thoughts linear, logical, no signs of hallucinations or delusion Client Response/Progress/Benefit: []Pt participated in the group discussions AEB providing input and taking notes. Attentive during psychoeducation Goal Setting. Participated during the discussion on common barriers and pt identified some personal barriers as negative self-talk and lack of organization. Group also identified benefits of goals as sense of purpose, improved self-confidence, more motivation for other goals, and improved mental health. Benefited from increased awareness of mental health benefits of goals as well as psychoeducation on SMART goal criteria. Will continue in IOP to improve mood stability, reduce negative thinking patterns and improve confidence, and prevent decompensation. ? Narrative Note: []
--- NOTE | 2024-06-09 11:15 | BH.SGPN.GN ---
Behaviors/Verbalizations/Mental Status: []Pt alert and oriented, casually dressed and groomed. Eye contact good. Motor activity appropriate. Speech within normal limits. Affect congruent, mood euthymic. Thoughts linear, logical, no signs of hallucinations or delusions. Client Response/Progress/Benefit: [] Pt was engaged during discussion and willing to complete the worksheet challenging them to develop a personal SMART goal. Pt chose the goal of doing at least once self-care activity everyday. Pt stated time as a potential barrier. Identified solution as choosing a short activity. Benefited from this group by developing a short-term SMART goal related to mental health. Will continue IOP tx to increase consistent use of healthy coping skills, challenge distortions, and prevent decompensation.
--- NOTE | 2024-06-13 09:05 | BH.SGPN.GN ---
Behaviors/Verbalizations/Mental Status: [] Eye contact is good. Motor activity is appropriate. Appearance is casual. Speech is Appropriate. Mood is depressed. Affect is congurent. Thoughts are linear and logical. No evidence of psychosis. Reviewed daily check in sheet and no reports of suicidal ideations or intent. Client Response/Progress/Benefit: [] Pt was an active participant in group discussions. Attentive. Daily symptom tracker notes 3/5 for depression and 2/5 for irritability. Emotion for today is tired. She reports that she has been working consistently at her job and attending IOP which has resulted in being more tired. Despite this she reports doing well. She is not severely depression, is not ruminating, and overall is more hopeful. Her BF has been out of town since this weekend and states surprisingly I'm not lonely. Progress noted. Benefited from group support, encouragement, and feedback. Will continue in IOP to maintain safety, prevent decompensation/re-admission, and increase healthy functioning. Narrative Note: []
--- NOTE | 2024-06-13 10:10 | BH.SGPN.GN ---
Behaviors/Verbalizations/Mental Status: []Pt alert and oriented, casually dressed and groomed. Eye contact good. Motor activity appropriate. Speech within normal limits. Affect congruent, mood content, anxious. Thoughts linear, logical, no signs of hallucinations or delusions. Client Response/Progress/Benefit: []Pt was an active participant in group discussion and activity. Attentive during psychoeducation. Along with peers, pt was able to identify barriers to taking action in their life. Identified several symptoms and stressors that pt feels are holding them back from progress such as self-doubt, people pleasing and unrealistic expectations. Stated these things have kept pt from loving herself and reaching her goals. Pt shared that she wants to begin addressing self-doubt/low self-esteem. Benefited from increased self-awareness of obstacles. Will continue IOP tx to prevent decompensation, improve self-confidence, and maintain mood stability. Narrative Note: []
--- NOTE | 2024-06-13 11:10 | BH.SGPN.GN ---
Behaviors/Verbalizations/Mental Status: []Pt alert and oriented, casually dressed and groomed. Eye contact good. Motor activity appropriate. Speech within normal limits. Affect congruent, mood euthymic. Thoughts linear, logical, no signs of hallucinations or delusions. Client Response/Progress/Benefit: [] Pt responded well to session, taking notes and participating in worksheet discussion. Pt connected with the discussion on motion vs action steps, and this helped pt learn how to set goals differently. Pt set a goal to decrease self-doubt. Pt identified motion steps including starting pros/cons list about job and coming up with positive affirmations. Pt also made action steps which included completing pros/cons list and adding one affirmation to bathroom mirror. Appeared to benefit from identifying a small goal to benefit mental health. Client is to continue IOP to improve distress tolerance, challenge distortions, and prevent decompensation.
== END 2024-06-14 23:59 ==
LOC: BHIOP 08:00
PROVIDERS: Referring Provider Psychiatry & Neurology Psychiatry; Visit Provider Psychiatry & Neurology Psychiatry
DX: F33.2 Major depressive disorder, recurrent severe without psychotic features (principal); F41.1 Generalized anxiety disorder; F41.0 Panic disorder [episodic paroxysmal anxiety]; G43.809 Other migraine, not intractable, without status migrainosus; Z79.899 Other long term (current) drug therapy
CPT/HCPCS: 90792; 99213; H2012; H2020; S9480; T1002; 90834

== ENCOUNTER 2024-06-15 07:14 | Outpatient (RCR) | payer MEDICAID, SELFPAY ==
[2024-06-15 00:25] VITALS: BP 132/88; PULSE 83
--- NOTE | 2024-06-15 10:10 | BH.SGPN.GN ---
Behaviors/Verbalizations/Mental Status: [] Eye contact is good. Motor activity is appropriate. Appearance is casual. Speech is Appropriate. Mood is anxious. Affect is congruent. Thoughts are linear and logical. No evidence of psychosis. Client Response/Progress/Benefit: [] Pt was an engaged participant AEB listening attentively to others, taking notes, and providing feedback in small group discussions. Attentive during psychoeducation AEB by note taking and providing some input. Pt worked along with peers in small groups to define inappropriate guilt and appropriate guilt. Interactive discussion on examples of both inappropriate and appropriate guilt. Pt able to connect impact inappropriate guilt can have on MH. Benefited from increased awareness of guilt and the differences between appropriate and inappropriate guilt. Plan is to continue with IOP to maintain safety, prevent decompensation/re-admission to psych unit, and to improve functioning. Narrative Note: []
--- NOTE | 2024-06-15 10:47 | BH.MDN_ITS ---
Multi-Disciplinary Note Note 60-min Individual: Time Started:: 09:05 Date: 06/15/24 Purpose of session/treatment goals addressed:: To work on goal #2 of pt's tx plan. Another goal was to process current stressors and problem-solve solutions. Eye Contact:: Good Motor Activity:: Appropriate Appearance:: Casual Speech:: Appropriate Mood:: Anxious and Depressed Affect:: Congruent Thoughts:: Logical, Racing and No evidence of hallucinations/delusions noted Staff Interventions:: thought challenging, motivational interviewing, CBT techniques, strengths perspective, goal setting and other (discussed Maslow's Hierarchy of Needs. ) Client Response:: Pt responded well to session, open to meeting with therapist. Pt reports feeling very stressed this morning due to work and finances. Pt shared on the drive here pt got a notification about a bill that is due soon and pt is unable to pay it. Pt is working, but pt shared part-time income is barely covering rent, food, etc. Pt has reached out to family in the past, but pt does not want to keep doing this. Pt shared she also feels a little pride too that keeps me from getting more help. Processed this and pt reports she knows she is worthy of assistance from supports and government agencies. Pt learned about different services that child support case officer could help pt with and pt was receptive to bringing it up to her psych provider today. Pt also connected with Maslow's Hierarchy of Needs, recognizing that it is hard for pt to practice self-compassion, boundaries, etc, when she is constantly worried about money. Pt set a goal to write out the bills that need paid each month and when they are due, so pt and her boyfriend can both know instead of just pt. Pt completed her homework from last session which was identifying things that would promote an internal safe haven. Pt identified knowing my limits, boundaries with politics, no self-deprecating humor, setting boundaries, and self-care. Pt shared the only one she does well with is boundaries with politics. Pt stated I really don't know my limits so pt spent time exploring these. Some of the limits pt identified included no aggressiveness at home (verbally and physically), mutual respect, not being mean/rude, and fairness. Pt shared she struggles with expressing these limits with her boyfriend because she often feels like a burden. Pt also shared she feels responsible for her boyfriends emotions, so pt plans to work on being assertive and stating I'm here to help you, please tell me what you need. Risks/Concerns:: Pt denies any active SI, plan, or intent. No report of thoughts of . Progress Toward Goals/Plan:: Pt is making mild progress towards her tx goals as pt is consistent with attendance and homework, but pt's external stressors are impacting pt's ability to make significant progress currently. Pt not having her basic needs met due to finances causes significant anxiety and feelings of dread. Pt was encouraged to talk with psych provider today to get connected with case management services. Pt will continue IOP tx to prevent decompensation, increase distress tolerance skills, and improve daily functioning. Time Stopped:: 10:05
--- NOTE | 2024-06-15 11:15 | BH.SGPN.GN ---
Behaviors/Verbalizations/Mental Status: []Pt alert and oriented, casually dressed and groomed. Eye contact good. Motor activity appropriate. Speech within normal limits. Affect congruent, mood content, euthymic. Thoughts linear, logical, no signs of hallucinations or delusions. Client Response/Progress/Benefit: []Pt engaged participant AEB listening attentively to others and providing input throughout group. Pt worked within their small group to identify strategies to manage inappropriate guilt. Identified a personal example of inappropriate guilt as ?staying in a job and not taking a better opportunity just because they are short staffed? Insight cues a feeling of ?fear of disappointing them or making them uncomfortable? Pt wants to work on combatting inappropriate guilt by correcting the irrational beliefs. Pt seemed to benefit from learning about strategies to manage appropriate and inappropriate guilt. Pt continue in IOP tx to prevent decompensation, maintain gains and promote continued mood stability. ? Narrative Note: []
--- NOTE | 2024-06-16 09:05 | BH.SGPN.GN ---
Behaviors/Verbalizations/Mental Status: [] Pt alert and oriented, neatly dressed and groomed. Eye contact good. Motor activity appropriate. Speech within normal limits. Affect congruent, mood anxious and depressed. Thoughts linear, logical, no signs of hallucinations or delusions. Reviewed pt?s symptom tracker, no risk for suicidal ideation, plan, or intent 06/16/24 Client Response/Progress/Benefit: []Pt responded well to session, attentive and engaged. Pt reports feeling hopeless this morning due to financial stress that has been impacting pt and her boyfriend for months. Pt stated she did make an appointment with a community agency to get connected with case management. Pt also had a psych appointment yesterday and they adjusted a medication. Pt shared her biggest win today is that pt practiced self-compassion yesterday instead of beating herself up for stressors. Pt appeared to benefit from reflecting on progress and connecting with peers. Pt will continue IOP tx to increase distress tolerance skills, reduce intensity of anxiety, and improve daily functioning. Narrative Note: []
--- NOTE | 2024-06-16 10:25 | BH.SGPN.GN ---
Behaviors/Verbalizations/Mental Status: []Pt alert and oriented, casually dressed and groomed. Eye contact good. Motor activity appropriate. Speech within normal limits. Affect congruent, mood content. Thoughts linear, logical, no signs of hallucinations or delusions. Client Response/Progress/Benefit: [] Pt took notes and contributed throughout group discussion and interactive activity. Attentive during psychoeducation on fixed mindset and how a fixed mindset can impact mental health, resilience, and relationships. Participated during the interactive group discussion on fixed mindset in which group verbalized their current fixed mindsets and how they affect their mental health. Pt shared common fixed mindset thoughts they have which included I?ll never look how I want to?, ?I'll never be good at sports?. These thoughts lead to giving up or not trying, low self-esteem and poor body-image, and comparing self to others. Pt benefited from increased awareness of growth mindset and fixed thoughts and how fixed thoughts impact their mental health. Will continue IOP tx to prevent decompensation, improve mood stability, and gain healthy coping skills. Narrative Note: []
--- NOTE | 2024-06-16 11:15 | BH.SGPN.GN ---
Behaviors/Verbalizations/Mental Status: []Pt alert and oriented, casually dressed and groomed. Eye contact good. Motor activity appropriate. Speech within normal limits. Affect congruent, mood anxious. Thoughts linear, logical, no signs of hallucinations or delusions. Client Response/Progress/Benefit: [] Pt was an active participant during activity and discussion. Pt did well to remain attentive and participate as group worked on identifying characteristics and benefits of adopting a growth mindset. Worked with fellow participants in reframing the example fixed thoughts into growth mindset thoughts. Pt worked on changing own fixed thought and reframed the thought to ?I can learn to love myself and my body. Who says what is beautiful? Pt appeared to benefit from challenging own thoughts and engaging in the activity. Pt will continue IOP tx to promote use of healthy coping skills, build confidence, and prevent decompensation.
--- NOTE | 2024-06-19 09:00 | BH.SGPN.GN ---
Behaviors/Verbalizations/Mental Status: [] Pt alert and oriented, neatly dressed and groomed. Eye contact good. Motor activity appropriate. Speech within normal limits. Affect congruent, mood hopeful and anxious. Thoughts linear, logical, no signs of hallucinations or delusions. Reviewed pt?s symptom tracker, no risk for suicidal ideation, plan, or intent 06/19/24 Client Response/Progress/Benefit: []Pt responded well to session, attentive and engaged. Pt reports feeling hopeful and scared this morning. Pt shared she has done things to help get more resources for her financial stress, but pt still worries. Pt shared she is also doing better with being assertive at work and this is giving pt hope. Pt stated she became overstimulated a few times this weekend, but she used grounding skills and they were helpful. Pt also shared having one of her medications adjusted has given her some energy back. Pt appeared to benefit from peer support and feedback. Pt will continue IOP tx to promote gains, reduce negative thinking patterns, and improve daily functioning. Narrative Note: []
--- NOTE | 2024-06-19 10:10 | BH.SGPN.GN ---
Behaviors/Verbalizations/Mental Status: []Pt alert and oriented, causally dressed and groomed. Eye contact good. Motor activity appropriate. Speech within normal limits. Affect congruent, mood euthymic. Thoughts linear, logical, no signs of hallucinations or delusions. Client Response/Progress/Benefit: [] Pt was actively engaged, providing input, and taking notes throughout session. Connected with the topic of pitfalls and listened to group discussion on internal and external barriers that prevent from choosing a healthier path to mental wellness. Group worked together to identify examples of personal internal pitfalls. Engaged in activity and worked cooperatively with peers. Shared personal pitfalls to include poor boundaries, avoidance, and negative thinking. Pt engaged in learning about the difference between external triggers and self-sabotaging behaviors. Seemed to benefit from increased awareness of personal pitfalls. Pt will continue IOP tx to promote healthy coping skills, challenge distortions, build confidence, and prevent decompensation.
--- NOTE | 2024-06-19 11:15 | BH.SGPN.GN ---
Behaviors/Verbalizations/Mental Status: []Pt alert and oriented, casually dressed and groomed. Eye contact good. Motor activity appropriate. Speech within normal limits. Affect congruent, mood anxious during activity, content otherwise. Thoughts linear, logical, no signs of hallucinations or delusions. Client Response/Progress/Benefit: [] Pt receptive of session, engaged throughout AEB actively contributing and listening to discussion, as well as taking notes. Pt participated in the experiential activity and processed with group how their emotions, perspective, and reactions positively and negatively impacted the outcome. Pt identified pitfalls they struggle with and shared wanting to work on pitfall of isolation by challenging herself to more consistently reach out to supports outside of her boyfriend. Benefited from identifying personal pitfalls and strategies to overcome these pitfalls. Will continue IOP tx to prevent decompensation, continue to improve daily functioning, and promote mood stability. Narrative Note: []
--- NOTE | 2024-06-22 08:28 | BH.MDN_ITS ---
Multi-Disciplinary Note Note 60-min Individual: Time Started:: 10:40 Date: 06/22/24 Purpose of session/treatment goals addressed:: To work on goal #2 of pt's tx plan. Another goal was to review defense mechanisms associated with borderline personality disorder and to discuss upcoming family session. Eye Contact:: Good Motor Activity:: Appropriate Appearance:: Neat Speech:: Appropriate Mood:: Euthymic and Anxious Affect:: Full Thoughts:: Linear, Logical and No evidence of hallucinations/delusions noted Staff Interventions:: thought challenging, psychoeducation on: (defense mechanisms), CBT techniques, mindfulness skills, strengths perspective, goal setting and other (discussed goals for family session.) Client Response:: Pt responded well to session, open to meeting with therapist. Pt reports her boyfriend was away for a wrestling match the other day and pt spent the night to myself and I felt happy being alone. This is significant for pt as she has been struggling with anxiety which triggers irrational thoughts that her boyfriend is cheating. This anxiety leads to pt seeking reassurance and not wanting to ever be alone. Pt shared she was able to engage in some of her hobbies and clean which pt had not been able to do recent ly by herself. Pt shared there is a certain situation bothering her regarding her boyfriend and pt benefitted from processing this. Pt's stated her boyfriend came home two hours late the other day and when she asked where he was this triggered a fight. Pt receptive to thought challenging as well as plan to bring up communication with her boyfriend next week during their family session. Pt wanted to work more of her borderline personality symptoms and pt was receptive to defense mechanisms. Pt identified some of her maladaptive defense mechanisms as projection, denial, and devaluizing people. Pt shared these defense mechanisms impact her friends more than her intimate relationships. Pt stated if someone does one thing wrong I cut them off. Discussed how defense mechanisms are formed and how pt can begin to adjust her responses to her initial reactions to triggers and stressors. Risks/Concerns:: Pt denies any suicidal ideations, plan, or intent. Pt denies any thoughts of . Progress Toward Goals/Plan:: Pt continues to make progress towards tx goals AEB pt's self-report of utilizing healthy coping skills outside of IOP tx. Pt's anxiety continues to be high and her biggest trigger/stressor is finances. Pt's energy levels are starting to improve after a medication change which has helped pt be more productive at home. Pt continues to be consistent and engaged in group and individual sessions. Pt will continue IOP tx to promote mood stability, increase self-confidence, and combat distortions. Time Stopped:: 11:35
--- NOTE | 2024-06-22 09:05 | BH.SGPN.GN ---
Behaviors/Verbalizations/Mental Status: [] Pt alert and oriented, neatly dressed and groomed. Eye contact good. Motor activity appropriate. Speech within normal limits. Affect congruent, mood euthymic. Thoughts linear, logical, no signs of hallucinations or delusions. Reviewed pt?s symptom tracker, no risk for suicidal ideation, plan, or intent 06/22/24 Client Response/Progress/Benefit: []Pt responded well to session, attentive and engaged. Pt reports feeling relieved this morning because your girl got a break. Pt shared one of her biggest wins today is that she and her boyfriend got financial help from family to help pay bills they have been behind on. Pt shared this has significantly reduced pt's stress which will help pt focus on her other mental health goals. Pt shared work is also going well and she is feeling more confident. Pt's stressor today is I'm happy so I'm anxious it's not going to last. This led to a good discussion of the importance of accepting that all emotions come and go and that is not a bad thing. Pt appeared to benefit from connecting with peers, reflecting on their progress, and gaining perspective. Pt will continue IOP tx to promote mood stability, combat distortions, and increase self-confidence. Narrative Note: []
--- NOTE | 2024-06-22 11:10 | BH.SGPN.GN ---
Behaviors/Verbalizations/Mental Status: [] Eye contact is good. Motor activity is appropriate. Appearance is casual. Speech is Appropriate. Mood is anxious and euthymic. Affect is congruent. Thoughts are linear and logical. No evidence of psychosis. Client Response/Progress/Benefit: [] Pt was an engaged participant in group discussion and activity. Worked with group to identify strategies to help overcome barriers and obstacles to desired reality. Group developed strategies for the common barriers. Identified personal barriers to desired reality and choose one obstacle to work. Pt stated she wants to work on barrier of people pleasing by starting with recognizing her own worth. Pt seemed to benefit from increased repertoire of healthy coping skills/strategies to overcome common barriers to moving forward. Pt is to continue IOP to improve self-confidence, promote mood stability, and prevent decompensation. Narrative Note: []
--- NOTE | 2024-06-23 09:00 | BH.SGPN.GN ---
Behaviors/Verbalizations/Mental Status: [] Client alert and oriented, casual appearance. Eye contact good. Motor activity appropriate. Speech within normal limits. Affect congruent, mood anxious. Thoughts linear, logical, no signs of hallucinations or delusions. Reviewed client's symptom tracker, no risk for suicidal ideation, plan, or intent. Client Response/Progress/Benefit: [] Client responded well to session AEB listening to others and sharing thoughts/feelings. Client reported mental health positive is her boyfriend's family member is helping them cover their rent this month which has been a significant stressor for her. Client stated knowing the rent is going to be paid is helping decrease her stress significantly. Client reported her current stressor/positive is having a planned hangout with a friend from her old work, but having the desire to cancel. Client receptive to feedback from group.Appeared to benefit from support from peers. Will continue IOP tx to promote consistent use of healthy coping skills, challenge distortions, and prevent decompensation.
--- NOTE | 2024-06-23 10:10 | BH.SGPN.GN ---
Behaviors/Verbalizations/Mental Status: []Pt alert and oriented, casually dressed and groomed. Eye contact good. Motor activity appropriate. Speech within normal limits. Affect congruent, mood content and anxious. Thoughts linear, logical, no signs of hallucinations or delusions. ? Client Response/Progress/Benefit: []Pt responded well to session, attentive and engaged. Pt participated in activity where pts had to guess the celebrity with a known mental health diagnosis and this led to discussion on self-stigma. Group participated in the discussion defining stigma as well as what stigma has kept pt's from doing in their lives. Pt stated mental health stigma has led pt to not being confident in herself and assuming her diagnosis made her less than, ultimately reinforcing depression. Pt worked with peers to begin discussion of what reinforces stigma and this was discussed further in the next group. Pt appeared to benefit from learning about the different types of stigma as well as gaining awareness of how stigma as personally impacted pt. Pt will continue in IOP tx to promote mood stability, improve healthy boundary setting, and prevent decompensation. Narrative Note: []
--- NOTE | 2024-06-23 11:10 | BH.SGPN.GN ---
Behaviors/Verbalizations/Mental Status: []Pt alert and oriented, neatly dressed and groomed. Eye contact good. Motor activity appropriate. Speech within normal limits. Affect congruent, mood euthymic. Thoughts linear, logical, no signs of hallucinations or delusions. Client Response/Progress/Benefit: [] Pt engaged participant AEB participating in the activity, providing input during small group discussion, and listening attentively to others. Pt appeared to connect with discussion in the benefits of addressing mental health stigma which included: improved relationships, increased willingness to seek help, increased happiness, and improved confidence. Group brainstormed strategies to combat social and perceived stigma. Pt identified that they can contribute to stigma by using negative self-talk and making self-deprecating jokes. Pt shared one thing pt can do to combat stigma is ?working on catching and my negative self-talk and being more compassionate.? Appeared to benefit from increasing awareness of strategies to combat stigma. Will continue IOP tx to promote mood stability, increase self-confidence, and reduce negative self-talk. Narrative Note: []
--- NOTE | 2024-06-27 09:00 | BH.SGPN.GN ---
Behaviors/Verbalizations/Mental Status: [] Eye contact fair to good, pt looking down as other participants shared however made eye contact when his turn. Motor activity appropriate. Speech within normal limits. Affect congruent, mood content. Thoughts linear, logical, no signs of hallucinations or delusions. Reviewed client?s symptom tracker, denies SI, plan, or intent as of 06/27/2024. Client Response/Progress/Benefit: [] Client receptive of session, attentive and willing to process with group. Reports improved sx of depression?(0/5) and ongoing anxiety (1/5) per daily sx tracker. ?Identified mental health ?win as successfully completing several errands without feeling exhausted or depleted. Pt reports an additional win as receiving positive feedback from her employer about pt's performance. Noted this aided in challenging use of personalization when her employer has made critical comments in the past. Current stressor identified as feeling her mother is upset with her for not helping as much as she would like with care taking duties for her grandmother. expressed a difference in expectations and shared wanting to discuss this further with her mom but is nervous to do so. Benefitted from encouragement, feedback/suggestions, and support of the group. Recommended continued IOP tx to further improve mood stability, promote consistent skill application, well as prevent decompensation. Narrative Note: []
--- NOTE | 2024-06-27 10:05 | BH.SGPN.GN ---
Behaviors/Verbalizations/Mental Status: [] Client alert and oriented, casually dressed and groomed. Eye contact good. Motor activity appropriate. Speech within normal limits. Affect congruent, mood euthymic. Thoughts linear, logical, no signs of hallucinations or delusions. Client Response/Progress/Benefit: [] Client responded well to session AEB actively participating throughout group. Client was attentive throughout group activity discussing famous individuals and how they overcame failure to be successful. Client helped group identify how fear of failure can impact mental health and relationships. Client personally identified it leads to missing out, not growing, and hurt confidence. Client participated in experiential activity, working with group members to problem solve. Appeared to benefit from increased knowledge of fear of failure. Will continue IOP tx to improve self image, prevent decompensation, and increase self care. Narrative Note: []
--- NOTE | 2024-06-27 11:10 | BH.SGPN.GN ---
Behaviors/Verbalizations/Mental Status: [] Client alert and oriented, casually dressed and groomed. Eye contact good. Motor activity appropriate. Speech within normal limits. Affect congruent, mood euthymic. Thoughts linear, logical, no signs of hallucinations or delusions. Client Response/Progress/Benefit: [] Client responded well to session, engaged in the experiential activity and attentive throughout group processing. Client reported fear of failure has kept client from trying new things. Client completed fear of failure worksheet and was able to identify thoughts and behaviors that reinforce personal fear of failure including catastrophizing, perfectionism, fear of people being critical of her. Client participated in small group discussion regarding strategies to overcome fear of failure. Identified wanting to work on combating intrusive thoughts with logic, utilizing good supports and positive self talk. Appeared to benefit from increased knowledge of strategies to combat fear of failure and gaining self-awareness. Client will continue IOP tx to promote gains in reduced depressive symptoms and prevent decompensation. Narrative Note: []
--- NOTE | 2024-06-27 14:25 | BH.MDN_ITS ---
Multi-Disciplinary Note Note Family: Time Started:: 12:10 Date: 06/27/24 Purpose of session/treatment goals addressed:: To bring pt's support person in for psychoeducation, address any relationship triggers impacting pt's mental health, and to improve support in general. Eye Contact:: Fair Motor Activity:: Appropriate Appearance:: Neat Speech:: Appropriate Mood:: Anxious Affect:: Congruent Thoughts:: Linear, Logical and No evidence of hallucinations/delusions noted Staff Interventions:: thought challenging, psychoeducation on: (attachment styles), CBT techniques, mindfulness skills, strengths perspective, goal setting and other (communication skills, dialectical thinking, conflict resolution.) Client Response:: Pt and her boyfriend responded well to session, open to meeting with therapist. Pt's goals for session included ways for him to be a better support, validating me when I'm anxious, and communication. Pt's boyfriends goals were similar and he wanted to also talk about balancing all the things in their life. Discussed what is currently helping pt's mental health within their relationship. This included: having fun together, being a team, mostly having good communication, and willingness to work together. Discussed c urrent barriers/sources of conflict which included: vague communication, differences in personality which impacts expectations at times, and difficulty providing support when one or both have strong emotions. Both were receptive to working on these barriers and by processing these it helped the couple identify what they can do differently. Pt able to express her needs including her desire to get more specific communication so pt's expectations can be adjusted and her anxiety can decrease. The couple came up with a different way to communicate when her boyfriend is coming home from work. Also discussed the importance of validating each other's perspective and emotions before talking about solutions. Pt and boyfriend were also able to identify other small adjustments they can make when they disagree including focusing on the [place] and finding a common ground. Risks/Concerns:: Pt denies any active SI, plan, or intent. Pt denies any thoughts of . Progress Toward Goals/Plan:: Pt continues to report progress towards tx goals and is demonstrating progress in IOP AEB her reduction of depressive sympt oms. Pt also reports her energy is improving. Pt's biggest stressor is still money and financial strain that impacts pt's mental health and her romantic relation. Pt's anxiety is improving, but pt still reports anxiety most days. Pt's functioning is improving with her medication change and use of healthy coping skills. Pt will continue IOP tx to promote mood stability, increase distress tolerance skills, and improve self-confidence. Time Stopped:: 13:10
--- NOTE | 2024-06-29 09:05 | BH.SGPN.GN ---
Behaviors/Verbalizations/Mental Status: [] Client alert and oriented, casually dressed and groomed. Eye contact good. Motor activity appropriate. Speech within normal limits. Affect congruent, mood euthymic. Thoughts linear, logical, no signs of hallucinations or delusions. Reviewed client?s symptom tracker, no risk for suicidal ideation, plan, or intent as of 06/29/24. Client Response/Progress/Benefit: [] Client responded well to session, offering ideas to peers and providing encouragement. Client reports feeling stressed this morning as client discussed the trigger of her emotion being her mother. Client went on to discuss how she feels her mom does not respect or care about her feelings with telling her things she needs to do for her without asking. Client discussed historic struggle of setting boundaries with her mom due to the backlash and guilt tripping that comes with it. Client reported a mental health win of the positives that came from a family session she had with her partner. Described the progress they have made together with increases in positive communication. Client appeared to benefit from reflecting on her growth and receiving validation from group members. Client will continue IOP tx to increase management of anxiety symptomatology and prevent decompensation. Narrative Note: []
--- NOTE | 2024-06-29 10:10 | BH.SGPN.GN ---
Behaviors/Verbalizations/Mental Status: []Pt alert and oriented, neatly dressed and groomed. Eye contact good. Motor activity appropriate. Speech within normal limits. Affect congruent, mood euthymic. Thoughts linear, logical, no signs of hallucinations or delusions. Client Response/Progress/Benefit: []Pt was an active participant in group discussion. Attentive during psychoeducation on the CBT [place] (Thoughts, Behaviors, Emotions). Engaged in group discussion on how thoughts and behaviors can contribute to maintaining adverse feelings, such as depression, anxiety, and irritability. Completed worksheet in which pt identified a thought that is keeping them stuck or is in obstacle to increased mental wellness. The thoughts that pt identified were ?I?m not good enough, they?re going to leave when they find out I?m no good, and I?m too much.? Shared this maintains depression and anxiety cycles. Pt benefited from increased awareness of the basis of CBT therapy as well as specific thoughts that are impacting pt's progress. Will continue in IOP to promote mood stability, increase distress tolerance, and reinforce healthy coping skills. Narrative Note: []
--- NOTE | 2024-06-29 11:10 | BH.SGPN.GN ---
Behaviors/Verbalizations/Mental Status: []Pt alert and oriented, neatly dressed and groomed. Eye contact good. Motor activity appropriate. Speech within normal limits. Affect congruent, mood euthymic. Thoughts linear, logical, no signs of hallucinations or delusions. Client Response/Progress/Benefit: [] Pt responded well to session, contributing to discussion and attentive throughout discussion. Pt identified a negative thought that has kept them stuck. Pt's thought was I?m not good enough.? Pt reported when they think this way, pt shuts down, ruminates, and self-sabotages. Pt worked to reframe the thought by finding more rational, realistic ways to look at the thoughts and then processed them within group setting. Pt reframed the thought to ?I don?t have to believe this thought, it?s my brain trying to trick me.? Pt appeared to benefit from practicing challenging negative thinking with peers and gaining coping skills. Pt will continue IOP tx to promote mood stability, increase distress tolerance, and further increase self-confidence. Narrative Note: []
--- NOTE | 2024-06-30 09:00 | BH.SGPN.GN ---
Behaviors/Verbalizations/Mental Status: [] Eye contact good. Motor activity appropriate. Speech within normal limits. Affect congruent, mood anxious and content. Thoughts linear, logical, no signs of hallucinations or delusions. Reviewed client?s symptom tracker, denies SI, plan, or intent as of 06/30/2024. Client Response/Progress/Benefit: [] Client receptive of session, attentive and willing to process with group. Reports improved sx of depression?(1/5) and anxiety (1/5), per daily sx tracker. ?Identified mental health ?win as following through with plans to get coffee with a former co-worker. Shared that she had been struggling with putting it off out of fear, but finally used opposite action to meet up with them. Reports that she is glad she did so as it felt much more supportive and validating than she had expected, as well as reassured pt's decision to leave her previous position. Pt identified an additional win as taking the remainder of the day following this to engage in self-care so she feels relaxed and rested enough when returning to work tomorrow. Stressor noted as needing to have her phone looked at but is avoiding going to the store as her ex works there. Did well to problem solve with the group and challenge avoidance urges and thought distortions reinforcing her anxiety. Benefitted from encouragement, suggestions, and support of the group. Recommended continued IOP tx to further improve mood stability, promote improved distress tolerance skill application, well as prevent decompensation. Narrative Note: []
--- NOTE | 2024-06-30 10:10 | BH.SGPN.GN ---
Behaviors/Verbalizations/Mental Status: [] Eye contact is good. Motor activity is appropriate. Appearance is casual. Speech is Appropriate. Mood is euthymic. Affect is congruent. Thoughts are linear and logical. No evidence of psychosis. Client Response/Progress/Benefit: [] Client was an active participant during interactive group discussions. Attentive during psychoeducation on the six types of boundaries (physical, emotional, intellectual, sexual, time, and material) AEB note-taking and input. Along with peers contributed to interactive discussion on defining what a boundary is in mental health. Client along with peers identified challenges to setting boundaries which included; fear of other's response, wanting to people please, fear of rejection, losing relationships, etc. Client along with peers identified the benefits to setting boundaries such as better mental health, strengthen relationships, increased time for self-care, and increased confidence.Client discussed setting a boundary with her brother and how much better the conversation went compared to her fears about how he would respond. Group discussed the mental health benefits to establishing boundaries at work, school, and home. Client benefited from increased awareness and insight on the importance/benefit to setting health boundaries. Will continue in IOP to prevent decompensation, increase emotional regulation skills, and improve functioning. Narrative Note: []
--- NOTE | 2024-06-30 11:10 | BH.SGPN.GN ---
Behaviors/Verbalizations/Mental Status: [] Eye contact is good. Motor activity is appropriate. Appearance is casual. Speech is Appropriate. Mood is euthymic. Affect is congruent. Thoughts are linear and logical. No evidence of psychosis. Client Response/Progress/Benefit: [] Client responded well to session AEB listening attentively to peers, providing input, as well as taking notes throughout. Reports connecting most with flexible and porous style of boundary setting, identifying that her use of style depends on the relationship she has with that person. Participated in group discussion brainstorming various strategies for improving healthy boundary setting. Client reports wanting to view boundary setting as a form of self to increase its use. Seemed to benefit from increased awareness of how different boundary styles can impact mental health. Will continue IOP tx to increase functioning, anxiety management, and prevent decompensation. Narrative Note: []
--- NOTE | 2024-07-04 09:05 | BH.SGPN.GN ---
Behaviors/Verbalizations/Mental Status: [] Eye contact is good. Motor activity is appropriate. Appearance is casual. Speech is Appropriate. Mood is euthymic. Affect is full. Thoughts are linear and logical. No evidence of psychosis. Reviewed daily check in sheet and no reports of suicidal ideations or intent. Client Response/Progress/Benefit: [] Pt was an active participant in group discussions. Attentive. Able to identify mental health wins and healthy habits. She is continuing to work as well as complete healthy coping skills. Set boundaries and advocated for herself at work. Feeling more confident in herself. She had set goal to start a job and be consistent since her hospitalization and she has succeeded as she has worked for the past 4 weeks. She feels that she is ready to pursue a job with more responsibilities and pay. Progress noted. Benefited from group support, encouragement, and feedback. Will continue in IOP to maintain safety, prevent decompensation, and increase healthy coping skills. Narrative Note: []
--- NOTE | 2024-07-04 10:10 | BH.SGPN.GN ---
Behaviors/Verbalizations/Mental Status: [] Eye contact is good. Motor activity is appropriate. Appearance is casual. Speech is Appropriate. Mood is anxious and content. Affect is congruent. Thoughts are linear and logical. No evidence of psychosis. Client Response/Progress/Benefit: [] Client receptive to session AEB listening attentively to others and taking notes. Pt attentive and contributing throughout psychoeducation on the cognitive triangle and maintenance cycles. Pt engaged during group discussion reviewing the impact of daily activities and behaviors in either reinforcing unhealthy maintenance cycles and depression or assisting in reducing symptoms (?down? vs ?up? activities). Client identified personal ?down? activities they engage in as: isolating, napping, task avoidance, and skipping self-care. Attentive during discussion on Common ?Up? activities client identified theirs to include: sunlight, hobbies, movement, being creative. Appeared to benefit from increased awareness of current behaviors and impact these have on mental health. Will continue IOP to stabilize mood, improve functioning, prevent decompensation. Narrative Note: []
--- NOTE | 2024-07-04 11:10 | BH.SGPN.GN ---
Behaviors/Verbalizations/Mental Status: []Eye contact is good. Motor activity is appropriate. Appearance is neat. Speech is Appropriate. Mood is euthymic. Affect is full. Thoughts are linear and logical. No evidence of psychosis. Client Response/Progress/Benefit: [] Pt responded well to session, attentive and engaged in group discussions and activity. Group discussed values and the benefits that knowing one's values can have on one's mental health. Pt explored own values and identified personal top values. Pt stated a personally important value is spirituality. ?Pt set a goal to read Tarot cards at least twice this week. Pt also reported benefitting from the activity and the group encouragement today. Will continue in IOP to promote mood stability, reinforce healthy coping skills, and reduce negative thinking patterns. ? Narrative Note: []
--- NOTE | 2024-07-06 09:05 | BH.SGPN.GN ---
Behaviors/Verbalizations/Mental Status: [] Eye contact is good. Motor activity is appropriate. Appearance is casual. Speech is Appropriate. Mood is depressed/irritable. Affect is congruent. Thoughts are linear and logical. No evidence of psychosis. Reviewed daily check in sheet and no reports of suicidal ideations or intent. Client Response/Progress/Benefit: [] Pt was an active participant in group discussions. Attentive. Emotion for today is ?frustrated?. According to pt ? I?ve had a really stressful two days?. She elaborated on her struggles, thoughts, and emotions and how this has been impacting her functioning. Peers provided feedback, encouragement, and was able to challenge/reframe certain thoughts which was beneficial. Will continue in IOP to maintain safety, increase healthy coping, and improve functioning. Narrative Note: []
--- NOTE | 2024-07-06 11:15 | BH.SGPN.GN ---
Behaviors/Verbalizations/Mental Status: []Pt alert and oriented, casually dressed and groomed. Eye contact good. Motor activity appropriate. Speech within normal limits. Affect congruent, mood content. Thoughts linear, logical, no signs of hallucinations or delusions. Client Response/Progress/Benefit: [] Pt responded well to session AEB taking notes and contributing to discussion throughout. Pt engaged as group continued discussion on acceptance and the mental health benefits of practicing acceptance. Pt and peers identified what makes acceptance challenging and pt completed a self-reflection exercise on what is hard to accept in pt's life. Pt identified what is hard to accept in their life that they would like to work on is past trauma. Group identified strategies to increase acceptance and pt wants to practice self-compassion in order to increase acceptance. Pt appeared to benefit from gaining insight and learning strategies to increase acceptance. Pt will continue IOP tx to prevent decompensation, promote skill application, improve mood stability. Narrative Note: []
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
--- NOTE | 2024-07-07 09:00 | BH.SGPN.GN ---
Behaviors/Verbalizations/Mental Status: []Eye contact is good. Motor activity is appropriate. Appearance is casual. Speech is Appropriate. Mood is euthymic. Affect is congruent. Thoughts are linear and logical. No evidence of psychosis. Reviewed daily check in sheet and no reports of suicidal ideations or intent. Client Response/Progress/Benefit: []Pt responded well to session, attentive and engaged. Pt reports feeling mellow this morning. Pt identified mental health wins today which included expressing her needs to her boyfriend and having them respected, playing poker with her boyfriend, and getting a psych referral to get an autism evaluation. Pt shared she is looking forward to finally getting some answers instead of just speculating. Pt's stressor this morning was her boss scheduling pt for a day that pt already has an appointment, but pt thinks she can talk to her and get things shorted out. Pt appeared to benefit from reflecting on use of coping skills and connecting with peers. Pt will continue IOP tx to promote mood stability,reinforce the use of healthy coping skills, and further improve self-confidence. Narrative Note: []
--- NOTE | 2024-07-07 10:15 | BH.SGPN.GN ---
Behaviors/Verbalizations/Mental Status: [] Eye contact is good. Motor activity is appropriate. Appearance is casual. Speech is Appropriate. Mood is euthymic. Affect is full. Thoughts are linear and logical. No evidence of psychosis. Client Response/Progress/Benefit: [] Pt was engaged and an active participant throughout, providing input and taking notes. Participated throughout interactive discussion on defining anxiety and identifying cognitive and physiological symptoms of anxiety. Group discussed the role of anxiety on isolation, avoidance, and who this emotion impacts their ability to start and complete activities/goals. Pt identified their physical/physiological signs of anxiety (i.e. nausea, increased heart rate, butterflies, and headaches). Pt identified safety behaviors (i,e isolation, cancel plans, and reassurance seeking). Benefited from increased awareness and insight on anxiety and its impact. Will continue in IOP to maintain safety, prevent decompensation/re-admission to psych unit, and increase functioning. Narrative Note: []
--- NOTE | 2024-07-07 11:15 | BH.SGPN.GN ---
Behaviors/Verbalizations/Mental Status: []Pt alert and oriented, casually dressed and groomed. Eye contact good. Motor activity appropriate. Speech within normal limits. Affect congruent, mood euthymic. Thoughts linear, logical, no signs of hallucinations or delusions. Client Response/Progress/Benefit: []Pt was an active participant AEB pt providing input and listening attentively to peers. Attentive during psychoeducation on mindfulness coping skills and their impact on reducing anxiety and improving overall mental health wellness. Group was able to identify self-soothing and mind-based coping skills which included: 5-senses, meditation, deep breathing, TIPP, thought challenging, and progressive muscle relaxation. Pt also participated with peers in practicing mindfulness skills in session including deep breathing and PMR. Pt would like to work on using journaling and self-care to manage anxiety. Appeared to benefit from increasing repertoire of anxiety reduction skills. Pt will continue in [facility] tx to promote use of healthy coping skills, challenge distorted and negative thought patterns, and prevent decompensation
--- NOTE | 2024-07-12 09:00 | BH.SGPN.GN ---
Behaviors/Verbalizations/Mental Status: [] Client alert and oriented, casual appearance. Eye contact good. Motor activity appropriate. Speech within normal limits. Affect congruent, mood irritable. Thoughts linear, logical, no signs of hallucinations or delusions. Reviewed client's symptom tracker, no risk for suicidal ideation, plan, or intent. Client Response/Progress/Benefit: [] Client responded well to session AEB listening to others and sharing thoughts/feelings. Client stated mental positive was having a positive interaction with one of her coworkers that she has had some issues within the past. Client stated additional mental positive as going to the doctor to get some of her health concerns addressed instead of continuing to push situations off that make her anxious. Client stated current stressor is graduating from IOP this week. Client reported she can note positives in her's progress but is nervous about not having the same support. Appeared to benefit from support from peers. Will continue IOP tx to promote utilization of healthy coping skills, build confidence, and solidify aftercare plans. Narrative Note: []
--- NOTE | 2024-07-12 10:10 | BH.SGPN.GN ---
Behaviors/Verbalizations/Mental Status: []Pt alert and oriented, casually dressed and groomed. Eye contact good. Motor activity appropriate. Speech within normal limits. Affect congruent, mood calm. Thoughts linear, logical, no signs of hallucinations or delusions. Client Response/Progress/Benefit: [] Pt was attentive during psychoeducation and participated in group activity. Group discussed what contributes to a person?s perspective and how perspective can positively or negatively impact mental health treatment. Pt reflected on their perspective today and how it is impacting them. Pt shared their perspective today is ?hopeful and optimistic that I can get through hard times.? Pt shared this increases her motivation and gives her confidence. Pt appeared to benefit from increasing awareness of different perspectives and how they can affect mental health. Pt will continue IOP tx to promote mood stability, increase distress tolerance skills, and build self-confidence. ?? Narrative Note: []
--- NOTE | 2024-07-12 11:10 | BH.SGPN.GN ---
Behaviors/Verbalizations/Mental Status: []Pt alert and oriented, casually dressed and groomed. Eye contact good. Motor activity appropriate. Speech within normal limits. Affect congruent, mood content. Thoughts linear, logical, no signs of hallucinations or delusions. Client Response/Progress/Benefit: []Pt was attentive and contributed to group discussion. Pt worked with group to identify strategies that can help with challenging negative perspective. Pt completed strengths exploration worksheet, identifying love of learning, open-mindedness, and spirituality as personal strengths. Pt able to acknowledge how these strengths are helping pt and can continue to help pt in mental health journey. Pt identified wanting to work on leaning on strength of love of learning to continue to motivate her to step outside her comfort zone and try new things. Benefited from identifying personal strengths and strategies for enhancing use of identified strengths. Pt will continue IOP tx to maintain mood stability, encourage ongoing independent decision making, and prevent decompensation. Narrative Note: []
--- NOTE | 2024-07-12 11:55 | PCM.BH.PN ---
Progress Note Progress Note: History of Present Illness/Interim History: The patient is a 24-year-old single, female with a history of depression, anxiety, panic attacks and borderline personality disorder who is seen in follow-up at the [facility] behavioral health [facility]. I last saw the patient about 6 weeks ago and at that time no medication changes were made. The patient feels she is learning a lot in the IOP and is engaged in the program. She continues to have ongoing financial stress and new work stress but is able to cope better with it. She has not had any panic attacks since last visit. Her mood is less depressed and she is having less crying episodes. She is denies any guilt or hopelessness now. She feels her feelings are at a normal level now. Sleep has been good at 6 to 8 hours a night. She denies passive thoughts of , thoughts of self-harm, suicidal ideation, homicidal ideation, plan for suicide, hallucinations or delusions. Current Psychiatric Medications: [] Latuda 60 mg p.o. daily with food (increased 4 weeks ago); propranolol 10 mg p.o. twice daily; Topamax 50 mg p.o. at bedtime for mood and vestibular migraine headaches; trazodone 50 mg p.o. as needed at bedtime; rare use of Klonopin of unknown dose given by an out patient provider. Mental Status Examination: [] The patient is a 24-year-old female who appears normal for stated age and has 1 lip piercing and is wearing glasses. She is casually dressed and groomed with good hygiene and has no psychomotor agitation or retardation. She is ambulatory with a normal gait. She is cooperative during the interview. Eye contact is good and speech is normal rate and rhythm and fluent with no pressure. Mood is euthymic. Affect is full and normal. Thought process is goal-directed and organized. Thought content: Patient is somewhat hopeful for the future and feels she is learning valuable skills. There is no evidence of passive thoughts of , suicidal ideation, homicidal ideation, hallucinations or delusions. Reality testing is intact. Judgment is intact. Insight is fair and improving. Impulsivity is moderate. Diagnoses: [] 1. Major depressive disorder, recurrent,moderate 2. Generalized anxiety disorder 3. Panic disorder 4. Borderline personality disorder 5. Work and financial issues 6. Vestibular migraine headaches Plan: [] As she has improved due to the support, structure, education and group therapy at the [facility]. She felt safe during the interview and if it anytime she does not feel safe she agrees to let us know or go to the emergency room. No medication changes were made today. She will continue to follow-up with her outpatient providers.
--- NOTE | 2024-07-13 09:00 | BH.SGPN.GN ---
Behaviors/Verbalizations/Mental Status: [] Pt alert and oriented, neatly dressed and groomed. Eye contact good. Motor activity appropriate. Speech within normal limits. Affect congruent, mood euthymic and anxious. Thoughts linear, logical, no signs of hallucinations or delusions. Reviewed pt?s symptom tracker, no risk for suicidal ideation, plan, or intent 07/13/24 Client Response/Progress/Benefit: []Pt responded well to session, attentive and engaged. Pt reports feeling proud and anxious and hopeful. Pt reports she has having a lot of emotions about being discharged from IOP tomorrow. Pt can recognize her progress in being more assertive and self-compassionate, but she also is anxious to be leaving her support network. Pt's mental health wins today include having a good conversation with her mother and seeing how much kinder she has become to herself. Pt appeared to benefit from reflecting on progress and connecting with peers. Pt will continue IOP tx for one more session to reinforce healthy coping skills and establish aftercare. Narrative Note: []
--- NOTE | 2024-07-13 10:15 | BH.SGPN.GN ---
Behaviors/Verbalizations/Mental Status: []Client alert and oriented, casually dressed and groomed. Eye contact good. Motor activity appropriate. Speech within normal limits. Affect congruent, mood anxious and content. Thoughts linear, logical, no signs of hallucinations or delusions. Client Response/Progress/Benefit: []Pt was an attentive an active participant, AEB taking notes and providing input in group discussion when prompted. Attentive during psychoeducation. Pt engaged during interactive discussion in which the group defined self-care and discussed its benefits. Group discussed barriers to engaging in self-care. Group members together came up with guilt, time, ?people pleasing?, not knowing what to do, and perception that its unproductive as barriers to engage in self care. Pt stated their personal barrier is not making it a priority and putting other's needs before her own. Pt participated in small groups where they worked to identified and challenged common self-care ?myths?. Benefited from increased awareness of self-care, its benefits, and the consequences of not utilizing self-care strategies. Will continue IOP tx to continue to improve functioning, increase consistency of assertive communication and boundary setting, and prevent decompensation. Narrative Note: []
--- NOTE | 2024-07-13 11:15 | BH.SGPN.GN ---
Behaviors/Verbalizations/Mental Status: [] Client alert and oriented, casually dressed and groomed. Eye contact good. Motor activity appropriate. Speech within normal limits. Affect congruent, mood euthymic. Thoughts linear, logical, no signs of hallucinations or delusions. Client Response/Progress/Benefit: []Client engaged in discussion reviewing different areas of self-care and completing self-assessment of current self care, as well as providing input throughout discussion. Client completed worksheet identifying current self-care practices and what self-care activities client wants to start using. Client selected financial self-care to begin practicing more consistently. Client plans to do this by starting to meal prep on a more regular basis. Appeared to benefit from completing the self-care evaluation and gaining insights into current self-care practices, as well as identifying areas in which client would like to improve upon. Client will continue IOP tx to prevent decompensation and maintain mood stability. Narrative Note: []
--- NOTE | 2024-07-13 14:29 | BH.AFTERPLAN ---
Aftercare Plan Demographics Treatment End Date:: 07/14/24 Psychiatrist:: Soheila Juares Psychiatrist Office #:: [phone] [facility]/IOP Therapist:: Jenae Combs Therapist Phone #:: [phone] Medications Home Medications clonazepam 0.5 mg tablet (Klonopin) 0.5 mg PO DAILY PRN anxiety 05/17/24 lurasidone 40 mg tablet (Latuda) 40 mg PO DAILY 05/17/24 propranolol 10 mg tablet 10 mg PO BID 05/17/24 topiramate 100 mg tablet (Topamax) 100 mg PO BID 05/17/24 trazodone 50 mg tablet 50 mg PO QHS PRN insomnia 05/17/24 Plan Details Progress/Aftercare Plan Details:: Keturah has responded well to treatment as evidenced by Keturah consistently attending IOP sessions and her reduction of DSM-5 scores since admission. Keturah was always attentive and receptive to learning during group and individual sessions. Keturah actively applied coping skills outside of IOP and reports overall her mood is improved and she is functioning better than she was several months ago. Keturah?s overall symptom reduction is 36% since admission with anger decreasing by 33%, depression decreasing by 57%, SI decreasing by 100%, and anxiety decreasing by 44%. Keturah has increased self-compassion and faced many hard things. Most importantly, Keturah has become more vulnerable, flexible, and confident in her abilities. Strategies for Success:: 1. Opposite action! Continue to break that cycle of anxiety, guilt, and depression by not letting emotions be the only drivers of your bus. 2. Remember that thoughts are thoughts NOT facts! You have power in if you give thoughts the time of day or not. 3. self-care! You deserve to take time for you and you also deserve to face the not so fun self-care like not looking at certain media and advocating for yourself 4. Self-compassion! You are human and you will make a mistake?BUT that doesn?t mean you are a failure or not good enough. Remember there are no bad parts! 5. Continue to practice acceptance and remember acceptance means loving this version of you 6. Practice positive self-talk and keep track of your wins. 7. Remember progress isn?t linear! You may have a setback or bump in the road, but that doesn?t mean you?ve lost all progress. 8. self-reflection and self-awareness. 9. Be understanding with yourself and try to see the whole picture, not just the snapshot. 10. Live in the heredia!! Appointments Appointments/Referrals to Other Services:: 1. IOP aftercare group for 8 sessions. Starting 07/20/24 from 2-3:30pm 2. Individual counseling 07/18/24 3. [id number] 08/03/24
--- NOTE | 2024-07-14 10:10 | BH.SGPN.GN ---
Behaviors/Verbalizations/Mental Status: []Pt alert and oriented, casually dressed and groomed. Eye contact good. Motor activity appropriate. Speech within normal limits. Affect congruent, mood anxious, euthymic. Thoughts linear, logical, no signs of hallucinations or delusions. Client Response/Progress/Benefit: [] Pt responded well to session, contributing to discussion, and engaged during the activity. Group identified the benefits of change which included: increased confidence, improving mental health, and personal growth. Worked with the group to identify barriers to change, which included: uncomfortable emotions such as anxiety and fear, lack of awareness of how to make changes, worried about what others will think, and fear of the unknown. Pt participated along with group in activity where they identified and discussed the emotions related to change. Pt connected with peers that one can have many conflicting emotions when faced with change and shared struggling with feeling anxious about her ability to maintain changes which has resulted in giving up or not following through in the past. Benefited from increased awareness and understanding of emotions, benefits, and barriers related to change. Will d/c from IOP tx and continue outpatient counseling to maintain gains and prevent decompensation. Narrative Note: []
--- NOTE | 2024-07-14 11:10 | BH.SGPN.GN ---
Behaviors/Verbalizations/Mental Status: []Client alert and oriented, neatly dressed and groomed. Eye contact good. Motor activity appropriate. Speech within normal limits. Affect congruent, mood euthymic. Thoughts linear, logical, no signs of hallucinations or delusions. Client Response/Progress/Benefit: [] Pt responded well to session, attentive throughout. Did well to actively listen and contributed when prompted as group worked to process activity. Pt worked with group to relate the strategies used to overcome barriers in the activity to managing change in own life. Pt identified a change they would like to make is wanting to journal more. Pt identified currently being in the preparation stage for this change. Pt said challenging perfectionism thoughts and reminding herself that small things count too can help pt get to the next stage. Appeared to benefit from identifying a change they want and how to progress. Pt will discharge from IOP tx today as pt has accomplished her tx goals and no longer meets criteria for IOP level of care. Narrative Note: []
--- NOTE | 2024-07-14 14:26 | BH.DS_ITS ---
Discharge Summary Demographics Date of Admission:: 05/15/24 Discharge Date: 07/14/24 Presenting Problems at Admission:: Pt is a 24-year-old female with a history of MDD, DEL, BPD, and self-reported autism spectrum disorder. Pt was referred to [facility] following a hospitalization in April 2024 for suicidal ideation with plans to OD in the [place] [facility]. Pt is known to [facility] at [facility] and successfully completed the program in 2019. Pt presents to [facility] with a depressed mood, recent SI, negative t houghts of self, excessive guilt, anhedonia, and lack of motivation. Pt also reports symptoms of BPD including periods of dissociation, erratic moods, feelings of emptiness, and poor sense of self. Pt's panic attacks have been impacting pt's ability to work and function on a daily basis as well. Discharge Diagnoses:: Major depressive disorder, recurrent, severe without psyc hosis F 33.2; Generalized anxiety disorder; Panic disorder; Borderline personality disorder Treatment Progress During Treatment & Response: Pt has responded well to treatment as evidenced by Pt consistently attending IOP sessions and her reduction of DSM-5 scores since admission. Pt was always attentive and receptive to learning during group and individual sessions. Pt actively applied coping skills outside of [facility] and reports overall her mood is improved and she is functioning better than she was several months ago. Pt?s overall symptom reduction is 36% since admission with anger decreasing by 33%, depression decreasing by 57%, SI decreasing by 100%, and anxiety decreasing by 44%. Pt has increased self-compassion and faced many hard things. Most importantly, Pt has become more vulnerable, flexible, and confident in her abilities. Issues Still to be Addressed:: Pt can benefit from continuing to work on building a secure attachment, challenging distortions, and improving self- confidence. Pt can benefit from ongoing medication management and outpatient counseling. Discharge Recommendations/Instructions:: Pt will follow up with her psych provider at [place] [id number] on 4 and her individual therapist on 07/18/24. Pt also plans to start [facility] aftercare group on 07/27/24. Discharge Handout
--- NOTE | 2024-07-14 14:26 | BH.MDN ---
Multi-Disciplinary Note Note 30-min Individual: Time Started:: 09:20 Date: 07/14/24 Purpose of session/treatment goals addressed:: To review pt progress, maintenance plan, and aftercare plan. Another goal was to provide closure for IOP tx. Eye Contact:: Good Motor Activity:: Appropriate Appearance:: Neat Speech:: Appropriate Mood:: Euthymic Affect:: Full Thoughts:: Linear, Logical and No evidence of hallucinations/delusions noted Staff Interventions:: discharge planning, strengths perspective, reviewed DSM-5 and other (reviewed pt's maintenance plan.) Client Response:: Pt responded well to session, open to meeting with therapist. Pt reports feeling all the feelings today on her last day. Pt completed her maintenance plan and identified things she wants to continue doing to maintain wellness. Pt's self-care plan included taking meds, going out into the bill, journaling, being spiritual, going on regular date nights, moving my body, and getting consistent sleep. Pt shared she feels like herself again and she could note a lot of progress. Pt shared she and her boyfriend's relationship has improved as well and pt feels she will continue to use the skills she gained in IOP. Pt plans to look for a new job now that she is feeling better and pt identified certain job red flags she can be mindful of to avoid another toxic work environment as this is what triggered pt's hospitalization. Pt shared when she is looking for jobs she plans to ask about turnover and work-life balance. Pt recognizes that she is more confident than she was months ago and she has been being more assertive on a consistent basis. Pt plans to continue with outpatient counseling and pt will participate in IOP aftercare group. Risks/Concerns:: No report of thoughts or or SI. Progress Toward Goals/Plan:: Pt has responded well to treatment as evidenced by Pt consistently attending IOP sessions and her reduction of DSM-5 scores since admission. Pt was always attentive and receptive to learning during group and individual sessions. Pt actively applied coping skills outside of IOP and reports overall her mood is improved and she is functioning better than she was several months ago. Pt?s overall symptom reduction is 36% since admission with anger decreasing by 33%, depression decreasing by 57%, SI decreasing by 100%, and anxiety decreasing by 44%. Pt will discharge from IOP tx today as pt has accomplished her tx goals as noted above and no longer meets criteria for IOP level of care. Time Stopped:: 09:50
== END 2024-07-14 12:00 | disposition home or self-care (01) ==
LOC: BHIOP 07:14
PROVIDERS: Referring Provider Psychiatry & Neurology Psychiatry; Visit Provider Psychiatry & Neurology Psychiatry
DX: F33.2 Major depressive disorder, recurrent severe without psychotic features (principal); F41.1 Generalized anxiety disorder; G43.809 Other migraine, not intractable, without status migrainosus; F41.0 Panic disorder [episodic paroxysmal anxiety]; Z79.899 Other long term (current) drug therapy
CPT/HCPCS: H2012; H2020; S9480; 90832; 90834; 90837; 90847

== ENCOUNTER 2024-07-27 14:00 | Outpatient (RCR) | payer MEDICAID, SELFPAY ==
--- NOTE | 2024-07-27 14:00 | BH.COMM ---
Communication Note Communication with Client Communication Note: Patient completed IOP and presents today to start relapse prevention group which meets once weekly (1.5 hours) for 8 weeks. Case discussed with Dr. Bailey with plan to admit with dx of F33.2
--- NOTE | 2024-07-27 15:45 | BH.MTP ---
Master Treatment Plan Patient Information Program Physician:: Dr. Soheila Juares Primary Therapist:: Jenae RIOS Psychiatric Diagnoses Psychiatric Diagnoses:: Major depressive disorder, recurrent, severe without psychosis F 33.2; Generalized anxiety disorder; Panic disorder; Borderline personality disorder Diagnosis Code(s):: F 33.2 Estimated LOS Estimated LOS (in weeks):: 8 Problem/Goal #1 Problem/Goal #1 Stated Goal:: client will maintain or see a reduction in symptoms AEB client score on the DSM 5 cross-cutting measure and improve client's daily functioning. Objectives Objective #1: Stated Objective: Client will continue to consistently apply healthy coping skills to maintain progress made in IOP tx. Interventions: Through group therapy, client will review warning signs and triggers as well as healthy coping skills learned in IOP tx to successfully maintain gains while transitioning into outpatient therapy. Discharge Criteria: Client will have accomplished this goal when client's score on the DSM-5 cross-cutting measure has maintained or reduced over a 8 week period. Target Date: 09/21/24 Review Date: 08/24/24 Status: open Objective #2: Stated Objective: Client will learn and utilize 2-3 maintenance strategies to prevent decompensation from original IOP DSM-5 scores. Interventions: Through group therapy, client will be provided with education on healthy maintenance behaviors, relapse prevention techniques, and healthy coping strategies. Discharge Criteria: Client will have accomplished this goal when can report using at least 2 maintenance skills to prevent decompensation compared to original IOP DSM-5 scores Target Date: 09/21/24 Review Date: 08/24/24 Status: open
--- NOTE | 2024-08-03 14:00 | BH.SGPN.GN ---
Behaviors/Verbalizations/Mental Status: []Pt alert and oriented, casually dressed. Eye contact good. Motor activity appropriate. Speech within normal limits. Affect congruent, mood stressed and down. Thoughts linear, logical, no signs of hallucinations or delusions. Client Response/Progress/Benefit: []Pt receptive of session, engaged and providing supportive feedback throughout group. Pt reports being consistent with counseling, medication management, and use of healthy coping skills. Pt shared this was a more difficult week emotionally, so pt had to use opposite action, taking breaks, and using thought stopping. Pt engaged in the discussion about self-love and participated in the experiential activity that highlighted the acceptance component of self-love. Pt responded well to discussion of self-acceptance and ?no bad parts? and pt wants to work on writing a letter to her inner child. Seemed to benefit from reviewing treatment progress and strategies for managing current stressors, as well as learning about how to increase self-love. Pt to continue IOP aftercare tx to promote mood stability, reinforce gains made in IOP, and review coping skills from IOP. Narrative Note: []
== END 2024-08-14 23:59 ==
LOC: BHOG 14:00
PROVIDERS: Referring Provider Psychiatry & Neurology Psychiatry; Visit Provider Psychiatry & Neurology Psychiatry
DX: F33.2 Major depressive disorder, recurrent severe without psychotic features (principal); F41.1 Generalized anxiety disorder; F41.0 Panic disorder [episodic paroxysmal anxiety]; F60.3 Borderline personality disorder
CPT/HCPCS: 90853

== ENCOUNTER 2024-08-15 08:07 | Outpatient (RCR) | payer MEDICAID, SELFPAY ==
--- NOTE | 2024-08-17 14:00 | BH.SGPN.GN ---
Behaviors/Verbalizations/Mental Status: []Pt alert and oriented, casually dressed and groomed. Eye contact good. Motor activity appropriate. Speech within normal limits. Affect congruent, mood euthymic. Thoughts linear, logical, no signs of hallucinations or delusions. Client Response/Progress/Benefit: []Pt receptive of session, engaged throughout. Pt shared they have met with their outpatient providers since last session, and have connected successfully with case management. Pt has been taking medications consistently and reports utilizing healthy coping skills outside of aftercare. These skills included: gratitude reflection, checking in with her supports, and breaking things down into smaller chunks. ?Receptive of discussion on sitting with the uncomfortable and emotional urges. Pt contributed to the discussion of distress tolerance and how building distress tolerance can help improve mood stability and resilience. Pt wants to keep building distress tolerance by not fixating on frustrating customers while at work. Pt seemed to benefit from support from peers and increasing understanding of distress tolerance. Will continue aftercare to reinforce healthy coping skills and improve daily functioning. Narrative Note: []
--- NOTE | 2024-08-17 15:03 | BH.TPR ---
Treatment Plan Review Demographics Date of Admission:: 07/27/24 Date of Treatment Plan Review:: 08/17/24 Admitting Diagnoses:: Major depressive disorder, recurrent, severe without psychosis F 33.2; Generalized anxiety disorder; Panic disorder; Borderline personality disorder Current Diagnoses:: Major depressive disorder, recurrent, severe without psychosis F 33.2; Generalized anxiety disorder; Panic disorder; Borderline personality disorder Patient Status Patient's Response to Treatment:: Pt continues to respond well to treatment AEB pt's consistent attendance, ongoing attentiveness and engagement in group discussions, and continued reporting use of skills outside treatment environment. Pt's symptoms are still 30% lower than they were at IOP admission. Status of Current Problems and Symptoms: Pt has ongoing stressors with finances that exacerbate pt's anxiety and lead to overthinking and panic. Pt also is reporting stress with setting and maintaining boundaries with her work which leads to anxiety and negative thinking patterns. Progress Problem #1: Problem Name:: Pt will maintain or see a reduction in sx Status of Goals:: Obj 1 - partially complete with ongoing work encouraged. Pt's DSM 5 scores for depression are 43% lower than they were at IOP admission but her anxiety scores have returned to their IOP admission score. Pt acknowledges this is due to issues with finances. Obj 2 - complete with ongoing work encouraged. Pt had been reporting using opposite action, self-compassion, exercise, and dialectical thinking. Pt is also working on finding a new job. Team Recommendations:: Recommended client continue IOP aftercare group in addition to attending regular outpatient counseling in order to maintain gains. Pt also recommended to continue working on self-compassion, practice self-care, and setting realistic goals.
--- NOTE | 2024-08-24 14:00 | BH.SGPN.GN ---
Behaviors/Verbalizations/Mental Status: []Client alert and oriented, casually dressed and groomed. Eye contact good. Motor activity appropriate. Speech within normal limits. Affect congruent, mood euthymic and anxious. Thoughts linear, logical, no signs of hallucinations or delusions. Client Response/Progress/Benefit: [] Pt responded well to session AEB sharing and listening attentively to others. Pt did not have therapy or psychiatry appointments this week, but she is taking her medications regularly. Pt stated using opposite action and taking to supports as her primary coping skills this week. Pt is stressed about money, and she is still trying to find a new job. Pt participated in group discussion defining vulnerability, how and why we avoid it, and the benefits. Pt was an active participant and provided personal examples of being vulnerable and the positive things that came with this. Pt stated that he would like to practice vulnerability this week by applying for a job she really wants. Will continue aftercare treatment to reinforce healthy coping skills and promote gains. Narrative Note: []
--- NOTE | 2024-09-14 14:00 | BH.SGPN.GN ---
Behaviors/Verbalizations/Mental Status: []Pt alert and oriented, casually dressed and groomed. Eye contact good. Motor activity appropriate. Speech within normal limits. Affect constricted, mood anxious and euthymic. Thoughts linear, logical, no signs of hallucinations or delusions. Client Response/Progress/Benefit: []Pt receptive of session, engaged throughout. Pt has been somewhat consistent with medications per her report and recently got a new medication. Pt saw saw her therapist and psychiatrist recently. Pt reported using coping skills such as: self-care, opposite action, and positive self-talk. Receptive of discussion on ?Chapters of my life? poem. Pt contributed to the discussion of the different chapters one may go through and how they connect with current mental health progress. Pt reflected and identified their current chapter as 3 because I'm more confident at not falling into my old ways, but I still do.Pt is working on not falling back into old patterns and pt hopes she gets this new job which would help pt continue to make healthier decisions. Identified that taking more time to engage in self-care and reach out to supports would help with getting to the next chapter. Pt seemed to benefit from support from peers and increasing understanding of ?Chapters of my life?. Will continue IOP aftercare to maintain gains and prevent decompensation. Narrative Note: []
== END 2024-09-14 23:59 ==
LOC: BHOG 08:07
PROVIDERS: Referring Provider Psychiatry & Neurology Psychiatry; Visit Provider Psychiatry & Neurology Psychiatry
DX: F33.2 Major depressive disorder, recurrent severe without psychotic features (principal); F41.1 Generalized anxiety disorder; F41.0 Panic disorder [episodic paroxysmal anxiety]; F60.3 Borderline personality disorder
CPT/HCPCS: 90853

== ENCOUNTER 2024-09-15 07:31 | Outpatient (RCR) | payer MEDICAID, SELFPAY ==
--- NOTE | 2024-09-21 14:00 | BH.SGPN.GN ---
Behaviors/Verbalizations/Mental Status: []Pt alert and oriented, casually dressed and groomed. Eye contact fair to good. Motor activity appropriate. Speech within normal limits. Affect congruent, mood content, positive. Thoughts linear, logical, no signs of hallucinations or delusions. Client Response/Progress/Benefit: []Pt responded well to session AEB sharing and listening attentively to others. Pt has scheduled outpatient mental health appointments for early next month and maintains medication compliance. Pt reports using positive self-talk, opposite action, socializing, and staying off of social media to help with managing mental health symptoms. Pt participated in group discussion defining affirmations and why they are important. Pt provided insight throughout clinician?s presentation of tips for writing personal affirmations and wrote their own affirmations, including ?I am working on improving my mood, I am worthy of improving my relationship with myself, and I have the right to take time for myself?. Pt appeared to benefit from increased knowledge of affirmation writing skills and creating their own affirmation statements to remind themselves of outside tx environment. Will continue aftercare tx to promote consistent mental health maintenance and prevent decompensation. Narrative Note: []
== END 2024-09-29 07:11 | disposition home or self-care (01) ==
LOC: BHOG 07:31
PROVIDERS: Referring Provider Psychiatry & Neurology Psychiatry; Visit Provider Psychiatry & Neurology Psychiatry
DX: F33.2 Major depressive disorder, recurrent severe without psychotic features (principal); F41.1 Generalized anxiety disorder; F41.0 Panic disorder [episodic paroxysmal anxiety]; F60.3 Borderline personality disorder
CPT/HCPCS: 90853